=== PATIENT | female | born 1940 | race African-American/Black ===

== ENCOUNTER 2018-02-18 17:46 | Emergency (ER) | payer MEDICARE ==
[~2018-02-18] VITALS: Ht 160 cm; Wt 88.9 kg
[~2018-02-18 17:46] MED LIST: ASA81 MG PO; CLARITIN10 MG PO; COREG3.125 MG PO; DIGITEK125 MCG PO; FLONASE16 GM; FUROSEMIDE; GABAPENTIN300 MG PO; GLYBURIDE MICR1.5 M1; GLYBURIDE1.25 MG PO; IMODIUM2 MG PO; KAOPECTATE240 MG PO; LASIX40 MG PO; LOSARTAN POTASS25 MG PO; PROBIOTIC1 EACH PO; PURELAX510 GM; SINGULAIR10 MG PO; TOVIAZ8 MG PO; TYLENOL 8 HOUR650 MG PO; Z.0.ALDACTONE25 MG PO; Z.0.CORDARONE200 MG PO; Z.0.COREG3.125 MG PO; Z.0.LOSARTAN POTASS2 PO; Z.0.NEURONTIN100 MG; Z.0.NEXIUM40 MG PO; Z.0.NITROSTAT0.4 MG PO; Z.0.PHENERGAN25 M1; Z.0.VESICARE10 MG; Z.0.ZOCOR10 MG PO
[2018-02-18 18:24] LABS: BASOPHILS # (AUTO) 0.1 (0.0-0.1); BASOPHILS % 0.8 % (0.0-1.0); EOSINOPHILS # (AUTO) 0.1 (0.0-0.4); EOSINOPHILS % 1.7 % (0.0-6.0); HEMOGLOBIN 12.3 g/dL (12.0-16.0); LYMPHOCYTES # (AUTO) 2.1 (1.0-3.2); LYMPHOCYTES % 29.3 % (18.0-39.1); MEAN CORPUSCULAR HEMOGLOBIN 27.8 pg (28-32); MEAN CORPUSCULAR HGB CONC 33.2 g/dL (31-35); MEAN CORPUSCULAR VOLUME 83.5 fL (81-99); MONOCYTES # (AUTO) 0.7 (0.2-0.8); MONOCYTES % 9.5 % (4.4-11.3); NEUTROPHILS # (AUTO) 4.1 (2.1-6.9); NEUTROPHILS % 58.6 % (38.7-80.0); PLATELET COUNT 133 x10e3/uL (140-360); RED BLOOD COUNT 4.43 x10e6/uL (3.6-5.1); RED CELL DISTRIBUTION WIDTH 14.2 % (11.7-14.4)
[2018-02-18 18:32] LABS: INR 1.15; PROTHROMBIN TIME 13.8 seconds (11.9-14.5)
[2018-02-18 18:33] LABS: PARTIAL THROMBOPLASTIN TIME 28.1 seconds (23.8-35.5)
--- NOTE | 2018-02-18 18:40 | Diagnostic Imaging Report ---
Chest, one view. History: Chest pain. Comparison: 12/28/2013. Findings: There is a tri-lead left chest cardiac device in place. The heart is mildly enlarged, unchanged.. There is a small right pleural effusion. Mild prominence of the central pulmonary vasculature. Perihilar peribronchial thickening. There is no consolidated pneumonia or pneumothorax. There are degenerative changes about the visualized osseous structures.. Impression: Mild pulmonary venous congestion. Signed by: Dr. Narendra Scruggs M.D. on 02/18/2018 6:37 PM
[2018-02-18 18:42] LABS: ALBUMIN 3.5 g/dL (3.5-5.0); ALBUMIN/GLOBULIN RATIO 1.1 (0.8-2.0); CALCIUM 9.2 mg/dL (8.4-10.2); CREATININE, SERUM 1.08 mg/dL (0.57-1.11)
[2018-02-18 20:31] VITALS: BP 125/60
== END 2018-02-18 20:48 | disposition home or self-care (01) ==
LOC: ER 17:46
DX: R07.89 Other chest pain (principal); I10 Essential (primary) hypertension; E11.9 Type 2 diabetes mellitus without complications; I50.9 Heart failure, unspecified; I48.91 Unspecified atrial fibrillation; K21.9 Gastro-esophageal reflux disease without esophagitis; E78.5 Hyperlipidemia, unspecified
CPT/HCPCS: 36415; 71045; 80053; 82550; 82553; 83880; 84484; 85025; 85610; 85730; 93005; 99284

== ENCOUNTER 2018-08-27 10:56 | Observation (INO) | payer MEDICARE ==
[~2018-08-27] VITALS: Ht 158.8 cm; Wt 88.9 kg
--- OUTSIDE RECORDS SUMMARY | 2018-08-27 11:00 | XMS REPORT | Continuity of Care Document ---
Author Author [facility] Interface Address Unknown Phone Unavailable Problems Problem Status Onset Date Classification Date Reported Comments Source Lower abdominal pain, unspecified 11/26/2017 02/22/2018 [facility] ANGINA MESENTERIC Active 11/14/2017 [facility] ANGINA Active 11/14/2017 [facility] ABDOMINAL PAIN Active 06/04/2016 [facility] ABD PAIN Active 06/04/2016 [facility] GENERALIZED WEAKNESS, UTI, DIARRHEA Active 06/25/2014 [facility] DIARRHEA Active 06/25/2014 [facility] Arthritis Resolved Problem 02/22/2018 [facility] Congestive heart disease Resolved Problem 02/22/2018 [facility] DM , type 2(<span ID="[id number]">Confirmed</span>) Active Problem 02/22/2018 [facility] Hypertension Active Problem 02/22/2018 [facility] UTI (<span ID="[id number]">Confirmed</span>) Resolved Problem 02/22/2018 [facility] Chronic vascular disorders of intestine 02/22/2018 [facility] Encounter for immunization 02/22/2018 [facility] Abnormal weight loss 02/22/2018 [facility] Constipation, unspecified 02/22/2018 [facility] Hypertensive heart and chronic kidney disease with heart failure and stage 1 through stage 4 chronic kidney disease, or unspecified chronic kidney disease 02/22/2018 [facility] Chronic systolic heart failure 02/22/2018 [facility] Chronic kidney disease, stage 3 02/22/2018 [facility] Type 2 diabetes mellitus with diabetic chronic kidney disease 02/22/2018 [facility] Dilated cardiomyopathy 02/22/2018 [facility] Umbilical hernia without obstruction or gangrene 02/22/2018 [facility] Obstructive sleep apnea (pediatric) 02/22/2018 [facility] Pure hypercholesterolemia, unspecified 02/22/2018 [facility] Spondylosis without myelopathy or radiculopathy, lumbar region 02/22/2018 [facility] Unspecified osteoarthritis, unspecified site 02/22/2018 [facility] Morbid obesity due to excess calories 02/22/2018 [facility] Presence of automatic cardiac defibrillator 02/22/2018 [facility] nursing home use of insulin 02/22/2018 [facility] Diabetes Resolved Problem 02/22/2018 [facility] COUGH Active [facility] COUGH Active [facility] MALAISE AND FATIGUE NEC Active [facility] GENERALIZED ABDOMINAL PAIN Active [facility] EDEMA, UNSPECIFIED Active [facility] CHRONIC VASCULAR DISORDERS OF INTESTINE Active [facility] Medications Medication Details Route Status Patient Instructions Ordering Provider Order Date Source Levemir 30 unit, Route: SUB-Q, Bedtime, Dosing Weight 89.091, kg, Start date: 11/15/17 21:00:00 CDT, Duration: 30 day, Stop date: 12/14/17 21:00:00 CDT No Longer Active 11/16/2017 [facility] insulin glargine 30 unit, 0.3 mL, Route: SUB-Q, Drug form: SOLN, Bedtime, Start date: 11/15/17 21:00:00 CDT, Duration: 30 day, Stop date: 12/14/17 21:00:00 CDTNotes: (Same as: Lantus) Do not hold insulin without cont acting prescriber WASTE: F/P - Black; E - Solexa Trash Bin "single patient use only" No Longer Active 11/16/2017 [facility] Ditropan 5 mg, 1 tab, Route: PO, Drug form: TAB, BID, Start date: 11/15/17 9:00:00 CDT, Duration: 30 day, Stop date: 12/14/17 17:00:00 CDTNotes: Same as: Ditropan) No Longer Active 11/15/2017 [facility] Losartan 25 mg, 1 tab, Route: PO, Drug form: TAB, Daily, Dosing Weight 89.091, kg, Start date: 11/15/17 9:00:00 CDT, Duration: 30 day, Stop date: 12/14/17 9:00:00 CDTNotes: (Same as: Cozaar) Inactive 11/15/2017 [facility] Tradjenta 5 mg, Route: PO, Drug form: TAB, Daily, Dosing Weight 89.091, kg, Start date: 11/15/17 9:00:00 CDT No Longer Active 11/15/2017 [facility] Toviaz 8 mg, Route: PO, Drug form: ERTAB, Daily, Dosing Weight 89.091, kg, Start date: 11/15/17 9:00:00 CDT, Duration: 30 day, Stop date: 12/14/17 9:00:00 CDT No Longer Active 11/15/2017 [facility] Digoxin 0.125 MG Oral Tablet 0.125 mg, 1 tab, Route: PO, Drug form: TAB, Daily, Dosing Weight 89.091, kg, Start date: 11/15/17 9:00:00 CDT, Duration: 30 day, Stop date: 12/14/17 9:00:00 CDTNotes: Take on an Empty Stomach (Same as: Lanoxin) No Longer Active 11/15/2017 [facility] Tradjenta 5mg Tablet Tradjenta 5mg Tablet, 1 tab, Drug form: MISC, Route: PO, Daily, 11/15/17 9:00:00 CDT, Duration: 30 day, Stop date: 12/14/17 9:00:00 CDT No Longer Active 11/15/2017 [facility] Coreg 3.125 mg, 1 tab, Route: PO, Drug form: TAB, Daily, Dosing Weight 89.091, kg, Start date: 11/15/17 9:00:00 CDT, Duration: 30 day, Stop date: 12/14/17 9:00:00 CDTNotes: Give with food. (Same As: Coreg) No Longer Active 11/15/2017 [facility] Streptococcus pneumoniae serotype 1 capsular antigen diphtheria [id number] protein conjugate vaccine / Streptococcus pneumoniae serotype 14 capsular antigen diphtheria [id number] protein conjugate vaccine / Streptococcus pneumoniae serotype 18C capsular antigen d 0.5 mL, Route: IM, Drug Form: INJ, Daily, Start date: 11/15/17 9:00:00 CDT, Duration: 1 doses or times, Stop date: 11/15/17 9:00:00 CDTNotes: Shake well prior to use (Same as: Prevnar 13) Inactive 11/15/2017 [facility] Amiodarone 200 mg, 1 tab, Route: PO, Drug form: TAB, Daily, Dosing Weight 89.091, kg, Start date: 11/15/17 9:00:00 CDT, Duration: 30 day, Stop date: 12/14/17 9:00:00 CDTNotes: (Same as: Cordarone) No Longer Active 11/15/2017 [facility] Simvastatin 10 mg, 1 tab, Route: PO, Drug form: TAB, Bedtime, Dosing Weight 89.091, kg, Start date: 11/14/17 21:00:00 CDT, Duration: 30 day, Stop date: 12/13/17 21:00:00 CDTNotes: (Same as: Zocor) No Longer Active 11/15/2017 [facility] montelukast 10 mg, 1 tab, Route: PO, Drug form: TAB, Bedtime, Dosing Weight 89.091, kg, Start date: 11/14/17 21:00:00 CDT, Duration: 30 day, Stop date: 12/13/17 21:00:00 CDTNotes: (Same as:Singulair) No Longer Active 11/15/2017 [facility] normal saline 0.9% IV 500 mL 500 mL, Rate: 50 ml/hr, Infuse over: 10 hr, Route: IV, Dosing Weight 89.091 kg, Total Volume: 500, Start date: 11/14/17 19:49:00 CDT, Stop date: 12/14/17 20:00:00 CDT, 2.02, m2 No Longer Active 11/15/2017 [facility] Dicyclomine 20 mg, 1 tab, Route: PO, Drug form: TAB, Q6H, Dosing Weight 89.091, kg, Start date: 11/14/17 18:00:00 CDT, Duration: 30 day, Stop date: 12/14/17 12:00:00 CDTNotes: (Same as: Bentyl) No Longer Active 11/14/2017 [facility] Acetylcysteine 200 MG/ML Inhalant Solution 600 mg, 3 mL, Route: PO, Drug form: SOLN, BID, Dosing Weight 100.256, kg, Start date: 11/14/17 17:00:00 CDT, Duration: 2 day, Stop date: 11/16/17 9:00:00 CDTNotes: for oral use only No Longer Active 11/14/2017 [facility] Docusate 100 mg, 1 cap, Route: PO, Drug form: CAP, BID, Dosing Weight 100.256, kg, Start date: 11/14/17 17:00:00 CDT, Duration: 30 day, Stop date: 12/14/17 9:00:00 CDTNotes: (Same as: Colace) (Do Not Crush) No Longer Active 11/14/2017 [facility] pantoprazole 40 mg, 1 tab, Route: PO, Drug form: ECTAB, BID-Before Meals, Dosing Weight 89.091, kg, Start date: 11/14/17 16:30:00 CDT, Duration: 30 day, Stop date: 12/14/17 7:30:00 CDTNotes: Tablet should not be chewed or crushed. (Same as: Protonix) No Longer Active 11/14/2017 [facility] Insulin, Aspart, Human 7 unit, Route: SUB-Q, TID-Before Meals, Dosing Weight 89.091, kg, Start date: 11/14/17 16:30:00 CDT, Duration: 30 day, Stop date: 12/14/17 11:30:00 CDT Inactive 11/14/2017 [facility] Humalog 7 unit, 0.07 mL, Route: SUB-Q, Drug form: SOLN, TID-Before Meals, Start date: 11/14/17 16:30:00 CDT, Duration: 30 day, Stop date: 12/14/17 11:30:00 CDTNotes: (Same as: Humalog ) Roll in palms of hands g ently; Do not shake `vigorously. "Single Patient Use Only " WASTE: F/P - Black; E - Municipal Trash Bin Stable for 28 days at room temperature. Expires in days from Date No Longer Active 11/14/2017 [facility] gabapentin 300 MG Oral Capsule 300 mg, 1 cap, Route: PO, Drug form: CAP, Q8H, Dosing Weight 89.091, kg, Start date: 11/14/17 16:00:00 CDT, Duration: 30 day, Stop date: 12/14/17 8:00:00 CDTNotes: (Same as: Neurontin) No Longer Active 11/14/2017 [facility] Pls bring home med Toviaz and Tradjenta to pharmacy for labe Pls bring home med Toviaz and Tradjenta to pharmacy for labe, Galindo RN, Drug form: MISC, Route: MISC, Continuous, 11/14/17 15:30:00 CDT, Duration: 30 day, Stop date: 12/14/17 15:29:00 CDT Inactive 11/14/2017 [facility] Insulin Lispro 5 unit, 0.05 mL, Route: SUB-Q, Drug form: SOLN, TID-Before Meals, Dosing Weight 89.091, kg, PRN Blood Glucose Results, Start date: 11/14/17 14:56:00 CDT, Duration: 30 day, Stop date: 12/14/17 14:55:0 0 CDTNotes: (Same as: Humalog ) Roll in palms of hands gently; Do not shake `vigorously. "Single Patient Use Only " WASTE: F/P - Black; E - Municipal Trash Bin Stable for 28 days at room temperature. Expires in days from Date No Longer Active 11/14/2017 [facility] Dextrose 50% Syringe 12.5 gm, 25 mL, Route: IVP, Drug Form: INJ, Dosing Weight 89.091, kg, PRN, PRN Blood Glucose Results, Start date: 11/14/17 14:56:00 CDT, Duration: 30 day, Stop date: 12/14/17 14:55:00 CDT No Longer Active 11/14/2017 [facility] Glucagon 1 mg, Route: IM, Drug form: PDR/INJ, PRN, Dosing Weight 89.091, kg, PRN Blood Glucose Results, Start date: 11/14/17 14:56:00 CDT, Duration: 30 day, Stop date: 12/14/17 14:55:00 CDT No Longer Active 11/14/2017 [facility] Albuterol 0.833 MG/ML / Ipratropium [place] 0.167 MG/ML Inhalant Solution 3 mL, Route: INHALATION, Drug Form: SOLN, Dosing Weight 89.091, kg, BID, PRN as needed for shortness of breath or wheezing, Start date: 11/14/17 14:54:00 CDT, Duration: 30 day, Stop date: 12/14/17 14:53:00 CDTNotes: (Same as: Duoneb) No Longer Active 11/14/2017 [facility] Nitroglycerin 0.4 MG Sublingual Tablet [Nitrostat] 0.4 mg, 1 tab, Route: SL, Drug form: TAB, Q5Min, Dosing Weight 89.091, kg, PRN Chest Pain, Start date: 11/14/17 14:54:00 CDT, Duration: 3 doses or times, Stop date: Limited # of timesNotes: (Same as:Nitroquick, Nitrostat) "Do Not Crush" Sublingual tablet No Longer Active 11/14/2017 [facility] Insulin, Aspart, Human 7 unit, SUB-Q, TID-Before Meals, 0 Refill(s) Active 11/14/2017 [facility] Ondansetron 4 mg, 2 mL, Route: IVP, Drug form: INJ, Q6H, Dosing Weight 100.256, kg, PRN Nausea & Vomiting, Start date: 11/14/17 12:03:00 CDT, Duration: 30 day, Stop date: 12/14/17 12:02:00 CDTNotes: (Same as: Mika) MEDICATION WASTE Product Size: 4 mg Product Wasted: ___ mg No Longer Active 11/14/2017 [facility] Acetaminophen 325 mg, 1 tab, Route: PO, Drug form: TAB, Q4H, Dosing Weight 100.256, kg, PRN Pain Score 4-6, Start date: 11/14/17 12:03:00 CDT, Duration: 30 day, Stop date: 12/14/17 12:02:00 CDTNotes: Do not exceed 4 gm/day. (Same as: Tylenol) No Longer Active 11/14/2017 [facility] pantoprazole 40 mg oral enteric coated tablet 40 mg=1 tab, PO, BID-Before Meals, # 60 tab, 0 Refill(s) Active 06/09/2016 [facility] montelukast 10 mg oral tablet 10 mg=1 tab, PO, Bedtime, 0 Refill(s) Active 06/09/2016 [facility] gabapentin 300 MG Oral Capsule 300 mg=1 cap, PO, Q8H, # 30 cap, 0 Refill(s) Active 06/09/2016 [facility] dicyclomine 20 mg oral tablet 20 mg=1 tab, PO, Q6H, # 30 tab, 0 Refill(s) Active 06/09/2016 [facility] Linagliptin 5 MG Oral Tablet [Tradjenta] 5 mg=1 tab, PO, Daily, # 30 tab, 3 Refill(s) Active 06/09/2016 [facility] cefpodoxime 200 MG Oral Tablet [Vantin] 200 mg=1 tab, PO, Q12H, # 6 tab, 0 Refill(s) Active 06/09/2016 [facility] pantoprazole 40 mg, 1 tab, Route: PO, Drug form: ECTAB, BID-Before Meals, Dosing Weight 100.256, kg, Start date: 06/08/16 17:49:00 CDT, Duration: 30 day, Stop date: 07/08/16 16:30:00 CSTNotes: Tablet should not be chewed or crushed. (Same as: Protonix) No Longer Active 06/08/2016 [facility] ergocalciferol 50,000 IntlUnit, 1 cap, Route: PO, Drug form: CAP, Daily, Dosing Weight 100.256, kg, Start date: 06/08/16 9:00:00 CDT, Duration: 3 day, Stop date: 06/10/16 9:00:00 CDTNotes: (Same as: Vitamin D) "Do Not Crush" No Longer Active 06/08/2016 [facility] Calcium Chloride 0.0014 MEQ/ML / Potassium Chloride 0.004 MEQ/ML / Sodium Chloride 0.103 MEQ/ML / Sodium Lactate 0.028 MEQ/ML Injectable Solution 1,000 mL, Rate: 25 ml/hr, Infuse over: 40 hr, Route: IV, Dosing Weight 100.256 kg, Total Volume: 1,000, Start date: 06/08/16 1:27:00 CDT, Duration: 1 day, Stop date: 06/09/16 1:26:00 CDT No Longer Active 06/08/2016 [facility] Morphine 2 mg, Route: IVP, Q5Min, Dosing Weight 100.256, kg, PRN Pain Score 4-6, Start date: 06/08/16 1:26:00 CDT, Duration: 5 doses or times, Stop date: Limited # of times Inactive 06/08/2016 [facility] Oxycodone 10 mg, Route: PO, Drug form: TAB, Q4H, Dosing Weight 100.256, kg, PRN Pain Score 7-10, Start date: 06/08/16 1:26:00 CDT, Duration: 30 day, Stop date: 07/08/16 1:25:00 BUILDING INSULATION SUPERVISOR Inactive 06/08/2016 [facility] Hydromorphone 0.5 mg, Route: IVP, Q5Min, Dosing Weight 100.256, kg, PRN Pain Score 7-10, Start date: 06/08/16 1:26:00 CDT, Duration: 4 doses or times, Stop date: Limited # of times Inactive 06/08/2016 [facility] Flumazenil 0.2 mg, Route: IVP, PRN, Dosing Weight 100.256, kg, PRN Benzodiazepine Reversal, Initial dose, Start date: 06/08/16 1:26:00 CDT, Duration: 30 day, Stop date: 07/08/16 0:25:00 BUILDING INSULATION SUPERVISOR Inactive 06/08/2016 [facility] Naloxone 0.4 mg, Route: IVP, Q2MIN, Dosing Weight 100.256, kg, PRN Narcotic Reversal, Start date: 06/08/16 1:26:00 CDT, Duration: 8 doses or times, Stop date: Limited # of times Inactive 06/08/2016 [facility] Meperidine 12.5 mg, Route: IVP, Q30Min, Dosing Weight 100.256, kg, PRN Other -See Comment, For shivering, Start date: 06/08/16 1:26:00 CDT, Duration: 2 doses or times, Stop date: Limited # of times Inactive 06/08/2016 [facility] Nitroglycerin 0.4 MG Sublingual Tablet [Nitrostat] 0.4 mg, 1 tab, Route: SL, Drug form: TAB, Q5Min, Dosing Weight 100.256, kg, PRN Chest Pain, Start date: 06/07/16 9:02:00 CDT, Duration: 3 doses or times, Stop date: Limited # of timesNotes: (Same as:Nitroquick, Nitrostat) "Do Not Crush" Sublingual tablet No Longer Active 06/07/2016 [facility] Metoprolol 5 mg, 5 mL, Route: IV, Drug form: INJ, Q2H, Dosing Weight 100.256, kg, PRN Tachycardia, Start date: 06/07/16 9:02:00 CDT, Duration: 30 day, Stop date: 07/07/16 9:01:00 CSTNotes: (Same as: Lopressor) Push over 2 minutes No Longer Active 06/07/2016 [facility] Morphine 2 mg, 1 mL, Route: IVP, Drug form: INJ, Q2H, Dosing Weight 100.256, kg, PRN Chest Pain, Start date: 06/07/16 9:02:00 CDT, Duration: 30 day, Stop date: 07/07/16 9:01:00 CSTNotes: (Same as:MORPhine Sulfate) No Longer Active 06/07/2016 [facility] Hydralazine 10 mg, 0.5 mL, Route: IV, Drug form: INJ, Q4H, Dosing Weight 100.256, kg, PRN Hypertension, Start date: 06/07/16 9:02:00 CDT, Duration: 30 day, Stop date: 07/07/16 9:01:00 CSTNotes: (Same as: Apresoline) Push over 5 minutes No Longer Active 06/07/2016 [facility] Prednisone 20 mg, 1 tab, Route: PO, Drug form: TAB, Daily, Dosing Weight 100.256, kg, Start date: 06/07/16 9:00:00 CDT, Duration: 2 day, Stop date: 06/08/16 9:00:00 CDTNotes: Take with food. No Longer Active 06/07/2016 [facility] Metformin hydrochloride 500 MG Oral Tablet 500 mg, 1 tab, Route: PO, Drug form: TAB, BID-Meals, Dosing Weight 100.256, kg, Start date: 06/07/16 8:00:00 CDT, Duration: 30 day, Stop date: 07/06/16 17:00:00 CSTNotes: (Same as: Glucophage) Take with meal No Longer Active 06/07/2016 [facility] Levemir FlexPen 10 unit, 0.1 mL, Route: SUB-Q, Drug form: INJ, Bedtime, Dosing Weight 100.256, kg, Start date: 06/06/16 21:00:00 CDT, Duration: 30 day, Stop date: 07/05/16 21:00:00 CSTNotes: Same as Levemir Do not hold insulin without contacting prescriber WASTE: F/P - Black; E - Municipal Trash Bin "single patient use only" No Longer Active 06/07/2016 [facility] Colchicine 0.6 mg, 1 tab, Route: PO, Drug form: TAB, BID, Dosing Weight 100.256, kg, Start date: 06/06/16 17:00:00 CDT, Duration: 30 day, Stop date: 07/06/16 9:00:00 BUILDING INS[employer]ATION SUPERVISOR No Longer Active 06/06/2016 [facility] Kayexalate 15 gm, 60 mL, Route: PO, Drug form: SUSP, ONCE, Dosing Weight 100.256, kg, Start date: 06/06/16 14:02:00 CDT, Stop date: 06/06/16 14:02:00 CDTNotes: (sodium polystyrene sulfonate 15 gm/60 ml SOHAIL) Sh dionicio well before use. (Same as: Kayexalate, SPS) Inactive 06/06/2016 [facility] Losartan 25 mg, 1 tab, Route: PO, Drug form: TAB, Daily, Dosing Weight 100.256, kg, Start date: 06/06/16 9:00:00 CDT, Duration: 30 day, Stop date: 07/05/16 9:00:00 CSTNotes: (Same as: Cozaar) Inactive 06/06/2016 [facility] Spironolactone 25 mg, 1 tab, Route: PO, Drug form: TAB, Daily, Dosing Weight 100.256, kg, Start date: 06/06/16 9:00:00 CDT, Duration: 30 day, Stop date: 07/05/16 9:00:00 CSTNotes: (Same As: Aldactone) Inactive 06/06/2016 [facility] Insulin, Aspart, Human 2 unit, 0.02 mL, Route: SUB-Q, Drug form: SOLN, TID-Before Meals, Dosing Weight 100.256, kg, Start date: 06/06/16 7:30:00 CDT, Duration: 30 day, Stop date: 07/05/16 16:30:00 CSTNotes: Roll in palms of hands gently; Do not shake vigorously. (Same as: NovoLOG) "single patient use only" WASTE: F/P - Black; E - Municipal Trash Bin Stable for 28 days at room temperature. Expires in days from Date No Longer Active 06/06/2016 [facility] Insulin, Aspart, Human 4 unit, 0.04 mL, Route: SUB-Q, Drug form: SOLN, Bedtime, Dosing Weight 100.256, kg, PRN Blood Glucose Results, Start date: 06/05/16 21:55:00 CDT, Duration: 30 day, Stop date: 07/05/16 21:54:00 CSTNotes: Roll in palms of hands gently; Do not shake vigorously. (Same as: NovoLOG) "single patient use only" WASTE: F/P - Black; E - Municipal Trash Bin Stable for 28 days at room temperature. Expires in days from Date No Longer Active 06/06/2016 [facility] Dextrose 50% Syringe 12.5 gm, 25 mL, Route: IVP, Drug Form: INJ, Dosing Weight 100.256, kg, PRN, PRN Blood Glucose Results, Start date: 06/05/16 21:55:00 CDT, Duration: 30 day, Stop date: 07/05/16 20:54:00 BUILDING INSULATION SUPERVISOR No Longer Active 06/06/2016 [facility] Glucagon 1 mg, Route: IM, Drug form: PDR/INJ, PRN, Dosing Weight 100.256, kg, PRN Blood Glucose Results, Start date: 06/05/16 21:55:00 CDT, Duration: 30 day, Stop date: 07/05/16 20:54:00 BUILDING INSULATION SUPERVISOR No Longer Active 06/06/2016 [facility] Rocephin 1 gm, Route: IM, Drug form: PDR/INJ, [id number], Dosing Weight 100.256, kg, Start date: 06/05/16 14:00:00 CDT, Duration: 30 day, Stop date: 07/04/16 14:00:00 CSTNotes: (Same As: Rocephin). Use with 100 mL NS and infuse over 30 min MEDICATION WASTE Product Size: 1000 mg Product Wasted: ___ mg No Longer Active 06/05/2016 [facility] Ceftriaxone 1 gm, Route: IVPB, [id number], Dosing Weight 100.256, kg, Start date: 06/05/16 14:00:00 CDT, Duration: 30 day, Stop date: 07/04/16 14:00:00 CSTNotes: (Same As: Rocephin). Use with 100 mL NS and infuse over 30 min MEDICATION WASTE Product Size: 1000 mg Product Wasted: ___ mg No Longer Active 06/05/2016 [facility] Albuterol 0.833 MG/ML / Ipratropium [place] 0.167 MG/ML Inhalant Solution 3 ml, Route: NEB, Drug Form: SOLN, Dosing Weight 100.256, kg, QID, PRN Respiratory Protocol, Start date: 06/05/16 13:52:00 CDT, Duration: 30 day, Stop date: 07/05/16 13:51:00 CSTNotes: (Same as: Duoneb) No Longer Active 06/05/2016 [facility] digoxin 125 mcg (0.125 mg) oral tablet 0.125 mg, 1 tab, Route: PO, Drug form: TAB, Daily, Dosing Weight 100.256, kg, Start date: 06/05/16 9:00:00 CDT, Duration: 30 day, Stop date: 07/04/16 9:00:00 CSTNotes: Take on an Empty Stomach (Same as: Lanoxin) No Longer Active 06/05/2016 [facility] Furosemide 40 MG Oral Tablet [Lasix] 40 mg, 1 tab, Route: PO, Drug form: TAB, Daily, Dosing Weight 100.256, kg, Start date: 06/05/16 9:00:00 CDT, Duration: 30 day, Stop date: 07/04/16 9:00:00 CSTNotes: (Same as: Lasix) May cause GI upset. Give with food or milk. No Longer Active 06/05/2016 [facility] Amiodarone 200 mg, 1 tab, Route: PO, Drug form: TAB, Daily, Dosing Weight 100.256, kg, Start date: 06/05/16 9:00:00 CDT, Duration: 30 day, Stop date: 07/04/16 9:00:00 CSTNotes: (Same as: Cordarone) No Longer Active 06/05/2016 [facility] Aldactone 25 mg, 1 tab, Route: PO, Drug form: TAB, Daily, Dosing Weight 100.256, kg, Start date: 06/05/16 9:00:00 CDT, Duration: 30 day, Stop date: 07/04/16 9:00:00 CSTNotes: (Same As: Aldactone) Inactive 06/05/2016 [facility] Toviaz 8 mg, Route: PO, Daily, Dosing Weight 100.256, kg, Start date: 06/05/16 9:00:00 CDT, Duration: 30 day, Stop date: 07/04/16 9:00:00 BUILDING INSULATION SUPERVISOR No Longer Active 06/05/2016 [facility] Losartan 25 mg, 1 tab, Route: PO, Drug form: TAB, Daily, Dosing Weight 100.256, kg, Start date: 06/05/16 9:00:00 CDT, Duration: 30 day, Stop date: 07/04/16 9:00:00 CSTNotes: (Same as: Cozaar) Inactive 06/05/2016 [facility] Metformin 500, PO, BID, 0 Refill(s) No Longer Active 06/05/2016 [facility] Albuterol 0.833 MG/ML / Ipratropium [place] 0.167 MG/ML Inhalant Solution 3 ml, INHALATION, BID, PRN as needed for shortness of breath or wheezing, # 30 ea, 0 Refill(s) Active 06/05/2016 [facility] Nurse pls bring pt's own med: (Toviaz)Fesoterodine to [facility] Nurse pls bring pt's own med: (Toviaz)Fesoterodine to [employer], reminder, Drug form: MISC, Route: MISC, QSHIFT, 06/05/16 8:00:00 CDT, Duration: 30 day, Stop date: 07/05/16 0:00:00 [employer] No Longer Active 06/05/2016 [facility] Protonix 40 mg, Route: IVP, Drug form: INJ, Before Breakfast, Dosing Weight 109.091, kg, Start date: 06/05/16 7:30:00 CDT, Duration: 30 day, Stop date: 07/04/16 7:30:00 CSTNotes: For IV push reconstitute with 10 ml 0.9% sodium chloride and push over 2 minutes. (Same as: Protonix) No Longer Active 06/05/2016 [facility] gabapentin 300 MG Oral Capsule 300 mg, 1 cap, Route: PO, Drug form: CAP, Q8H, Dosing Weight 100.256, kg, (CrCl > 60 ml/min), Start date: 06/05/16 0:00:00 CDT, Duration: 30 day, Stop date: 07/04/16 16:00:00 CSTNotes: (Same as: Neurontin) No Longer Active 06/05/2016 [facility] Bentyl 20 mg, 1 tab, Route: PO, Drug form: TAB, Q6H, Dosing Weight 100.256, kg, Start date: 06/05/16 0:00:00 CDT, Duration: 30 day, Stop date: 07/04/16 18:00:00 CSTNotes: (Same as: Bentyl) No Longer Active 06/05/2016 [facility] Tylenol 650 mg, 2 tab, Route: PO, Drug form: TAB, Q4H, Dosing Weight 100.256, kg, PRN Pain Score 1-3, Start date: 06/04/16 21:23:00 CDT, Duration: 30 day, Stop date: 07/04/16 21:22:00 CSTNotes: Do not exceed 4 gm/day. (Same as: Tylenol) No Longer Active 06/05/2016 [facility] Singulair 10 mg, 1 tab, Route: PO, Drug form: TAB, Bedtime, Dosing Weight 100.256, kg, Start date: 06/04/16 21:00:00 CDT, Duration: 30 day, Stop date: 07/03/16 21:00:00 CSTNotes: (Same as:Singulair) No Longer Active 06/05/2016 [facility] atorvastatin 40 mg, 1 tab, Route: PO, Drug form: TAB, Bedtime, Dosing Weight 100.256, kg, Start date: 06/04/16 21:00:00 CDT, Duration: 30 day, Stop date: 07/03/16 21:00:00 CSTNotes: (Same as: Lipitor) No Longer Active 06/05/2016 [facility] Coreg 3.125 mg, 1 tab, Route: PO, Drug form: TAB, Q12H, Dosing Weight 109.091, kg, Start date: 06/04/16 21:00:00 CDT, Duration: 30 day, Stop date: 07/04/16 9:00:00 CSTNotes: Give with food. (Same As: Coreg) No Longer Active 06/05/2016 [facility] Flonase 0.05 mg/inh nasal spray 2 spray, Route: Each Affected Nostril, Drug Form: SPRY, Dosing Weight 100.256, kg, Daily, PRN Allergies, Start date: 06/04/16 20:39:00 CDT, Duration: 30 day, Stop date: 07/04/16 20:38:00 CSTNotes: (Same as: Flonase) No Longer Active 06/05/2016 [facility] gabapentin 300 MG Oral Capsule 300 mg=1 cap, PO, TID, # 90 cap, 2 Refill(s) Active 06/29/2014 [facility] gabapentin 300 MG Oral Capsule 300 mg=1 cap, PO, TID, 0 Refill(s) Inactive 06/29/2014 [facility] Furosemide 40 MG Oral Tablet [Lasix] 40 mg, 1 tab, Route: PO, Drug form: TAB, Daily, Dosing Weight 109.091, kg, Start date: 06/28/14 9:00:00, Duration: 30 day, Stop date: 07/27/14 9:00:00Notes: (Same as: Lasix) May cause GI upset. Give with food or milk. No Longer Active 06/28/2014 [facility] remove patch 1 patch, Route: TOP, Bedtime, Drug form: ERFILM, Start date: 06/27/14 21:00:00, Duration: 30 day, Stop date: 07/26/14 21:00:00Notes: Remove patch 12 hours after application each day. No Longer Active 06/28/2014 [facility] 120 ACTUAT Fluticasone propionate 0.05 MG/ACTUAT Nasal Inhaler [Flonase] 1 inhalation, Route: NASAL, Drug Form: SPRY, Dosing Weight 109.091, kg, BID, Start date: 06/27/14 17:00:00, Duration: 30 day, Stop date: 07/27/14 9:00:00Notes: (Same as: Flonase) No Longer Active 06/27/2014 [facility] Protonix 40 mg, 1 tab, Route: PO, Drug form: ECTAB, Before Dinner, Start date: 06/27/14 16:30:00, Duration: 30 day, Stop date: 07/26/14 16:30:00Notes: Tablet should not be chewed or crushed. (Same as: Protonix) No Longer Active 06/27/2014 [facility] Spironolactone 50 mg, 1 tab, Route: PO, Drug form: TAB, Daily, Dosing Weight 109.091, kg, Start date: 06/27/14 14:00:00, Duration: 30 day, Stop date: 07/27/14 9:00:00Notes: (Same As: Aldactone) No Longer Active 06/27/2014 [facility] Lasix 40 mg, 4 mL, Route: IVP, Drug form: INJ, ONCE, Dosing Weight 109.091, kg, Start date: 06/27/14 12:47:00, Stop date: 06/27/14 12:47:00Notes: (Same as: Lasix) Inactive 06/27/2014 [facility] omeprazole 40 mg oral delayed release capsule 40 mg=1 cap, PO, Daily, # 30 cap, 0 Refill(s) Active 06/27/2014 [facility] carvedilol 3.13 MG Oral Tablet [Coreg] 3.125 mg=1 tab, PO, Daily, 0 Refill(s) Active 06/27/2014 [facility] Tessalon Perles 100 mg, PO, Daily, 0 Refill(s) Active 06/27/2014 [facility] Furosemide 40 MG Oral Tablet [Lasix] 40 mg=1 tab, PO, Daily, # 30 tab, 0 Refill(s) Active 06/27/2014 [facility] 24 HR Fesoterodine Fumarate 8 MG Extended Release Tablet [Toviaz] 8 mg=1 tab, PO, Daily, 0 Refill(s) Active 06/27/2014 [facility] 3 ML liraglutide 6 MG/ML Prefilled Syringe [Victoza] 1.2 mg=0.2 mL, MISC, 0 Refill(s) Active 06/27/2014 [facility] 120 ACTUAT Fluticasone propionate 0.05 MG/ACTUAT Nasal Inhaler [Flonase] 1 spray, NASAL, BID, # 16 gm, 0 Refill(s) Active 06/27/2014 [facility] Lidocaine Hydrochloride 0.05 MG/MG Transdermal Patch [Lidoderm] 1 patch, Route: TOP, Daily, Drug form: FILM, Start date: 06/27/14 9:00:00, Duration: 30 day, Stop date: 07/26/14 9:00:00, Remove after 12 hoursSpecial Instructions: Remove after 12 hoursNotes: Apply only once for up to 12 hours in a 24-hour period (12 hours on and 12 hours off). (Same as: Lidoderm) "Remove old patch before application of new patch" No Longer Active 06/27/2014 [facility] gabapentin 300 MG Oral Capsule 300 mg, 1 cap, Route: PO, Drug form: CAP, TID, Dosing Weight 109.091, kg, Start date: 06/27/14 9:00:00, Duration: 30 day, Stop date: 07/26/14 17:00:00Notes: (Same as: Neurontin) No Longer Active 06/27/2014 [facility] Digoxin 0.125 MG Oral Tablet 0.125 mg, 1 tab, Route: PO, Drug form: TAB, Daily, Dosing Weight 109.091, kg, Start date: 06/27/14 9:00:00, Duration: 30 day, Stop date: 07/26/14 9:00:00Notes: Take on an Empty Stomach (Same as: Lanoxin) No Longer Active 06/27/2014 [facility] Nexium 40 mg, Route: PO, Drug form: ECCAP, Daily, Dosing Weight 109.091, kg, Start date: 06/27/14 9:00:00, Duration: 30 day, Stop date: 07/26/14 9:00:00 No Longer Active 06/27/2014 [facility] Aspirin 81 MG Enteric Coated Tablet 81 mg, 1 tab, Route: PO, Drug form: ECTAB, Daily, Dosing Weight 109.091, kg, Start date: 06/27/14 9:00:00, Duration: 30 day, Stop date: 07/26/14 9:00:00Notes: Do not crush or chew. (Same As: Ecotrin) No Longer Active 06/27/2014 [facility] Amiodarone 200 mg, 1 tab, Route: PO, Drug form: TAB, Daily, Dosing Weight 109.091, kg, Start date: 06/27/14 9:00:00, Duration: 30 day, Stop date: 07/26/14 9:00:00Notes: (Same as: Cordarone) No Longer Active 06/27/2014 [facility] Simvastatin 10 mg, 1 tab, Route: PO, Drug form: TAB, Bedtime, Dosing Weight 109.091, kg, Start date: 06/26/14 21:00:00, Duration: 30 day, Stop date: 07/25/14 21:00:00Notes: (Same as: Zocor) No Longer Active 06/27/2014 [facility] heparin, porcine 5,000 unit, 1 mL, Route: SUB-Q, Drug form: INJ, Q12H, Dosing Weight 109.091, kg, Start date: 06/26/14 21:00:00, Duration: 30 day, Stop date: 07/26/14 9:00:00Notes: porcine heparin No Longer Active 06/27/2014 [facility] Acetaminophen 325 MG / Hydrocodone Bitartrate 5 MG Oral Tablet [[place] 5/325] 1 tab, Route: PO, Drug Form: TAB, Dosing Weight 109.545, kg, Q8H, PRN Pain Score 1-3, Start date: 06/26/14 9:19:00, Duration: 30 day, Stop date: 07/26/14 9:18:00Notes: (Same as: [place] 325/5) Do not exceed 4gm/day of acetaminophen. No Longer Active 06/26/2014 [facility] Sodium Chloride 0.154 MEQ/ML Injectable Solution 250 mL, 250 ml/hr, Infuse Over: 1 hr, Route: IV, ONCE, Priority: STAT, Dosing Weight 109.545 kg, Start date: 06/26/14 9:15:00, Duration: 1 doses or times, Stop date: 06/26/14 9:15:00 Inactive 06/26/2014 [facility] Sodium Chloride 0.154 MEQ/ML Injectable Solution 1,000 mL, Rate: 40 ml/hr, Infuse over: 25 hr, Route: IV, Dosing Weight 109.545 kg, Total Volume: 1,000, Start date: 06/26/14 3:58:00, Duration: 30 day, Stop date: 07/26/14 3:57:00 No Longer Active 06/26/2014 [facility] Ceftriaxone 1 gm, Route: IVPB, Q24H, Dosing Weight 109.545, kg, Priority: STAT, Start date: 06/26/14 3:58:00, Duration: 30 day, Stop date: 07/25/14 3:58:00Notes: (Same As: Rocephin). Use with 100ml NS mini-bag PLUS and infuse over 30 min No Longer Active 06/26/2014 [facility] Acetaminophen 650 mg, 2 tab, Route: PO, Drug form: TAB, Q4H, Dosing Weight 109.545, kg, PRN Pain 1-3/Temp > 100.4 F, Start date: 06/26/14 3:58:00, Duration: 30 day, Stop date: 07/26/14 3:57:00Notes: Do not exceed 4 gm/day. (Same as: Tylenol) No Longer Active 06/26/2014 [facility] Rocephin 1 gm, Route: IVPB, ONCE, Dosing Weight 109.545, kg, Priority: STAT, Start date: 06/26/14 2:10:00, Stop date: 06/26/14 2:10:00Notes: (Same As: Rocephin). Use with 100ml NS mini-bag PLUS and infuse over 30 min Inactive 06/26/2014 [facility] Sodium Chloride 0.154 MEQ/ML Injectable Solution 1,000 mL, Rate: 125 ml/hr, Infuse over: 8 hr, Route: IV, Dosing Weight 109.545 kg, Total Volume: 1,000, Start date: 06/25/14 23:56:00, Duration: 30 day, Stop date: 07/25/14 23:55:00 No Longer Active 06/26/2014 [facility] Allergies, Adverse Reactions, Alerts Substance Category Reaction Severity Reaction type Status Date Reported Comments Source codeine Assertion Allergy to substance Active [facility] Vicodin<sup>1</sup> Assertion Drug intolerance Active Hydrocodone makes pt feel like she is on "cloud 9", like she is on drugs; pt does not want to take [facility] traMADol Assertion Drug allergy Active [facility] Immunizations Immunization Date Given Site Status Last Updated Comments Source pneumococcal 13-valent vaccine 11/15/2017 Right Deltoid completed Steve [facility] Results Order Name Results Value Reference Range Date Interpretation Comments Source ELECTROLYTES AGAP 14.0 meq/L 10.0 - 20.0 11/16/2017 [facility] ELECTROLYTES eGFR 65 mL/min/1.73m2 11/16/2017 Result Comment: The eGFR is calculated using the CKD-EPI formula. In most young, healthy individuals the eGFR will be >90 mL/min/1.73m2. The eGFR declines with age. An eGFR of 60-89 may be normal in some populations, particularly the elderly, for whom the CKD-EPI formula has not been extensively validated. Use of the eGFR is not recommended in the following populations: Individuals with unstable creatinine concentrations, including patients and those with serious co-morbid conditions. Patients with extremes in muscle mass or diet. The data above are obtained from the National Kidney Disease Education Program (NKDEP) which additionally recommends that when the eGFR is used in patients with extremes of body mass index for purposes of drug dosing, the eGFR should be multiplied by the estimated BMI. [facility] ELECTROLYTES Potassium Lvl 4.0 meq/L 3.5 - 5.1 11/16/2017 [facility] ELECTROLYTES Chloride Lvl 106 meq/L 95 - 109 11/16/2017 [facility] ELECTROLYTES CO2 25 meq/L 24 - 32 11/16/2017 [facility] ELECTROLYTES Calcium Lvl 8.7 mg/dL 8.5 - 10.5 11/16/2017 [facility] ELECTROLYTES Sodium Lvl 141 meq/L 135 - 145 11/16/2017 [facility] ELECTROLYTES Glucose Lvl 183 mg/dL 70 - 99 11/16/2017 [facility] ELECTROLYTES BUN 17 mg/dL 7 - 22 11/16/2017 [facility] ELECTROLYTES Creatinine Lvl 0.97 mg/dL 0.50 - 1.40 11/16/2017 [facility] HEMATOLOGY Eosinophils # 0.1 K/CMM 0.0 - 0.5 11/16/2017 [facility] Basophils 0.7 % 0.0 - 1.0 11/16/2017 [facility] Segs-Bands # 4.0 K/CMM 1.5 - 8.1 11/16/2017 [facility] HEMATOLOGY Lymphocytes # 1.6 K/CMM 1.0 - 5.5 11/16/2017 [facility] HEMATOLOGY Eosinophils 1.6 % 0.0 - 4.0 11/16/2017 [facility] HEMATOLOGY Segs 63.8 % 45.0 - 75.0 11/16/2017 [facility] HEMATOLOGY Lymphocytes 25.8 % 20.0 - 40.0 11/16/2017 [facility] Monocytes 8.1 % 2.0 - 12.0 11/16/2017 [facility] Monocytes # 0.5 K/CMM 0.0 - 0.8 11/16/2017 [facility] HEMATOLOGY MCHC 33.2 g/dL 32.0 - 36.0 11/16/2017 [facility] HEMATOLOGY Platelet 108 K/CMM 133 - 450 11/16/2017 [facility] HEMATOLOGY RDW 13.4 % 11.5 - 14.5 11/16/2017 [facility] HEMATOLOGY WBC 6.2 K/CMM 3.7 - 10.4 11/16/2017 [facility] HEMATOLOGY RBC 4.38 M/CMM 4.20 - 5.40 11/16/2017 [facility] HEMATOLOGY Hgb 12.2 g/dL 12.0 - 16.0 11/16/2017 [facility] HEMATOLOGY MPV 10.3 fL 7.4 - 10.4 11/16/2017 [facility] MCH 27.9 pg 27.0 - 31.0 11/16/2017 [facility] HEMATOLOGY Hct 36.8 % 36.0 - 48.0 11/16/2017 [facility] MCV 84.0 fL 80.0 - 98.0 11/16/2017 [facility] URINE AND STOOL UA Nitrite Negative (11/15/17 1:35 PM) Negative 11/15/2017 [facility] URINE AND STOOL UA Leuk Est Negative (11/15/17 1:35 PM) Negative 11/15/2017 [facility] URINE AND STOOL UA Sq Epi Occasional /LPF Few /LPF 11/15/2017 [facility] URINE AND STOOL UA WBC 1 /HPF 0 - 5 11/15/2017 [facility] URINE AND STOOL UA RBC null 0 - 2 11/15/2017 [facility] URINE AND STOOL UA Bacteria Occasional /HPF None Seen /HPF 11/15/2017 [facility] URINE AND STOOL UA Spec Grav 1.017 <=1.030 11/15/2017 [facility] URINE AND STOOL UA pH 6.0 5.0 - 8.0 11/15/2017 [facility] URINE AND STOOL UA Color Yellow *NA* (11/15/17 1:35 PM) Yellow 11/15/2017 [facility] URINE AND STOOL UA Turbidity Clear (11/15/17 1:35 PM) Clear 11/15/2017 [facility] URINE AND STOOL UA Protein Negative mg/dL Negative mg/dL 11/15/2017 [facility] URINE AND STOOL UA Glucose Negative mg/dL Negative mg/dL 11/15/2017 [facility] URINE AND STOOL UA Ketones Negative mg/dL Negative mg/dL 11/15/2017 [facility] URINE AND STOOL UA Bili Negative *NA* (11/15/17 1:35 PM) Negative 11/15/2017 [facility] URINE AND STOOL UA Blood Negative (11/15/17 1:35 PM) Negative 11/15/2017 [facility] URINE AND STOOL UA Urobilinogen 4.0 mg/dL 0.1 - 1.0 11/15/2017 [facility] Abdomen CTA Abdomen CTA Patient Name: GIDEON MORENO : 1940; Age: 77 years y/o Female MR: [id number] * CT ANGIOGRAPHY OF THE ABDOMEN \\T\\ (CT aortography of the abdominal aorta and branches) HISTORY: Abdominal pain. Suspected "mesenteric angina". Prior imaging studies reviewed: Noncontrast computed tomography scan of the abdomen and pelvis of 06/05/2016. Technique: High resolution (2 mm) helical CT images were obtained from the domes of the diaphragm through the mid pelvis during the dynamic administration of nonionic iodinated contrast for maximal arterial opacification (CT angiography technique). 3-dimensional (obtained by postprocessing on an independent workstation), sagittal and coronal maximum intensity projection reconstructions (obtained by postprocessing on an independent workstation) were also provided. CT radiation dose DLP: 964 mGy-cm FINDINGS: (Vascular) 1. Mild atherosclerotic change involving the abdominal aorta. There is no aneurysm or dissection. There is no significant plaquing. 2. The following aortic measurements were obtained: Distal descending thoracic aorta: 2.4 cm Proximal abdominal aorta: 2.1 cm Abdominal aorta at the level of the renal arteries: 1.8 cm Mid infrarenal abdominal aorta: 1.6 cm Lower abdominal aorta near bifurcation: 1.6 cm Left common iliac artery: 0.9 cm Right common iliac artery: 1.0 cm Left external iliac artery: 0.6 cm Right external iliac artery: 0.6 cm 3. There are no findings to suggest mesenteric ischemia/mesenteric angina. The celiac axis is patent. There is mild diffuse narrowing of the proximal celiac artery. The superior mesenteric artery is widely patent. The inferior mesenteric is small but patent. The branch vessels are unremarkable. There are no occlusions or stenoses involving the visualized branch vessels. No mesenteric collaterals are identified. 4. Moderate calcifications involving the proximal renal arteries. The renal arteries are patent without significant stenosis. 5. The visualized common/external iliac arteries and hypogastric arteries are patent. FINDINGS: (Nonvascular) 1. There is no evidence of an acute intra-abdominal process. There is no free intraperitoneal gas, intra-abdominal abscess, bowel obstruction, or ascites. 2. Moderate diffuse fatty change involving the liver. The liver is otherwise unremarkable. No focal lesions are seen. 3. There are postcholecystectomy changes. Surgical clips are noted in the right upper quadrant. . 4. Tiny (6 x 3 mm) low-density left adrenal nodule (image 65 of series 5). This probably represents a tiny adenoma. The adrenal glands are otherwise unremarkable. 5. The spleen and pancreas are normal in appearance. 6. The kidneys are normal in size without hydronephrosis. There is a 4.3 x 3.4 x 3.2 cm right upper pole renal cyst. There is a 1.1 cm left lower pole renal cyst and a very tiny left upper pole renal cyst. No other focal renal lesions are seen. No calculi are seen. 7. No mass, adenopathy, ascites, or other fluid collection. 8. There is a moderate amount of fecal material within the colon (constipation). The gastrointestinal structures are otherwise unremarkable. A normal appendix is visualized. There is no evidence of obstruction or ileus. Evaluation of the gastrointestinal structures is limited due to lack of oral contrast. 9. Very small umbilical hernia. There is no herniation of bowel. 10. Very mild scattered degenerative disc disease. There is moderate degenerative facet disease at L5-S1 and mild degenerative facet disease at L3-L4 and at L4-L5. 11. The visualized lung bases are clear. There are no infiltrates or pleural effusions. There is mild scarring or atelectasis in the right base. 12. The heart is normal in size. There is no pericardial effusion. 13. Transvenous pacemaker is noted. SL: DAX 11/15/2017 - - Read by: Benjamin Rausch MD Dictated Date/time: 11/15/17 16:35 Electronically Signed by: Benjamin Rausch MD 11/15/17 16:49 FINAL REPORT [facility] ELECTROLYTES CO2 27 meq/L 24 - 32 11/15/2017 [facility] ELECTROLYTES Sodium Lvl 140 meq/L 135 - 145 11/15/2017 [facility] ELECTROLYTES Potassium Lvl 3.5 meq/L 3.5 - 5.1 11/15/2017 [facility] ELECTROLYTES Chloride Lvl 104 meq/L 95 - 109 11/15/2017 [facility] ELECTROLYTES Creatinine Lvl 1.06 mg/dL 0.50 - 1.40 11/15/2017 [facility] ELECTROLYTES BUN 24 mg/dL 7 - 22 11/15/2017 [facility] ELECTROLYTES AGAP 12.5 meq/L 10.0 - 20.0 11/15/2017 [facility] ELECTROLYTES Glucose Lvl 207 mg/dL 70 - 99 11/15/2017 [facility] ELECTROLYTES Calcium Lvl 8.9 mg/dL 8.5 - 10.5 11/15/2017 [facility] ELECTROLYTES eGFR 59 mL/min/1.73m2 11/15/2017 Result Comment: The eGFR is calculated using the CKD-EPI formula. In most young, healthy individuals the eGFR will be >90 mL/min/1.73m2. The eGFR declines with age. An eGFR of 60-89 may be normal in some populations, particularly the elderly, for whom the CKD-EPI formula has not been extensively validated. Use of the eGFR is not recommended in the following populations: Individuals with unstable creatinine concentrations, including patients and those with serious co-morbid conditions. Patients with extremes in muscle mass or diet. The data above are obtained from the National Kidney Disease Education Program (NKDEP) which additionally recommends that when the eGFR is used in patients with extremes of body mass index for purposes of drug dosing, the eGFR should be multiplied by the estimated BMI. [facility] CHEM PANEL A/G Ratio 0.9 0.7 - 1.6 11/14/2017 [facility] CHEM PANEL AGAP 12.6 meq/L 10.0 - 20.0 11/14/2017 [facility] CHEM PANEL Globulin 4.0 g/dL 2.7 - 4.2 11/14/2017 [facility] CHEM PANEL B/C Ratio 18 6 - 25 11/14/2017 [facility] CHEM PANEL eGFR 46 mL/min/1.73m2 11/14/2017 Result Comment: The eGFR is calculated using the CKD-EPI formula. In most young, healthy individuals the eGFR will be >90 mL/min/1.73m2. The eGFR declines with age. An eGFR of 60-89 may be normal in some populations, particularly the elderly, for whom the CKD-EPI formula has not been extensively validated. Use of the eGFR is not recommended in the following populations: Individuals with unstable creatinine concentrations, including patients and those with serious co-morbid conditions. Patients with extremes in muscle mass or diet. The data above are obtained from the National Kidney Disease Education Program (NKDEP) which additionally recommends that when the eGFR is used in patients with extremes of body mass index for purposes of drug dosing, the eGFR should be multiplied by the estimated BMI. [facility] CHEM PANEL Potassium Lvl 3.6 meq/L 3.5 - 5.1 11/14/2017 [facility] CHEM PANEL Chloride Lvl 102 meq/L 95 - 109 11/14/2017 [facility] CHEM PANEL Calcium Lvl 9.1 mg/dL 8.5 - 10.5 11/14/2017 [facility] CHEM PANEL CO2 28 meq/L 24 - 32 11/14/2017 [facility] CHEM PANEL Total Protein 7.5 g/dL 6.4 - 8.4 11/14/2017 [facility] CHEM PANEL ALT 18 unit/L 0 - 65 11/14/2017 [facility] CHEM PANEL Albumin Lvl 3.5 g/dL 3.5 - 5.0 11/14/2017 [facility] CHEM PANEL AST 20 unit/L 0 - 37 11/14/2017 [facility] CHEM PANEL Alk Phos 76 unit/L 39 - 136 11/14/2017 [facility] CHEM PANEL Bili Total 0.5 mg/dL 0.2 - 1.3 11/14/2017 [facility] CHEM PANEL BUN 23 mg/dL 7 - 22 11/14/2017 [facility] [facility] CHEM PANEL Sodium Lvl 139 meq/L 135 - 145 11/14/2017 [facility] CHEM PANEL Creatinine Lvl 1.29 mg/dL 0.50 - 1.40 11/14/2017 [facility] CHEM PANEL Glucose Lvl 141 mg/dL 70 - 99 11/14/2017 [facility] HEMATOLOGY Eosinophils # 0.1 K/CMM 0.0 - 0.5 11/14/2017 [facility] HEMATOLOGY Basophils # 0.1 K/CMM 0.0 - 0.2 11/14/2017 [facility] HEMATOLOGY Segs-Bands # 4.7 K/CMM 1.5 - 8.1 11/14/2017 [facility] HEMATOLOGY Lymphocytes # 2.6 K/CMM 1.0 - 5.5 11/14/2017 [facility] HEMATOLOGY Monocytes # 0.6 K/CMM 0.0 - 0.8 11/14/2017 [facility] HEMATOLOGY Segs 58.4 % 45.0 - 75.0 11/14/2017 [facility] Eosinophils 0.8 % 0.0 - 4.0 11/14/2017 [facility] Lymphocytes 31.8 % 20.0 - 40.0 11/14/2017 [facility] Basophils 1.1 % 0.0 - 1.0 11/14/2017 [facility] Monocytes 7.9 % 2.0 - 12.0 11/14/2017 [facility] MPV 10.3 fL 7.4 - 10.4 11/14/2017 [facility] Platelet 137 K/CMM 133 - 450 11/14/2017 [facility] RDW 13.7 % 11.5 - 14.5 11/14/2017 [facility] RBC 4.87 M/CMM 4.20 - 5.40 11/14/2017 [facility] Hgb 13.8 g/dL 12.0 - 16.0 11/14/2017 [facility] Hct 41.6 % 36.0 - 48.0 11/14/2017 [facility] MCHC 33.2 g/dL 32.0 - 36.0 11/14/2017 [facility] MCV 85.5 fL 80.0 - 98.0 11/14/2017 [facility] MCH 28.4 pg 27.0 - 31.0 11/14/2017 [facility] WBC 8.0 K/CMM 3.7 - 10.4 11/14/2017 [facility] CHEM PANEL Lipase Lvl 631 unit/L 73 - 393 06/09/2016 [facility] CHEM PANEL Calcium Lvl 8.8 mg/dL 8.5 - 10.5 06/08/2016 [facility] CHEM PANEL CO2 24 meq/L 24 - 32 06/08/2016 [facility] CHEM PANEL Chloride Lvl 103 meq/L 95 - 109 06/08/2016 [facility] CHEM PANEL Potassium Lvl 4.7 meq/L 3.5 - 5.1 06/08/2016 [facility] CHEM PANEL Sodium Lvl 138 meq/L 135 - 145 06/08/2016 [facility] CHEM PANEL eGFR 46 mL/min/1.73m2 06/08/2016 Result Comment: The eGFR is calculated using the CKD-EPI formula. In most young, healthy individuals the eGFR will be >90 mL/min/1.73m2. The eGFR declines with age. An eGFR of 60-89 may be normal in some populations, particularly the elderly, for whom the CKD-EPI formula has not been extensively validated. Use of the eGFR is not recommended in the following populations: Individuals with unstable creatinine concentrations, including patients and those with serious co-morbid conditions. Patients with extremes in muscle mass or diet. The data above are obtained from the National Kidney Disease Education Program (NKDEP) which additionally recommends that when the eGFR is used in patients with extremes of body mass index for purposes of drug dosing, the eGFR should be multiplied by the estimated BMI. [facility] CHEM PANEL AGAP 15.7 meq/L 10.0 - 20.0 06/08/2016 [facility] CHEM PANEL BUN 30 mg/dL 7 - 22 06/08/2016 [facility] CHEM PANEL Glucose Lvl 177 mg/dL 70 - 99 06/08/2016 [facility] CHEM PANEL Creatinine Lvl 1.30 mg/dL 0.50 - 1.40 06/08/2016 [facility] CHEM PANEL Lipase Lvl 600 unit/L 73 - 393 06/08/2016 [facility] CARDIAC ENZYMES BNP 33 pg/mL <=100 pg/mL 06/07/2016 [facility] CHEM PANEL Vitamin D, 25-OH, Total null 30 - 100 06/07/2016 [facility] CHEM PANEL Uric Acid 7.7 mg/dL 2.5 - 7.0 06/07/2016 [facility] CHEM PANEL Amylase Lvl 101 unit/L 25 - 115 06/07/2016 [facility] CHEM PANEL Phosphorus 4.0 mg/dL 2.5 - 4.5 06/07/2016 [facility] CHEM PANEL Magnesium Lvl 2.1 mg/dL 1.8 - 2.4 06/07/2016 [facility] IMMUNOLOGY Prealbumin 17.7 mg/dL 18.0 - 45.0 06/07/2016 [facility] IMMUNOLOGY Homocyst Tot 14.6 umol/L 3.7 - 13.9 06/07/2016 [facility] LIPIDS CHD Risk 3.40 3.90 - 5.80 06/07/2016 [facility] LIPIDS VLDL 25 06/07/2016 [facility] LIPIDS LDL (Calculated) 76 mg/dL <=99 mg/dL 06/07/2016 [facility] LIPIDS HDL 42 mg/dL >=61 mg/dL 06/07/2016 [facility] LIPIDS Trig 124 mg/dL <=149 mg/dL 06/07/2016 [facility] LIPIDS Chol 143 mg/dL <=199 mg/dL 06/07/2016 [facility] SPECIAL CHEMISTRY Hgb A1C 8.1 % <=5.6 % 06/07/2016 [facility] CHEM PANEL Uric Acid 7.3 mg/dL 2.5 - 7.0 06/06/2016 [facility] CHEM PANEL Lipase Lvl 761 unit/L 73 - 393 06/06/2016 [facility] CHEM PANEL eGFR 31 mL/min/1.73m2 06/06/2016 Result Comment: The eGFR is calculated using the CKD-EPI formula. In most young, healthy individuals the eGFR will be >90 mL/min/1.73m2. The eGFR declines with age. An eGFR of 60-89 may be normal in some populations, particularly the elderly, for whom the CKD-EPI formula has not been extensively validated. Use of the eGFR is not recommended in the following populations: Individuals with unstable creatinine concentrations, including patients and those with serious co-morbid conditions. Patients with extremes in muscle mass or diet. The data above are obtained from the National Kidney Disease Education Program (NKDEP) which additionally recommends that when the eGFR is used in patients with extremes of body mass index for purposes of drug dosing, the eGFR should be multiplied by the estimated BMI. [facility] CHEM PANEL Glucose Lvl 214 mg/dL 70 - 99 06/06/2016 [facility] CHEM PANEL BUN 39 mg/dL 7 - 22 06/06/2016 [facility] CHEM PANEL Calcium Lvl 8.8 mg/dL 8.5 - 10.5 06/06/2016 [facility] CHEM PANEL AGAP 13.5 meq/L 10.0 - 20.0 06/06/2016 [facility] CHEM PANEL CO2 23 meq/L 24 - 32 06/06/2016 [facility] CHEM PANEL Chloride Lvl 102 meq/L 95 - 109 06/06/2016 [facility] CHEM PANEL Creatinine Lvl 1.80 mg/dL 0.50 - 1.40 06/06/2016 [facility] CHEM PANEL Potassium Lvl 5.5 meq/L 3.5 - 5.1 06/06/2016 [facility] CHEM PANEL Sodium Lvl 133 meq/L 135 - 145 06/06/2016 [facility] HEMATOLOGY Basophils # 0.1 K/CMM 0.0 - 0.2 06/06/2016 [facility] HEMATOLOGY Segs-Bands # 4.8 K/CMM 1.5 - 8.1 06/06/2016 [facility] HEMATOLOGY Lymphocytes # 1.5 K/CMM 1.0 - 5.5 06/06/2016 [facility] HEMATOLOGY Monocytes # 0.5 K/CMM 0.0 - 0.8 06/06/2016 [facility] HEMATOLOGY Eosinophils # 0.1 K/CMM 0.0 - 0.5 06/06/2016 [facility] HEMATOLOGY Basophils 1.1 % 0.0 - 1.0 06/06/2016 [facility] HEMATOLOGY Monocytes 6.8 % 2.0 - 12.0 06/06/2016 [facility] HEMATOLOGY Eosinophils 2.1 % 0.0 - 4.0 06/06/2016 [facility] HEMATOLOGY Segs 68.1 % 45.0 - 75.0 06/06/2016 [facility] HEMATOLOGY Lymphocytes 21.9 % 20.0 - 40.0 06/06/2016 [facility] HEMATOLOGY RDW 13.2 % 11.5 - 14.5 06/06/2016 [facility] HEMATOLOGY Hct 38.9 % 36.0 - 48.0 06/06/2016 [facility] HEMATOLOGY MCV 84.2 fL 80.0 - 98.0 06/06/2016 [facility] HEMATOLOGY MCH 27.2 pg 27.0 - 31.0 06/06/2016 [facility] HEMATOLOGY MCHC 32.3 g/dL 32.0 - 36.0 06/06/2016 [facility] HEMATOLOGY WBC 7.0 K/CMM 3.7 - 10.4 06/06/2016 [facility] HEMATOLOGY RBC 4.62 M/CMM 4.20 - 5.40 06/06/2016 [facility] HEMATOLOGY Hgb 12.6 g/dL 12.0 - 16.0 06/06/2016 [facility] MPV 11.0 fL 7.4 - 10.4 06/06/2016 [facility] HEMATOLOGY Platelet 121 K/CMM 133 - 450 06/06/2016 [facility] URINE AND STOOL UA Hyal Cast 11 /LPF 0 - 2 06/05/2016 [facility] URINE AND STOOL UA Bacteria Many /HPF None Seen /HPF 06/05/2016 [facility] URINE AND STOOL UA Mucus Few /LPF None Seen /LPF 06/05/2016 [facility] URINE AND STOOL UA Glucose Negative mg/dL Negative mg/dL 06/05/2016 [facility] URINE AND STOOL UA Protein Negative mg/dL Negative mg/dL 06/05/2016 [facility] URINE AND STOOL UA pH 6.0 5.0 - 8.0 06/05/2016 [facility] URINE AND STOOL UA Spec Grav 1.016 <=1.030 06/05/2016 [facility] URINE AND STOOL UA Color Yellow *NA* (06/05/16 12:51 PM) Yellow 06/05/2016 [facility] URINE AND STOOL UA Turbidity Slight *ABN* (06/05/16 12:51 PM) Clear 06/05/2016 [facility] URINE AND STOOL UA WBC 14 /HPF 0 - 5 06/05/2016 [facility] URINE AND STOOL UA Sq Epi Moderate /LPF Few /LPF 06/05/2016 [facility] URINE AND STOOL UA Leuk Est Trace *ABN* (06/05/16 12:51 PM) Negative 06/05/2016 [facility] URINE AND STOOL UA Bili Negative *NA* (06/05/16 12:51 PM) Negative 06/05/2016 [facility] URINE AND STOOL UA Urobilinogen 4.0 mg/dL 0.1 - 1.0 06/05/2016 [facility] URINE AND STOOL UA Nitrite Negative (06/05/16 12:51 PM) Negative 06/05/2016 [facility] URINE AND STOOL UA Blood Negative (06/05/16 12:51 PM) Negative 06/05/2016 [facility] URINE AND STOOL UA RBC 1 /HPF 0 - 2 06/05/2016 [facility] URINE AND STOOL UA Ketones Negative mg/dL Negative mg/dL 06/05/2016 [facility] ELECTROLYTES Chloride Lvl 101 meq/L 95 - 109 06/05/2016 [facility] ELECTROLYTES Potassium Lvl 5.1 meq/L 3.5 - 5.1 06/05/2016 [facility] ELECTROLYTES CO2 26 meq/L 24 - 32 06/05/2016 [facility] ELECTROLYTES Creatinine Lvl 1.80 mg/dL 0.50 - 1.40 06/05/2016 [facility] ELECTROLYTES Sodium Lvl 135 meq/L 135 - 145 06/05/2016 [facility] ELECTROLYTES BUN 33 mg/dL 7 - 22 06/05/2016 [facility] ELECTROLYTES Glucose Lvl 144 mg/dL 70 - 99 06/05/2016 [facility] ELECTROLYTES eGFR 31 mL/min/1.73m2 06/05/2016 Result Comment: The eGFR is calculated using the CKD-EPI formula. In most young, healthy individuals the eGFR will be >90 mL/min/1.73m2. The eGFR declines with age. An eGFR of 60-89 may be normal in some populations, particularly the elderly, for whom the CKD-EPI formula has not been extensively validated. Use of the eGFR is not recommended in the following populations: Individuals with unstable creatinine concentrations, including patients and those with serious co-morbid conditions. Patients with extremes in muscle mass or diet. The data above are obtained from the National Kidney Disease Education Program (NKDEP) which additionally recommends that when the eGFR is used in patients with extremes of body mass index for purposes of drug dosing, the eGFR should be multiplied by the estimated BMI. [facility] ELECTROLYTES Calcium Lvl 8.4 mg/dL 8.5 - 10.5 06/05/2016 [facility] ELECTROLYTES AGAP 13.1 meq/L 10.0 - 20.0 06/05/2016 [facility] Abdomen/Pelvis wo IV contrast CT Abdomen/Pelvis wo IV contrast CT Patient Name: GIDEON MORENO : 1940; Age: 75 years y/o Female MR: [id number] Study: Abdomen/Pelvis wo IV contrast CT 06/05/2016 1:41 PM CDT Referring physician:Ava Hall MD Clinical Indication: Abdominal pain, acute; Comparison: None TECHNIQUE: Sequential trans-axial images were obtained with a multi-detector helical CT without administration of IV contrast. Coronal and sagittal reconstructions were obtained. FINDINGS: LUNG BASES: Mild dependent atelectasis or fibrosis in the right lung base. No pleural or pericardial effusion. Heart is enlarged. Pacemaker leads are present. ABDOMINAL ORGANS: No focal liver or splenic abnormality. No pelvocaliectasis or ureterectasis bilaterally. No calculi are identified within either kidney or along the course of either collecting system. 4 cm right renal upper pole cyst. The adrenals, pancreas are unremarkable. Gallbladder absent. PERITONEUM AND RETROPERITONEUM: No abdominal or pelvic lymphadenopathy. No free intraperitoneal air. No abnormal fluid collection identified in the abdomen or pelvis. The abdominal aorta is unremarkable. BOWEL: No bowel abnormality identified in the abdomen or pelvis. The appendix is unremarkable. PELVIS: No pelvic mass. Bladder is unremarkable. BONES: Advanced degenerative changes in both acetabula. There are degenerative changes within the lumbar spine. No discrete bone lesion is otherwise evident. IMPRESSION: Prior cholecystectomy. 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 Moderate degenerative changes in the lumbar spine. No bone lesion otherwise. No significant or acute abdominal or pelvic CT findings. SL: DENNY 06/05/2016 - - Read by: Gulshan Duong MD Dictated Date/time: 10/22/16 20:53 Electronically Signed by: Gulshan Duong MD 06/05/16 20:59 FINAL REPORT [facility] Chest 1view DX Chest 1view DX Patient Name: GIDEON MORENO : 1940; Age: 75 years y/o Female MR: [id number] Study: Chest 1view DX 06/05/2016 1:50 PM CDT Ordering Physician: Clinical Indication: Shortness of Breath; Comparison: 05/13/2016 Stable cardiomegaly, without overt congestive heart failure or pulmonary edema. Streaky densities in the right lung base are stable from previous. This could represent infiltrate or, atelectasis or fibrosis. There is no significant pleural effusion noted currently. Pacemaker defibrillator implant is present as before. IMPRESSION: Stable cardiomegaly, without overt congestive heart failure. Small right lung base opacity which could be atelectasis, fibrosis or pneumonia. SL: DENNY 06/05/2016 - - Read by: Gulshan Duong MD Dictated Date/time: 06/05/16 20:32 Electronically Signed by: Gulshan Duong MD 06/05/16 20:33 FINAL REPORT [facility] CHEM PANEL Amylase Lvl 98 unit/L 25 - 115 06/05/2016 [facility] CHEM PANEL AST 20 unit/L 0 - 37 06/05/2016 [facility] CHEM PANEL Alk Phos 83 unit/L 39 - 136 06/05/2016 [facility] CHEM PANEL Albumin Lvl 3.5 g/dL 3.5 - 5.0 06/05/2016 [facility] CHEM PANEL ALT 21 unit/L 0 - 65 06/05/2016 [facility] CHEM PANEL Bili Total 0.5 mg/dL 0.2 - 1.3 06/05/2016 [facility] CHEM PANEL Total Protein 8.0 g/dL 6.4 - 8.4 06/05/2016 [facility] CHEM PANEL A/G Ratio 0.8 0.7 - 1.6 06/05/2016 [facility] CHEM PANEL Globulin 4.5 g/dL 2.7 - 4.2 06/05/2016 [facility] CHEM PANEL B/C Ratio 25 6 - 25 06/05/2016 [facility] HEMATOLOGY MCV 85.4 fL 80.0 - 98.0 06/05/2016 [facility] HEMATOLOGY MCH 27.1 pg 27.0 - 31.0 06/05/2016 [facility] MCHC 31.7 g/dL 32.0 - 36.0 06/05/2016 [facility] RDW 13.8 % 11.5 - 14.5 06/05/2016 [facility] Platelet 162 K/CMM 133 - 450 06/05/2016 [facility] MPV 11.7 fL 7.4 - 10.4 06/05/2016 [facility] WBC 11.9 K/CMM 3.7 - 10.4 06/05/2016 [facility] RBC 5.27 M/CMM 4.20 - 5.40 06/05/2016 [facility] Hgb 14.3 g/dL 12.0 - 16.0 06/05/2016 [facility] Hct 45.1 % 36.0 - 48.0 06/05/2016 [facility] Eosinophils 1.6 % 0.0 - 4.0 06/05/2016 [facility] Monocytes 7.7 % 2.0 - 12.0 06/05/2016 [facility] Segs 64.7 % 45.0 - 75.0 06/05/2016 [facility] Lymphocytes 24.4 % 20.0 - 40.0 06/05/2016 [facility] Segs-Bands # 7.7 K/CMM 1.5 - 8.1 06/05/2016 [facility] Basophils 1.6 % 0.0 - 1.0 06/05/2016 [facility] Lymphocytes # 2.9 K/CMM 1.0 - 5.5 06/05/2016 [facility] Eosinophils # 0.2 K/CMM 0.0 - 0.5 06/05/2016 [facility] Monocytes # 0.9 K/CMM 0.0 - 0.8 06/05/2016 [facility] Basophils # 0.2 K/CMM 0.0 - 0.2 06/05/2016 [facility] RBC Morph Normal (06/04/16 7:08 PM) 06/05/2016 [facility] Plt Morph Normal (06/04/16 7:08 PM) 06/05/2016 [facility] Ext Lower Venous Doppler Bilat US Ext Lower Venous Doppler Bilat US Ext Lower Venous Doppler Bilat US CLINICAL HX: edema; bilateral leg edema COMPARISON: none TECHNIQUE: Reyna scale imaging, compression techniques and spectral analysis were utilized to evaluate the deep venous system of both lower extremities from the inguinal ligament to the popliteal fossa. FINDINGS: There is adequate compression, respiratory variability, and appropriate response to augmentation in the CFV, FV and popliteal veins in both thighs. The junction of the profunda vein to the SFV is patent bilaterally. Posterior tibial trunk and the saphenous vein demonstrate normal compressibility. IMPRESSION: No evidence for deep vein thrombosis in the examined veins of both lower extremities. : [id number] 05/13/2016 - - Read by: Cachorro Collins MD Dictated Date/time: 05/13/16 14:07 Electronically Signed by: Cachorro Collins MD 05/13/16 14:09 FINAL REPORT [facility] Chest 2 views DX Chest 2 views DX PA and lateral chest: The lateral view is limited by motion. A left subclavian triple lead pacemaker is seen in satisfactory position. The aorta is tortuous. The cardiomediastinal silhouette, pulmonary vasculature and jose m are otherwise within normal limits. There is mild scarring or subsegmental atelectasis in the right lateral and posterior costophrenic angle. The lungs and pleural spaces are otherwise clear. There are no significant osseous abnormalities. IMPRESSION: No acute radiographic abnormalities in the chest. [id number] 05/13/2016 - - Read by: Armando Verdugo MD Dictated Date/time: 05/13/16 14:19 Electronically Signed by: Armando Verdugo MD 05/13/16 14:20 FINAL REPORT [facility] CHEM PANEL Magnesium Lvl 2.0 mg/dL 1.8 - 2.4 06/27/2014 [facility] CHEM PANEL Phosphorus 4.2 mg/dL 2.5 - 4.5 06/27/2014 [facility] ELECTROLYTES AGAP 14.0 meq/L 10.0 - 20.0 06/27/2014 [facility] ELECTROLYTES eGFR 65 mL/min/1.73m2 06/27/2014 1Result Comment: The eGFR is calculated using the CKD-EPI formula. In most young, healthy individuals the eGFR will be >90 mL/min/1.73m2. The eGFR declines with age. An eGFR of 60-89 may be normal in some populations, particularly the elderly, for whom the CKD-EPI formula has not been extensively validated. Use of the eGFR is not recommended in the following populations: Individuals with unstable creatinine concentrations, including patients and those with serious co-morbid conditions. Patients with extremes in muscle mass or diet. The data above are obtained from the National Kidney Disease Education Program (NKDEP) which additionally recommends that when the eGFR is used in patients with extremes of body mass index for purposes of drug dosing, the eGFR should be multiplied by the estimated BMI. [facility] ELECTROLYTES BUN 16 mg/dL 7 - 22 06/27/2014 [facility] ELECTROLYTES Calcium Lvl 8.1 mg/dL 8.5 - 10.5 06/27/2014 [facility] ELECTROLYTES CO2 26 meq/L 24 - 32 06/27/2014 [facility] ELECTROLYTES Creatinine Lvl 1.0 mg/dL 0.5 - 1.4 06/27/2014 [facility] ELECTROLYTES Glucose Lvl 105 mg/dL 70 - 99 06/27/2014 3Interpretive Data: Adult reference range values reflect the clinical guidelines of the [place] [employer]. [facility] ELECTROLYTES Sodium Lvl 144 meq/L 135 - 145 06/27/2014 [facility] ELECTROLYTES Potassium Lvl 4.0 meq/L 3.5 - 5.1 06/27/2014 [facility] ELECTROLYTES Chloride Lvl 108 meq/L 95 - 109 06/27/2014 [facility] HEMATOLOGY Eosinophils # 0.3 K/CMM 0.0 - 0.5 06/27/2014 [facility] HEMATOLOGY Monocytes # 0.5 K/CMM 0.0 - 0.8 06/27/2014 [facility] HEMATOLOGY Basophils 0.6 % 0.0 - 1.0 06/27/2014 [facility] HEMATOLOGY Segs 60.9 % 45.0 - 75.0 06/27/2014 [facility] Lymphocytes 27.7 % 20.0 - 40.0 06/27/2014 [facility] HEMATOLOGY Monocytes 7.2 % 2.0 - 12.0 06/27/2014 [facility] HEMATOLOGY Segs-Bands # 4.3 K/CMM 1.5 - 8.1 06/27/2014 [facility] HEMATOLOGY Eosinophils 3.6 % 0.0 - 4.0 06/27/2014 [facility] Lymphocytes # 2.0 K/CMM 1.0 - 5.5 06/27/2014 [facility] MCV 87.4 fL 80.0 - 98.0 06/27/2014 [facility] RBC 4.18 M/CMM 4.20 - 5.40 06/27/2014 [facility] Hgb 11.9 g/dL 12.0 - 16.0 06/27/2014 [facility] HEMATOLOGY MCH 28.5 pg 27.0 - 31.0 06/27/2014 [facility] HEMATOLOGY Hct 36.5 % 36.0 - 48.0 06/27/2014 [facility] MCHC 32.6 g/dL 32.0 - 36.0 06/27/2014 [facility] HEMATOLOGY RDW 14.3 % 11.5 - 14.5 06/27/2014 [facility] HEMATOLOGY WBC 7.1 K/CMM 3.7 - 10.4 06/27/2014 [facility] MPV 10.9 fL 7.4 - 10.4 06/27/2014 [facility] Platelet 102 K/CMM 133 - 450 06/27/2014 [facility] MOLECULAR DIAGNOSTIC C difficile DNA Negative 5 (06/26/14 9:16 AM) Negative 06/26/2014 5Interpretive Data: [employer] Clostridium difficile assay utilizes loop-mediated isothermal DNA amplification (LAMP) technology to detect a 204 bp region of the tcdA gene within the PaLoc gene segment present in all known toxigenic C. difficile strains. The assay utilizes FDA cleared IVD reagents. Performance characteristics have been verified by the [facility] within the [facility]. The [facility] Laboratory is authorized under the Clinical Laboratory Improvement Amendment of 1988 (CLIA-88) to perform high complexity testing. [facility] URINE AND STOOL UA Color Britt 06/26/2014 [facility] URINE AND STOOL UA Hyal Cast 3 /LPF 0 - 2 06/26/2014 [facility] [facility] URINE AND STOOL UA WBC 3 /HPF 0 - 5 06/26/2014 [facility] URINE AND STOOL UA RBC 3 /HPF 0 - 2 06/26/2014 [facility] URINE AND STOOL UA Sq Epi Few /LPF Few /LPF 06/26/2014 [facility] URINE AND STOOL UA Leuk Est Negative (06/26/14 1:08 AM) Negative 06/26/2014 [facility] URINE AND STOOL UA Nitrite Positive *ABN* (06/26/14 1:08 AM) Negative 06/26/2014 [facility] URINE AND STOOL UA Urobilinogen 4.0 mg/dL 0.1 - 1.0 06/26/2014 [facility] URINE AND STOOL UA Blood Negative (06/26/14 1:08 AM) Negative 06/26/2014 [facility] URINE AND STOOL UA Glucose Negative mg/dL Negative mg/dL 06/26/2014 [facility] URINE AND STOOL UA Protein Negative mg/dL Negative mg/dL 06/26/2014 [facility] URINE AND STOOL UA Spec Grav 1.011 <=1.030 06/26/2014 [facility] URINE AND STOOL UA pH 6.0 5.0 - 8.0 06/26/2014 [facility] URINE AND STOOL UA Turbidity Clear (06/26/14 1:08 AM) Clear 06/26/2014 [facility] URINE AND STOOL UA Bili Negative *NA* (06/26/14 1:08 AM) Negative 06/26/2014 [facility] URINE AND STOOL UA Ketones Negative mg/dL Negative mg/dL 06/26/2014 [facility] ELECTROLYTES AGAP 11.3 meq/L 10.0 - 20.0 06/26/2014 [facility] ELECTROLYTES B/C Ratio 17 6 - 25 06/26/2014 [facility] ELECTROLYTES A/G Ratio 0.8 0.7 - 1.6 06/26/2014 [facility] ELECTROLYTES Globulin 4.0 g/dL 2.0 - 4.0 06/26/2014 [facility] ELECTROLYTES Sodium Lvl 140 meq/L 135 - 145 06/26/2014 [facility] ELECTROLYTES Potassium Lvl 4.3 meq/L 3.5 - 5.1 06/26/2014 [facility] ELECTROLYTES Chloride Lvl 104 meq/L 95 - 109 06/26/2014 [facility] ELECTROLYTES eGFR 65 mL/min/1.73m2 06/26/2014 2Result Comment: The eGFR is calculated using the CKD-EPI formula. In most young, healthy individuals the eGFR will be >90 mL/min/1.73m2. The eGFR declines with age. An eGFR of 60-89 may be normal in some populations, particularly the elderly, for whom the CKD-EPI formula has not been extensively validated. Use of the eGFR is not recommended in the following populations: Individuals with unstable creatinine concentrations, including patients and those with serious co-morbid conditions. Patients with extremes in muscle mass or diet. The data above are obtained from the National Kid[employer] Disease Education Program (NKDEP) which additionally recommends that when the eGFR is used in patients with extremes of body mass index for purposes of drug dosing, the eGFR should be multiplied by the estimated BMI. [facility] ELECTROLYTES Alk Phos 89 unit/L 39 - 136 06/26/2014 [facility] ELECTROLYTES Bili Total 0.5 mg/dL 0.2 - 1.3 06/26/2014 [facility] ELECTROLYTES AST 27 unit/L 0 - 37 06/26/2014 [facility] ELECTROLYTES ALT 18 unit/L 0 - 65 06/26/2014 [facility] ELECTROLYTES Albumin Lvl 3.4 g/dL 3.5 - 5.0 06/26/2014 [facility] ELECTROLYTES Total Protein 7.4 g/dL 6.4 - 8.4 06/26/2014 [facility] ELECTROLYTES Calcium Lvl 8.8 mg/dL 8.5 - 10.5 06/26/2014 [facility] ELECTROLYTES Glucose Lvl 111 mg/dL 70 - 99 06/26/2014 4Interpretive Data: Adult reference range values reflect the clinical guidelines of the [place] [employer]. [facility] ELECTROLYTES CO2 29 meq/L 24 - 32 06/26/2014 [facility] ELECTROLYTES Creatinine Lvl 1.0 mg/dL 0.5 - 1.4 06/26/2014 [facility] ELECTROLYTES BUN 17 mg/dL 7 - 22 06/26/2014 [facility] HEMATOLOGY Monocytes # 0.8 K/CMM 0.0 - 0.8 06/26/2014 [facility] HEMATOLOGY Basophils # 0.2 K/CMM 0.0 - 0.2 06/26/2014 [facility] HEMATOLOGY Eosinophils # 0.3 K/CMM 0.0 - 0.5 06/26/2014 [facility] HEMATOLOGY Lymphocytes # 2.5 K/CMM 1.0 - 5.5 06/26/2014 [facility] HEMATOLOGY Lymphocytes 21.2 % 20.0 - 40.0 06/26/2014 [facility] HEMATOLOGY Basophils 1.4 % 0.0 - 1.0 06/26/2014 [facility] HEMATOLOGY Eosinophils 2.3 % 0.0 - 4.0 06/26/2014 [facility] HEMATOLOGY Segs-Bands # 8.3 K/CMM 1.5 - 8.1 06/26/2014 [facility] HEMATOLOGY Monocytes 6.3 % 2.0 - 12.0 06/26/2014 [facility] HEMATOLOGY Segs 68.8 % 45.0 - 75.0 06/26/2014 [facility] HEMATOLOGY RDW 14.2 % 11.5 - 14.5 06/26/2014 [facility] HEMATOLOGY MCH 27.4 pg 27.0 - 31.0 06/26/2014 [facility] MCHC 31.8 g/dL 32.0 - 36.0 06/26/2014 [facility] HEMATOLOGY Hgb 13.4 g/dL 12.0 - 16.0 06/26/2014 [facility] HEMATOLOGY RBC 4.88 M/CMM 4.20 - 5.40 06/26/2014 [facility] HEMATOLOGY Hct 42.0 % 36.0 - 48.0 06/26/2014 [facility] HEMATOLOGY MCV 86.1 fL 80.0 - 98.0 06/26/2014 [facility] HEMATOLOGY WBC 12.0 K/CMM 3.7 - 10.4 06/26/2014 [facility] HEMATOLOGY MPV 10.3 fL 7.4 - 10.4 06/26/2014 [facility] HEMATOLOGY Platelet 150 K/CMM 133 - 450 06/26/2014 [facility] Vital Signs Vital Sign Value Date Comments Source Temperature Oral (F) 97.7 F 11/16/2017 [facility] Systolic (mm Hg) 108 11/16/2017 [facility] Diastolic (mm Hg) 75 11/16/2017 [facility] Respitory Rate 16 11/16/2017 [facility] Heart Rate 65 11/16/2017 [facility] Respitory Rate 16 11/16/2017 [facility] Respitory Rate 18 11/16/2017 [facility] Systolic (mm Hg) 105 11/16/2017 [facility] Diastolic (mm Hg) 61 11/16/2017 [facility] Temperature Oral (F) 98.4 F 11/16/2017 [facility] Heart Rate 70 11/16/2017 [facility] Heart Rate 69 11/16/2017 [facility] Systolic (mm Hg) 114 11/16/2017 [facility] Diastolic (mm Hg) 82 11/16/2017 [facility] Temperature Oral (F) 97.9 F 11/16/2017 [facility] Height 160.02 cm 11/14/2017 [facility] BMI Calculated 34.79 11/14/2017 [facility] Weight 89.091 11/14/2017 [facility] Heart Rate 80 06/09/2016 [facility] Temperature Oral (F) 97.7 F 06/09/2016 [facility] Systolic (mm Hg) 107 06/09/2016 [facility] Diastolic (mm Hg) 67 06/09/2016 [facility] Respitory Rate 18 06/09/2016 [facility] Respitory Rate 17 06/09/2016 [facility] Respitory Rate 18 06/09/2016 [facility] Systolic (mm Hg) 131 06/09/2016 [facility] Diastolic (mm Hg) 79 06/09/2016 [facility] Temperature Oral (F) 98.1 F 06/09/2016 [facility] Heart Rate 65 06/09/2016 [facility] Heart Rate 68 06/09/2016 [facility] Temperature Oral (F) 98 F 06/09/2016 [facility] Systolic (mm Hg) 113 06/09/2016 [facility] Diastolic (mm Hg) 72 06/09/2016 [facility] BMI Calculated 39.15 06/05/2016 [facility] Height 160.02 cm 06/05/2016 [facility] Weight 100.256 06/05/2016 [facility] Respitory Rate 20 06/29/2014 [facility] Diastolic (mm Hg) 69 06/29/2014 [facility] Systolic (mm Hg) 104 06/29/2014 [facility] Respitory Rate 20 06/29/2014 [facility] Heart Rate 77 06/29/2014 [facility] Temperature Oral (F) 98.5 F 06/29/2014 [facility] Heart Rate 75 06/29/2014 [facility] Systolic (mm Hg) 103 06/29/2014 [facility] Diastolic (mm Hg) 59 06/29/2014 [facility] Respitory Rate 16 06/29/2014 [facility] Temperature Oral (F) 97.7 F 06/29/2014 [facility] Systolic (mm Hg) 109 06/29/2014 [facility] Heart Rate 80 06/29/2014 [facility] Diastolic (mm Hg) 69 06/29/2014 [facility] Temperature Oral (F) 98.1 F 06/29/2014 [facility] Weight 109.091 06/26/2014 [facility] BMI Calculated 43.99 06/26/2014 [facility] Height 157.48 cm 06/26/2014 [facility] BMI Calculated 42.78 06/26/2014 [facility] Weight 109.545 06/26/2014 [facility] Height 160.02 cm 06/26/2014 [facility] Encounters Location Location Details Encounter Type Encounter Number Reason For Visit Attending Provider ADM Date DC Date Status Source [facility] Inpatient [id number] Subhadra Bandhakavi 06/26/2014 06/29/2014 [facility] Outpatient [id number] Christy Red 05/13/2016 05/14/2016 [facility] Inpatient [id number] Subhadra Bandhakavi 06/06/2016 06/09/2016 [facility] Observation [id number] Subhadra Bandhakavi 11/15/2017 11/16/2017 [facility] Procedures Procedure Code Date Perfomer Comments Source Hysterectomy [id number] [facility] Arm repair<sup>1</sup> [id number] Muscle surgery in left arm due to numbness in fingers on left hand [facility] Cardiac pacemaker procedure [id number] [facility] Cholecystectomy [id number] [facility]
--- OUTSIDE RECORDS SUMMARY | 2018-08-27 11:01 | XMS REPORT | Summary of Care ---
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, or unspecified chronic kidney disease (Final) - Chronic systolic (congestive) heart failure (Final) - Chronic kidney disease, stage 3 (moderate) (Final) - Type 2 diabetes mellitus with diabetic chronic kidney disease (Final) - Dilated cardiomyopathy (Final) - Umbilical hernia without obstruction or gangrene (Final) - Obstructive sleep apnea (adult) (pediatric) (Final) - Pure hypercholesterolemia, unspecified (Final) - Spondylosis without myelopathy or radiculopathy, lumbar region (Final) - Unspecified osteoarthritis, unspecified site (Final) - Morbid (severe) obesity due to excess calories (Final) - Presence of automatic (implantable) cardiac defibrillator (Final) - FPC (current) use of insulin (Final) - Discharge Disposition: Home or Self Care Attending Physician: Ava Hall MD Admitting Physician: Ava Hall MD Vital Signs 1 2 3 Most recent to oldest [Reference Range]: 160.02 cm (11/14/17 2:27 PM) Height 97.7 DegF (11/16/17 11:07 AM) 98.4 DegF (11/16/17 6:12 AM) 97.9 DegF (11/16/17 3:31 AM) Temperature Oral [96.4-99.1 DegF] 108/75 mmHg (11/16/17 11:07 AM) 105/61 mmHg (11/16/17 6:12 AM) 114/82 mmHg (11/16/17 3:31 AM) Blood Pressure [90-140/60-90 mmHg] 16 BRMIN (11/16/17 11:07 AM) 16 BRMIN (11/16/17 7:31 AM) 18 BRMIN (11/16/17 6:12 AM) Respiratory Rate [14-20 BRMIN] 65 bpm (11/16/17 11:07 AM) 70 bpm (11/16/17 6:12 AM) 69 bpm (11/16/17 3:31 AM) Peripheral Pulse Rate [60-100 bpm] 89.091 kg (11/14/17 2:27 PM) Weight 34.79 m2 (11/14/17 2:27 PM) Body Mass Index Problem List Condition Effective Dates Status Health Status Informant Arthritis(Confirmed) Resolved Congestive heart Resolved disease(Confirmed) Diabetes(Confirmed) Resolved DM (diabetes Active mellitus), type 2(Confirmed) Hypertension(Confirm Active ed) UTI (lower urinary Resolved tract infection)(Confirmed ) Allergies, Adverse Reactions, Alerts Substance Reaction Severity Status codeine Active Vicodin1 Active traMADol Active 1Hydrocodone makes pt feel like she is on "cloud 9", like she is on drugs; pt does not want to take Medications acetaminophen 325 mg, 1 tab, Route: PO, Drug form: TAB, Q4H, Dosing Weight 100.256, kg, PRN Pa in Score 4-6, Start date: 11/14/17 12:03:00 CDT, Duration: 30 day, Stop date: 12:02:00 CDT Notes: Do not exceed 4 gm/day. (Same as: Tylenol) Start Date: 11/14/17 Stop Date: 11/16/17 Status: Discontinued acetylcysteine oral solution (mg) 600 mg, 3 mL, Route: PO, Drug form: SOLN, BID, Dosing Weight 100.256, kg, Start date: 11/14/17 17:00:00 CDT, Duration: 2 day, Stop date: 11/16/17 9:00:00 CDT Notes: for oral use only Start Date: 11/14/17 Stop Date: 11/16/17 Status: Completed albuterol-ipratropium 2.5-0.5 mg inhalation solution 3 mL, Route: INHALATION, Drug Form: SOLN, Dosing Weight 89.091, kg, BID, PRN as needed for shortness of breath or wheezing, Start date: 11/14/17 14:54:00 CDT, D uration: 30 day, Stop date: 12/14/17 14:53:00 CDT Notes: (Same as: Duoneb) Start Date: 11/14/17 Stop Date: 11/16/17 Status: Discontinued AMIODarone 200 mg, 1 tab, Route: PO, Drug form: TAB, Daily, Dosing Weight 89.091, kg, Start date: 11/15/17 9:00:00 CDT, Duration: 30 day, Stop date: 12/14/17 9:00:00 CDT Notes: (Same as: Cordarone) Start Date: 11/15/17 Stop Date: 11/16/17 Status: Discontinued Coreg 3.125 mg, 1 tab, Route: PO, Drug form: TAB, Daily, Dosing Weight 89.091, kg, Sta rt date: 11/15/17 9:00:00 CDT, Duration: 30 day, Stop date: 12/14/17 9:00:00 CDT Notes: Give with food. (Same As: Coreg) Start Date: 11/15/17 Stop Date: 11/16/17 Status: Discontinued Dextrose 50% Syringe 12.5 gm, 25 mL, Route: IVP, Drug Form: INJ, Dosing Weight 89.091, kg, PRN, PRN B lood Glucose Results, Start date: 11/14/17 14:56:00 CDT, Duration: 30 day, Stop date: 12/14/17 14:55:00 CDT Start Date: 11/14/17 Stop Date: 11/16/17 Status: Discontinued Dextrose 50% Syringe 25 gm, 50 mL, Route: IVP, Drug Form: INJ, Dosing Weight 89.091, kg, PRN, PRN Blo od Glucose Results, Start date: 11/14/17 14:56:00 CDT, Duration: 30 day, Stop da te: 12/14/17 14:55:00 CDT Start Date: 11/14/17 Stop Date: 11/16/17 Status: Discontinued dicyclomine 20 mg, 1 tab, Route: PO, Drug form: TAB, Q6H, Dosing Weight 89.091, kg, Start da te: 11/14/17 18:00:00 CDT, Duration: 30 day, Stop date: 12/14/17 12:00:00 CDT Notes: (Same as: Bentyl) Start Date: 11/14/17 Stop Date: 11/16/17 Status: Discontinued digoxin 125 mcg (0.125 mg) oral tablet 0.125 mg, 1 tab, Route: PO, Drug form: TAB, Daily, Dosing Weight 89.091, kg, Sta rt date: 11/15/17 9:00:00 CDT, Duration: 30 day, Stop date: 12/14/17 9:00:00 CDT Notes: Take on an Empty Stomach (Same as: Lanoxin) Start Date: 11/15/17 Stop Date: 11/16/17 Status: Discontinued Ditropan 5 mg, 1 tab, Route: PO, Drug form: TAB, BID, Start date: 11/15/17 9:00:00 CDT, D uration: 30 day, Stop date: 12/14/17 17:00:00 CDT Notes: Same as: Ditropan) Start Date: 11/15/17 Stop Date: 11/16/17 Status: Discontinued docusate 100 mg, 1 cap, Route: PO, Drug form: CAP, BID, Dosing Weight 100.256, kg, Start date: 11/14/17 17:00:00 CDT, Duration: 30 day, Stop date: 12/14/17 9:00:00 CDT Notes: (Same as: Colace) (Do Not Crush) Start Date: 11/14/17 Stop Date: 11/16/17 Status: Discontinued gabapentin 300 mg oral capsule 300 mg, 1 cap, Route: PO, Drug form: CAP, Q8H, Dosing Weight 89.091, kg, Start d ate: 11/14/17 16:00:00 CDT, Duration: 30 day, Stop date: 12/14/17 8:00:00 CDT Notes: (Same as: Neurontin) Start Date: 11/14/17 Stop Date: 11/16/17 Status: Discontinued glucagon 1 mg, Route: IM, Drug form: PDR/INJ, PRN, Dosing Weight 89.091, kg, PRN Blood Gl ucose Results, Start date: 11/14/17 14:56:00 CDT, Duration: 30 day, Stop date: 0 12/14/17 14:55:00 CDT Start Date: 11/14/17 Stop Date: 11/16/17 Status: Discontinued Humalog 7 unit, 0.07 mL, Route: SUB-Q, Drug form: SOLN, TID-Before Meals, Start date: 16:30:00 CDT, Duration: 30 day, Stop date: 12/14/17 11:30:00 CDT Notes: (Same as: Humalog ) Roll in palms of hands gently; Do not shake `vigorou sly. "Single Patient Use Only " WASTE: F/P - Black; E - [facility] [address] [address] able for 28 days at room temperature.Expires in days from Da te Start Date: 11/14/17 Stop Date: 11/16/17 Status: Discontinued insulin aspart 7 unit, Route: SUB-Q, TID-Before Meals, Dosing Weight 89.091, kg, Start date: 16:30:00 CDT, Duration: 30 day, Stop date: 12/14/17 11:30:00 CDT Start Date: 11/14/17 Stop Date: 11/14/17 Status: Deleted insulin aspart 7 unit, SUB-Q, TID-Before Meals, 0 Refill(s) Start Date: 11/14/17 Status: Ordered insulin glargine 30 unit, 0.3 mL, Route: SUB-Q, Drug form: SOLN, Bedtime, Start date: 11/15/17 21 :00:00 CDT, Duration: 30 day, Stop date: 12/14/17 21:00:00 CDT Notes: (Same as: Lantus)Do not hold insulin without contacting prescriberWASTE: F/P - Black; E - [facility] Trash Bin "single patient use only" Start Date: 11/15/17 Stop Date: 11/16/17 Status: Discontinued insulin lispro 5 unit, 0.05 mL, Route: SUB-Q, Drug form: SOLN, TID-Before Meals, Dosing Weight 89.091, kg, PRN Blood Glucose Results, Start date: 11/14/17 14:56:00 CDT, Durati on: 30 day, Stop date: 12/14/17 14:55:00 CDT Notes: (Same as: Humalog ) Roll in palms of hands gently; Do not shake `vigorou sly. "Single Patient Use Only " WASTE: F/P - Black; E - [facility] [address] [address] able for 28 days at room temperature.Expires in days from Da te Start Date: 11/14/17 Stop Date: 11/16/17 Status: Discontinued insulin lispro 1 unit, 0.01 mL, Route: SUB-Q, Drug form: SOLN, TID-Before Meals, Dosing Weight 89.091, kg, PRN Blood Glucose Results, Start date: 11/14/17 14:56:00 CDT, Durati on: 30 day, Stop date: 12/14/17 14:55:00 CDT Notes: (Same as: Humalog ) Roll in palms of hands gently; Do not shake `vigorou sly. "Single Patient Use Only " WASTE: F/P - Black; E - [facility] [address] [address] able for 28 days at room temperature.Expires in days from Da te Start Date: 11/14/17 Stop Date: 11/16/17 Status: Discontinued insulin lispro 2 unit, 0.02 mL, Route: SUB-Q, Drug form: SOLN, TID-Before Meals, Dosing Weight 89.091, kg, PRN Blood Glucose Results, Start date: 11/14/17 14:56:00 CDT, Durati on: 30 day, Stop date: 12/14/17 14:55:00 CDT Notes: (Same as: Humalog ) Roll in palms of hands gently; Do not shake `vigorou sly. "Single Patient Use Only " WASTE: F/P - Black; E - [facility] [address] able for 28 days at room temperature.Expires in days from Da te Start Date: 11/14/17 Stop Date: 11/16/17 Status: Discontinued insulin lispro 3 unit, 0.03 mL, Route: SUB-Q, Drug form: SOLN, TID-Before Meals, Dosing Weight 89.091, kg, PRN Blood Glucose Results, Start date: 11/14/17 14:56:00 CDT, Durati on: 30 day, Stop date: 12/14/17 14:55:00 CDT Notes: (Same as: Humalog ) Roll in palms of hands gently; Do not shake `vigorou sly. "Single Patient Use Only " WASTE: F/P - Black; E - [facility] [address] able for 28 days at room temperature.Expires in days from Da te Start Date: 11/14/17 Stop Date: 11/16/17 Status: Discontinued insulin lispro 4 unit, 0.04 mL, Route: SUB-Q, Drug form: SOLN, TID-Before Meals, Dosing Weight 89.091, kg, PRN Blood Glucose Results, Start date: 11/14/17 14:56:00 CDT, Durati on: 30 day, Stop date: 12/14/17 14:55:00 CDT Notes: (Same as: Humalog ) Roll in palms of hands gently; Do not shake `vigorou sly. "Single Patient Use Only " WASTE: F/P - Black; E - [facility] [address] able for 28 days at room temperature.Expires in days from Da te Start Date: 11/14/17 Stop Date: 11/16/17 Status: Discontinued Levemir 30 unit, Route: SUB-Q, Bedtime, Dosing Weight 89.091, kg, Start date: 11/15/17 2 1:00:00 CDT, Duration: 30 day, Stop date: 12/14/17 21:00:00 CDT Start Date: 11/15/17 Stop Date: 11/14/17 Status: Deleted losartan 25 mg, 1 tab, Route: PO, Drug form: TAB, Daily, Dosing Weight 89.091, kg, Start date: 11/15/17 9:00:00 CDT, Duration: 30 day, Stop date: 12/14/17 9:00:00 CDT Notes: (Same as: Jonathan) Start Date: 11/15/17 Stop Date: 11/15/17 Status: Discontinued montelukast 10 mg, 1 tab, Route: PO, Drug form: TAB, Bedtime, Dosing Weight 89.091, kg, Star t date: 11/14/17 21:00:00 CDT, Duration: 30 day, Stop date: 12/13/17 21:00:00 CD T Notes: (Same as:Adam) Start Date: 11/14/17 Stop Date: 11/16/17 Status: Discontinued Nitrostat 0.4 mg sublingual tablet 0.4 mg, 1 tab, Route: SL, Drug form: TAB, Q5Min, Dosing Weight 89.091, kg, PRN C hest Pain, Start date: 11/14/17 14:54:00 CDT, Duration: 3 doses or times, Stop d ate: Limited # of times Notes: (Same as:Nitroquick, Nitrostat)"Do Not Crush" Sublingual tablet Start Date: 11/14/17 Stop Date: 11/16/17 Status: Discontinued normal saline 0.9% IV 500 mL 500 mL, Rate: 50 ml/hr, Infuse over: 10 hr, Route: IV, Dosing Weight 89.091 kg, Total Volume: 500, Start date: 11/14/17 19:49:00 CDT, Stop date: 12/14/17 20:00: 00 CDT, 2.02, m2 Start Date: 11/14/17 Stop Date: 11/16/17 Status: Discontinued ondansetron 4 mg, 2 mL, Route: IVP, Drug form: INJ, Q6H, Dosing Weight 100.256, kg, PRN Naus ea & Vomiting, Start date: 11/14/17 12:03:00 CDT, Duration: 30 day, Stop date: 12/14/17 12:02:00 CDT Notes: (Same as: Mika) MEDICATION WASTE Product Size: 4 mgProduct Was jaspal: ___ mg Start Date: 11/14/17 Stop Date: 11/16/17 Status: Discontinued pantoprazole 40 mg, 1 tab, Route: PO, Drug form: ECTAB, BID-Before Meals, Dosing Weight 89.09 1, kg, Start date: 11/14/17 16:30:00 CDT, Duration: 30 day, Stop date: 12/14/17 7:30:00 CDT Notes: Tablet should not be chewed or crushed.(Same as: Protonix) Start Date: 11/14/17 Stop Date: 11/16/17 Status: Discontinued Pls bring home med Toviaz and Tradjenta to pharmacy for labe Pls bring home med Toviaz and Tradjenta to pharmacy for labe, Galindo RN, Drug form : MISC, Route: MISC, Continuous, 11/14/17 15:30:00 CDT, Duration: 30 day, Stop d ate: 12/14/17 15:29:00 CDT Start Date: 11/14/17 Stop Date: 11/14/17 Status: Deleted pneumococcal 13-valent vaccine 0.5 mL, Route: IM, Drug Form: INJ, Daily, Start date: 11/15/17 9:00:00 CDT, Dura tion: 1 doses or times, Stop date: 11/15/17 9:00:00 CDT Notes: Shake well prior to use (Same as: Prevnar 13) Start Date: 11/15/17 Stop Date: 11/15/17 Status: Completed simvastatin 10 mg, 1 tab, Route: PO, Drug form: TAB, Bedtime, Dosing Weight 89.091, kg, Star t date: 11/14/17 21:00:00 CDT, Duration: 30 day, Stop date: 12/13/17 21:00:00 CD T Notes: (Same as: Zocor) Start Date: 11/14/17 Stop Date: 11/16/17 Status: Discontinued Toviaz 8 mg, Route: PO, Drug form: ERTAB, Daily, Dosing Weight 89.091, kg, Start date: 11/15/17 9:00:00 CDT, Duration: 30 day, Stop date: 12/14/17 9:00:00 CDT Start Date: 11/15/17 Stop Date: 11/14/17 Status: Deleted Tradjenta 5 mg, Route: PO, Drug form: TAB, Daily, Dosing Weight 89.091, kg, Start date: 9:00:00 CDT Start Date: 11/15/17 Stop Date: 11/16/17 Status: Discontinued Tradjenta 5mg Tablet Tradjenta 5mg Tablet, 1 tab, Drug form: MISC, Route: PO, Daily, 11/15/17 9:00:00 CDT, Duration: 30 day, Stop date: 12/14/17 9:00:00 CDT Start Date: 11/15/17 Stop Date: 11/16/17 Status: Discontinued Results ELECTROLYTES 1 2 3 Most recent to oldest [Reference Range]: 141 mEq/L (11/16/17 3:34 AM) 140 mEq/L (11/15/17 4:23 AM) 139 mEq/L (11/14/17 2:30 PM) Sodium Lvl [135-145 mEq/L] 4.0 mEq/L (11/16/17 3:34 AM) 3.5 mEq/L (11/15/17 4:23 AM) 3.6 mEq/L (11/14/17 2:30 PM) Potassium Lvl [3.5-5.1 mEq/L] 106 mEq/L (11/16/17 3:34 AM) 104 mEq/L (11/15/17 4:23 AM) 102 mEq/L (11/14/17 2:30 PM) Chloride Lvl [95-109 mEq/L] 25 mEq/L (11/16/17 3:34 AM) 27 mEq/L (11/15/17 4:23 AM) 28 mEq/L (11/14/17 2:30 PM) CO2 [24-32 mEq/L] 14.0 mEq/L (11/16/17 3:34 AM) 12.5 mEq/L (11/15/17 4:23 AM) 12.6 mEq/L (11/14/17 2:30 PM) AGAP [10.0-20.0 mEq/L] CHEM PANEL 1 2 3 Most recent to oldest [Reference Range]: 0.97 mg/dL (11/16/17 3:34 AM) 1.06 mg/dL (11/15/17 4:23 AM) 1.29 mg/dL (11/14/17 2:30 PM) Creatinine Lvl [0.50-1.40 mg/dL] 65 mL/min/1.73m2 1 *NA* (11/16/17 3:34 AM) 59 mL/min/1.73m2 2 *NA* (11/15/17 4:23 AM) 46 mL/min/1.73m2 3 *NA* (11/14/17 2:30 PM) eGFR 17 mg/dL (11/16/17 3:34 AM) 24 mg/dL *HI* (11/15/17 4:23 AM) 23 mg/dL *HI* (11/14/17 2:30 PM) BUN [7-22 mg/dL] 18 (11/14/17 2:30 PM) B/C Ratio [6-25] 183 mg/dL *HI* (11/16/17 3:34 AM) 207 mg/dL *HI* (11/15/17 4:23 AM) 141 mg/dL *HI* (11/14/17 2:30 PM) Glucose Lvl [70-99 mg/dL] 7.5 g/dL (11/14/17 2:30 PM) Total Protein [6.4-8.4 g/dL] 3.5 g/dL (11/14/17 2:30 PM) Albumin Lvl [3.5-5.0 g/dL] 4.0 g/dL (11/14/17 2:30 PM) Globulin [2.7-4.2 g/dL] 0.9 (11/14/17 2:30 PM) A/G Ratio [0.7-1.6] 8.7 mg/dL (11/16/17 3:34 AM) 8.9 mg/dL (11/15/17 4:23 AM) 9.1 mg/dL (11/14/17 2:30 PM) Calcium Lvl [8.5-10.5 mg/dL] 18 unit/L (11/14/17 2:30 PM) ALT [0-65 unit/L] 20 unit/L (11/14/17 2:30 PM) AST [0-37 unit/L] 76 unit/L (11/14/17 2:30 PM) Alk Phos [39-136 unit/L] 0.5 mg/dL (11/14/17 2:30 PM) Bili Total [0.2-1.3 mg/dL] 1Result Comment: The eGFR is calculated using [...] from the National Kid[employer] Disease Education Program ( NKDEP) which additionally recommends that when the eGFR is used in patients with extremes of body mass index for purposes of drug dosing, the eGFR should be mul tiplied by the estimated BMI. 2Result Comment: The eGFR is calculated using [...] from the National Kid[employer] Disease Education Program ( NKDEP) which additionally recommends that when the eGFR is used in patients with extremes of body mass index for purposes of drug dosing, the eGFR should be mul tiplied by the estimated BMI. 3Result Comment: The eGFR is calculated using the [...] from the National Kid[employer] Disease Education Program ( NKDEP) which additionally recommends that when the eGFR is used in patients with extremes of body mass index for purposes of drug dosing, the eGFR should be mul tiplied by the estimated BMI. URINE AND STOOL 1 2 3 Most recent to oldest [Reference Range]: Clear (11/15/17 1:35 PM) UA Turbidity [Clear] Yellow *NA* (11/15/17 1:35 PM) UA Color [Yellow] 6.0 (11/15/17 1:35 PM) UA pH [5.0-8.0] 1.017 (11/15/17 1:35 PM) UA Spec Grav [<=1.030] Negative mg/dL *NA* (11/15/17 1:35 PM) UA Glucose [Negative mg/dL] Negative (11/15/17 1:35 PM) UA Blood [Negative] Negative mg/dL *NA* (11/15/17 1:35 PM) UA Ketones [Negative mg/dL] Negative mg/dL (11/15/17 1:35 PM) UA Protein [Negative mg/dL] 4.0 mg/dL *HI* (11/15/17 1:35 PM) UA Urobilinogen [0.1-1.0 mg/dL] Negative *NA* (11/15/17 1:35 PM) UA Bili [Negative] Negative (11/15/17 1:35 PM) UA Leuk Est [Negative] Negative (11/15/17 1:35 PM) UA Nitrite [Negative] 1 /HPF (11/15/17 1:35 PM) UA WBC [0-5 /HPF] <1 /HPF (11/15/17 1:35 PM) UA RBC [0-2 /HPF] Occasional /HPF *NA* (11/15/17 1:35 PM) UA Bacteria [None Seen /HPF] Occasional /LPF *NA* (11/15/17 1:35 PM) UA Sq Epi [Few /LPF] HEMATOLOGY 1 2 3 Most recent to oldest [Reference Range]: 6.2 K/CMM (11/16/17 3:34 AM) 8.0 K/CMM (11/14/17 2:30 PM) WBC [3.7-10.4 K/CMM] 4.38 M/CMM (11/16/17 3:34 AM) 4.87 M/CMM (11/14/17 2:30 PM) RBC [4.20-5.40 M/CMM] 12.2 g/dL (11/16/17 3:34 AM) 13.8 g/dL (11/14/17 2:30 PM) Hgb [12.0-16.0 g/dL] 36.8 % (11/16/17 3:34 AM) 41.6 % (11/14/17 2:30 PM) Hct [36.0-48.0 %] 84.0 fL (11/16/17 3:34 AM) 85.5 fL (11/14/17 2:30 PM) MCV [80.0-98.0 fL] 27.9 pg (11/16/17 3:34 AM) 28.4 pg (11/14/17 2:30 PM) MCH [27.0-31.0 pg] 33.2 g/dL (11/16/17 3:34 AM) 33.2 g/dL (11/14/17 2:30 PM) MCHC [32.0-36.0 g/dL] 13.4 % (11/16/17 3:34 AM) 13.7 % (11/14/17 2:30 PM) RDW [11.5-14.5 %] 10.3 fL (11/16/17 3:34 AM) 10.3 fL (11/14/17 2:30 PM) MPV [7.4-10.4 fL] 108 K/CMM *LOW* (11/16/17 3:34 AM) 137 K/CMM (11/14/17 2:30 PM) Platelet [133-450 K/CMM] 63.8 % (11/16/17 3:34 AM) 58.4 % (11/14/17 2:30 PM) Segs [45.0-75.0 %] 25.8 % (11/16/17 3:34 AM) 31.8 % (11/14/17 2:30 PM) Lymphocytes [20.0-40.0 %] 8.1 % (11/16/17 3:34 AM) 7.9 % (11/14/17 2:30 PM) Monocytes [2.0-12.0 %] 1.6 % (11/16/17 3:34 AM) 0.8 % (11/14/17 2:30 PM) Eosinophils [0.0-4.0 %] 0.7 % (11/16/17 3:34 AM) 1.1 % *HI* (11/14/17 2:30 PM) Basophils [0.0-1.0 %] 4.0 K/CMM (11/16/17 3:34 AM) 4.7 K/CMM (11/14/17 2:30 PM) Segs-Bands # [1.5-8.1 K/CMM] 1.6 K/CMM (11/16/17 3:34 AM) 2.6 K/CMM (11/14/17 2:30 PM) Lymphocytes # [1.0-5.5 K/CMM] 0.5 K/CMM (11/16/17 3:34 AM) 0.6 K/CMM (11/14/17 2:30 PM) Monocytes # [0.0-0.8 K/CMM] 0.1 K/CMM (11/16/17 3:34 AM) 0.1 K/CMM (11/14/17 2:30 PM) Eosinophils # [0.0-0.5 K/CMM] 0.1 K/CMM (11/14/17 2:30 PM) Basophils # [0.0-0.2 K/CMM] Immunizations Given and Recorded Vaccine Date Status Refusal Reason pneumococcal 13-valent vaccine 11/15/17 Given Procedures Procedure Date Related Diagnosis Body Site Status Arm repair1 Completed Cardiac pacemaker procedure Completed Cholecystectomy Completed Hysterectomy Completed 1Muscle surgery in left arm due to numbness in fingers on left hand Social History Social History Type Response Substance Abuse Use: None. Alcohol Never Smoking Status Never smoker; Previous treatment: None; Exposure to Tobacco Smoke None; Cigarette Smoking Last 365 Days No; Reg Smoking Cessation Counseling No entered on: 11/14/17 Assessment and Plan Extracted from: Title: Clinical Document Author: Ava Hall MD Date: 11/16/17 [id number] Extracted from: Title: Clinical Document Author: El Munoz MD Date: 11/15/17 Progress Note Gastroenterology and Hepatology ASSESSMENT /PLAN: 77-year-old female with extensive past medical history of cardiomyopathy, ejection fraction around 20%, status post AICD pacemaker placement, obesity, hypertension, diabetes, degenerative joint disease, hyperlipidemia, among other medical problems who was admitted with postprandial abdominal pain going on for several months. She has underlying constipation adequately controlled with Linzess. Her pain could be due to mesenteric edema due to cardiomyopathy versus chronic mesenteric ischemia. She is on daily PPI for previous history of peptic ulcer disease. CT angio abdomen/plevis with no significant mesenteric vascular disease; constipation noted. RECOMMEND: 1. Continue Linzess for constipation. 2. Abdominal pain likely due to mesenteric/gut edema due to systolic CHF and constipation. Will consider neuromodulation as outpt. 3. We will monitor her for post-contrast nephropathy. SUBJECTIVE: Pt still has mild abdominal pain. CTA reviewed. Review of Systems: (-)=Negative,(+)=Positive 1) Const: (-) fever, (-) weight change 2) Skin: (-) rash, (-) bleeding 3) HEENT: (-) difficulty swallowing, (-) swelling 4) Eyes: (-) vision changes, (-) bleeding 5) Neuro: (-) weakness, (-) headaches 6) Resp: (-) dyspnea on exertion, (-) cough 7) Cardio: (-) chest pain, (-) orthopnea 8) GI: (-) blood in stool, (-) reflux 9) : (-) dysuria, (-) bloody discharge 10) Endo: (-) heat intolerance, (-) cold intolerance OBJECTIVE: Vitals: See below General: Alert , Oriented x 3 CVS: s1s2 RRR Resp: CTA Bilaterally Abd : Soft, NT, ND , BS + Ext : no edema EXECUTIVE PILOT: No gross motor/sensory defects VitalsTmp(F)[id number] 11/15 16:46----69 11/15 15:0897.887010/77--99--- 11/15 11:1297.361766/71--98--- 11/15 07:51 1696--- 11/15 07:1898.120686/74--99--- 24 Hr Tmax: 98.6F (37.00c) at 11/15 03:46Vital Signs are the last 5 in the past 48 hours. Lines, Tubes, and Drains: 11/15/2017 05:30 Peripheral Lines: Wrist Right 22 gauge Over the needle catheter Hysterectomy Cardiac pacemaker procedure Cholecystectomy Arm repair I&ORecordInOutBal 11/323hr Tot 3 0 3 11/223hr Tot 634 0 634 Medications (28) Active Scheduled: (15) acetylcysteine 20% 4 ml SOLN 600 mg 3 mL, PO, BID AMIODarone 200 mg TAB 200 mg 1 tab, PO, Daily carvedilol 3.125 mg TAB 3.125 mg 1 tab, PO, Daily dicyclomine 20 mg TAB 20 mg 1 tab, PO, Q6H digoxin 0.125 mg TAB 0.125 mg 1 tab, PO, Daily docusate sodium 100 mg CAP 100 mg 1 cap, PO, BID gabapentin 300 mg CAP 300 mg 1 cap, PO, Q8H insulin GLARGINE 1 unit/0.01 mL INJ SYR 30 unit 0.3 mL, SUB-Q, Bedtime insulin lispro 100 unit/ml 3 ml Vial 7 unit 0.07 mL, SUB-Q, TID-Before Meals linagliptin 5 mg, PO, Daily montelukast 10 mg TAB 10 mg 1 tab, PO, Bedtime oxybutynin 5 mg TAB 5 mg 1 tab, PO, BID pantoprazole 40 mg ECT 40 mg 1 tab, PO, BID-Before Meals simvastatin 10 mg TAB 10 mg 1 tab, PO, Bedtime Tradjenta 5mg Tablet 1 tab, PO, Daily Continuous: (1) sodium chloride 0.9% 500 ml INJ 500 mL 500 mL, IV, 50 ml/hr PRN: (12) acetaminophen 325 mg TABLET 325 mg 1 tab, PO, Q4H albuterol-ipratropium 2.5 mg-0.5 mg/3 ml YANA 3 mL, INHALATION, BID Dextrose 50% 50 ml INJ syringe 12.5 gm 25 mL, IVP, PRN Dextrose 50% 50 ml INJ syringe 25 gm 50 mL, IVP, PRN glucagon recombinant 1 mg PDR 1 mg, IM, PRN insulin lispro 100 unit/ml 3 ml Vial 1 unit 0.01 mL, SUB-Q, TID-Before Meals insulin lispro 100 unit/ml 3 ml Vial 2 unit 0.02 mL, SUB-Q, TID-Before Meals insulin lispro 100 unit/ml 3 ml Vial 3 unit 0.03 mL, SUB-Q, TID-Before Meals insulin lispro 100 unit/ml 3 ml Vial 4 unit 0.04 mL, SUB-Q, TID-Before Meals insulin lispro 100 unit/ml 3 ml Vial 5 unit 0.05 mL, SUB-Q, TID-Before Meals nitroglycerin 0.4 mg TAB 25's btl 0.4 mg 1 tab, SL, Q5Min ondansetron 4 mg/2ml INJ VL 4 mg 2 mL, IVP, Q6H Labs (Last four charted values) WBC 8.0(NOV 14) Hgb 13.8(NOV 14) Hct 41.6(NOV 14) Plt 137(NOV 14) Na 140(NOV 15)139(NOV 14) K 3.5(NOV 15)3.6(NOV 14) CO2 27(NOV 15)28(NOV 14) Cl 104(NOV 15)102(NOV 14) Cr 1.06(NOV 15)1.29(NOV 14) BUN H 24(NOV 15)H 23(NOV 14) Glucose Random H 207(NOV 15)H 141(NOV 14) Ca 8.9(NOV 15)9.1(NOV 14) Extracted from: Title: Clinical Document Author: Ava Hall MD Date: 11/14/17 [id number]
--- OUTSIDE RECORDS SUMMARY | 2018-08-27 11:01 | XMS REPORT ---
[facility] Address Unknown Phone Unavailable Care Team Providers Care Glass Curvature Gauger Name Role Phone [place] DIA Unavailable Unavailable Problems This patient has no known problems. Allergies, Adverse Reactions, Alerts This patient has no known allergies or adverse reactions. Medications This patient has no known medications. Results Test Description Test Time Test Comments Text Results Atomic Results Result Comments CHEST SINGLE (PORTABLE) 2018-02-18 18:35:00 [place] [address] Patient Name: GIDEON MORENO MR #: [id number] : 1940 Age/Sex: 77/F Req #: [id number] Adm Physician: Ordered by: SAPNA DIA MD Report #: [id number] Location: ER Room/Bed: Procedure: [id number] DX/CHEST SINGLE (PORTABLE) Exam Date: 02/18/18 Exam Time: 1825 REPORT STATUS: Signed Chest, one view. History: Chest pain. Comparison: 12/28/2013. Findings: There is a tri-lead left chest cardiac device in place. The heart is mildly enlarged, unchanged.. There is a small right pleural effusion. Mild prominence of the central pulmonary vasculature. Perihilar peribronchial thickening. There is no consolidated pneumonia or pneumothorax. There are degenerative changes about the visualized osseous structures.. Impression: Mild pulmonary venous congestion. Signed by: Dr. Narendra Lorenz M.D. on 02/18/2018 6:37 PM Dictated By: JULIO C LORENZ MD, MD 36 Transcribed By: CONCEPCIÓN on 02/18/181836 COPY TO: SAPNA DIA MD
[2018-08-27] MEDS ORDERED: ASPIRIN 81 MG CHEW TAB PO ONE (12:00)
[2018-08-27 12:58] LABS: BASOPHILS # (AUTO) 0.1 (0.0-0.1); BASOPHILS % 0.6 % (0.0-1.0); EOSINOPHILS % 0.3 % (0.0-6.0); HEMATOCRIT 45.4 % (34.2-44.1); HEMOGLOBIN 14.6 g/dL (12.0-16.0); LYMPHOCYTES # (AUTO) 2.1 (1.0-3.2); LYMPHOCYTES % 17.7 % (18.0-39.1); MEAN CORPUSCULAR HEMOGLOBIN 27.7 pg (28-32); MEAN CORPUSCULAR HGB CONC 32.2 g/dL (31-35); MONOCYTES # (AUTO) 0.7 (0.2-0.8); MONOCYTES % 5.8 % (4.4-11.3); NEUTROPHILS # (AUTO) 9.1 (2.1-6.9); NEUTROPHILS % 75.4 % (38.7-80.0); PLATELET COUNT 122 x10e3/uL (140-360); RED BLOOD COUNT 5.28 x10e6/uL (3.6-5.1); RED CELL DISTRIBUTION WIDTH 13.5 % (11.7-14.4)
[2018-08-27 13:16] LABS: CLARITY,URINE CLEAR (CLEAR); COLOR,URINE YELLOW (YELLOW)
[2018-08-27 13:17] LABS: BILIRUBIN,URINE NEGATIVE (NEGATIVE); KETONES,URINE NEGATIVE (NEGATIVE); LEUKOCYTE ESTERASE ,URINE NEGATIVE (NEGATIVE); NITRITE,URINE NEGATIVE (NEGATIVE); PROTEIN,URINE DIPSTICK NEGATIVE (NEGATIVE); URINE UROBILINOGEN 1 mg/dL (0.2 - 1)
[2018-08-27 13:21] LABS: EPITHELIAL CELLS,URINE FEW /LPF; WBC,URINE (MAN) 0-5 /HPF (0-5)
[2018-08-27 13:26] LABS: ALANINE AMINOTRANSFERASE 20 IU/L (0-55); ALBUMIN 3.8 g/dL (3.5-5.0); ALBUMIN/GLOBULIN RATIO 1.1 (0.8-2.0); ALKALINE PHOSPHATASE 69 IU/L (40-150); ANION GAP 18.5 mmol/L (8-16); BLOOD UREA NITROGEN 25 mg/dL (7-26); BUN/CREATININE RATIO 25 (6-25); CALCIUM 9.5 mg/dL (8.4-10.2); CARBON DIOXIDE 23 mmol/L (22-29); CHLORIDE 102 mmol/L (98-107); CREATINE KINASE 49 IU/L (29-168); EST GLOMERULAR FILTRATION RATE > 60 ML/MIN (60-); GLUCOSE 114 mg/dL (74-118); MAGNESIUM 2.5 MG/DL (1.3-2.1); POTASSIUM 4.5 mmol/L (3.5-5.1); SODIUM 139 mmol/L (136-145)
--- NOTE | 2018-08-27 14:12 | Diagnostic Imaging Report ---
Examination: Single AP view of the chest. COMPARISON: Portable chest 02/18/2018 INDICATION: AICD dysfunction IMPRESSION: 1. Lines and Tubes: Stable multilead left upper chest cardiac device. 2. Lungs are well inflated. Stable mild perihilar peribronchial thickening. Stable small right pleural effusion. No consolidation. 3. Stable mild enlargement of cardiac silhouette. Pulmonary vasculature is normal. 4. No acute bony abnormalities. Signed by: Dr. Renan Zamora M.D. on 08/27/2018 2:08 PM
--- NOTE | 2018-08-27 14:25 | NUR ---
PT'S INFO OBTAINED AND TRANSMITTED TO [facility]
[2018-08-27] MEDS ORDERED: DEXTROSE 50% SYRINGE 50 ML IV PRN (14:30)
[2018-08-27] MEDS ORDERED: ONDANSETRON HCL INJ 2 MG/ML VIAL IV PRN (14:30)
--- NOTE | 2018-08-27 14:52 | NUR ---
CALL TO [facility] TO CONFIRM DATA WAS REC'D. LOCAL REP TO BE CONTACTED. DR. CALDERA NOTIFIED
[2018-08-27] MEDS ORDERED: DICYCLOMINE HCL20 MG PO (15:15)
--- NOTE | 2018-08-27 16:35 | NUR ---
received pt via stretcher from ER, transferred into bed. no acute distress noted, Resp even and unlabored. denies pain. oriented to room and use of call light. daughter at bedside. call light placed within reach and instructed to call for assistance.
[2018-08-27 17:00] VITALS: BP 112/66
[2018-08-27] MEDS: CARVEDILOL 3.125 MG TAB PO SCH (17:55)
[2018-08-27] MEDS: INSULIN LISPRO 100 UNIT/1 ML 3ML VIAL SQ SCH ×2 (17:57→21:00)
[2018-08-27 18:08] VITALS: BP 112/66
[2018-08-27 18:16] VITALS: BP 112/66
[2018-08-27 21:00] VITALS: BP 109/59
[2018-08-27 21:38] LABS: CREATINE KINASE MB 1.3 ng/mL (0-5.0)
[2018-08-28] VITALS (7 sets, daily range): BP systolic 90–132; BP diastolic 53–71
[2018-08-28 05:20] LABS: BASOPHILS # (AUTO) 0.1 (0.0-0.1); BASOPHILS % 0.5 % (0.0-1.0); EOSINOPHILS # (AUTO) 0.1 (0.0-0.4); EOSINOPHILS % 0.8 % (0.0-6.0); HEMATOCRIT 39.4 % (34.2-44.1); HEMOGLOBIN 12.8 g/dL (12.0-16.0); LYMPHOCYTES # (AUTO) 2.3 (1.0-3.2); LYMPHOCYTES % 23.2 % (18.0-39.1); MEAN CORPUSCULAR HEMOGLOBIN 27.9 pg (28-32); MEAN CORPUSCULAR HGB CONC 32.5 g/dL (31-35); MEAN CORPUSCULAR VOLUME 85.8 fL (81-99); MONOCYTES # (AUTO) 0.7 (0.2-0.8); MONOCYTES % 7.2 % (4.4-11.3); NEUTROPHILS # (AUTO) 6.7 (2.1-6.9); NEUTROPHILS % 68.1 % (38.7-80.0); PLATELET COUNT 135 x10e3/uL (140-360); RED BLOOD COUNT 4.59 x10e6/uL (3.6-5.1); RED CELL DISTRIBUTION WIDTH 13.3 % (11.7-14.4)
[2018-08-28 05:48] LABS: ALANINE AMINOTRANSFERASE 16 IU/L (0-55); ALBUMIN 3.2 g/dL (3.5-5.0); ALBUMIN/GLOBULIN RATIO 1.1 (0.8-2.0); ALKALINE PHOSPHATASE 64 IU/L (40-150); ANION GAP 14.2 mmol/L (8-16); BLOOD UREA NITROGEN 24 mg/dL (7-26); BUN/CREATININE RATIO 26 (6-25); CALCIUM 9.3 mg/dL (8.4-10.2); CARBON DIOXIDE 25 mmol/L (22-29); CHLORIDE 105 mmol/L (98-107); CHOL/HDL RATIO 4.8 (3.0-3.6); CHOLESTEROL 190 MD/DL (0-199); CREATININE, SERUM 0.94 mg/dL (0.57-1.11); EST GLOMERULAR FILTRATION RATE > 60 ML/MIN (60-); GLUCOSE 119 mg/dL (74-118); HDL CHOLESTEROL 40 MG/DL (40-60); LDL CHOLESTEROL 128 MG/DL (60-130); MAGNESIUM 2.1 MG/DL (1.3-2.1); POTASSIUM 4.2 mmol/L (3.5-5.1); SODIUM 140 mmol/L (136-145); TRIGLYCERIDES 112 MG/DL (0-149)
[2018-08-28 06:33] LABS: CREATINE KINASE MB 0.9 ng/mL (0-5.0)
--- NOTE | 2018-08-28 07:24 | NUR ---
REPORT GIVEN TO ONCOMING NURSE,WALKING ROUNDS MADE.PT RESTING IN BED WITH NO S/S OF DISTRESS.
[2018-08-28] MEDS: INSULIN LISPRO 100 UNIT/1 ML 3ML VIAL SQ SCH ×4 (07:30→21:00)
--- NOTE | 2018-08-28 07:52 | Consultation ---
DATE OF CONSULTATION: CARDIOLOGY CONSULTATION CHIEF COMPLAINT: The patient's defibrillator fired. HISTORY OF PRESENT ILLNESS: The patient is a 77 year old with a known history of a dilated cardiomyopathy and ejection fraction of 20%. The patient's defibrillator fired at home, and she came to the emergency room. The patient is currently feeling fine with no chest pain and no shortness of breath. No syncope. No dizziness. No fever. No nausea. No vomiting. PAST MEDICAL HISTORY: Significant for: 1. Dilated cardiomyopathy. 2. Ejection fraction of 20%. 3. Previous implantable defibrillator placement. MEDICATIONS: At home include digoxin, carvedilol, lisinopril. SOCIAL HISTORY: The patient does not drink and does not smoke. FAMILY HISTORY: There is no known family history of coronary artery disease. PHYSICAL EXAMINATION GENERAL: The patient is a well-developed, well-nourished female in no obvious distress. VITAL SIGNS: Include a temperature of 98.8, blood pressure 110/60, pulse 74. HEENT: The patient's cranium was normocephalic and atraumatic. Extraocular muscles were intact. Sclerae is anicteric. NECK: Supple. There is no jugular venous distention and no carotid bruits. CHEST: Clear to auscultation and percussion. CARDIAC: Demonstrated normal S1 and S2 with a short 2/6 systolic murmur. ABDOMEN: Demonstrated good bowel sounds. No tenderness. No masses. EXTREMITIES: There is no clubbing. No cyanosis. No edema. NEUROLOGIC: The patient was alert and oriented times 3. Cranial nerves II-XII are intact. Motor strength was +5/+5 in all limbs. The patient's EKG demonstrated AV sequential pacing. IMPRESSION: The patient is a 77 year old with a dilated cardiomyopathy whose defibrillator fired. RECOMMENDATIONS: Are as follows: 1. The patient's defibrillator will need to be interrogated to see if it was an appropriate shock. 2. The patient will need to be continued on JOHN inhibitors and beta blockers. 3. The patient can be discharged after the defibrillator has been interrogated. Job#: [id number] MT
[2018-08-28] MEDS: CARVEDILOL 3.125 MG TAB PO SCH ×2 (08:22→17:05)
[2018-08-28] MEDS: LISINOPRIL 2.5 MG TAB PO SCH (08:22)
[2018-08-28] MEDS: AMIODARONE HCL 200 MG TAB PO SCH (08:22)
[2018-08-28] MEDS: DIGOXIN 0.125 MG TAB PO SCH (08:22)
--- NOTE | 2018-08-28 13:43 | NUR ---
pt lying in bed with eyes open and TV on. Resp even and unlabored. denies pain. pleasant mood, smiling and conversates with staff. call light within reach, instructed to call for assistance.
[2018-08-29 01:41] VITALS: BP 107/60
[2018-08-29 07:10] VITALS: BP 126/55
[2018-08-29 07:12] VITALS: BP 95/53
--- NOTE | 2018-08-29 07:12 | NUR ---
PT ALERT RESP EVEN AND UNLABORED, NO DISTRESS NOTED, PT ABLE TO MAKE NEEDS KNOWN, NO C/O PAIN WHEN ASKED, CALL LIGHT IN REACH.
[2018-08-29] MEDS: INSULIN LISPRO 100 UNIT/1 ML 3ML VIAL SQ SCH ×2 (07:30→13:21)
[2018-08-29] MEDS: DIGOXIN 0.125 MG TAB PO SCH (09:15)
[2018-08-29] MEDS: LISINOPRIL 2.5 MG TAB PO SCH (09:15)
[2018-08-29] MEDS: AMIODARONE HCL 200 MG TAB PO SCH (09:15)
[2018-08-29] MEDS: CARVEDILOL 3.125 MG TAB PO SCH (09:15)
[2018-08-29 09:38] VITALS: BP 126/55
[2018-08-29] MEDS ORDERED: BISACODYL 10 MG SUPP PR ONE (10:30)
--- NOTE | 2018-08-29 11:21 | Discharge Summary ---
A 77-year-old female patient. History of cardiomyopathy with EF of 20%, had a defibrillator placement. Patient's defibrillator went off and felt a shock when she was at [employer]. Patient was brought to the emergency room. Seen by curtain feller blindstitch. Defibrillator was interrogated by [facility]. Therapy was reviewed and the patient is back to normal sinus rhythm. She is cleared by cardiology. She will be discharged home on the same medications. Advised to follow up in the office in [address] Armando Phillips and activity as tolerated. Diet, low-salt diet. FITO JAVIER MD Job#: [id number] TA
[2018-08-29 12:18] VITALS: BP 129/58
[2018-08-29] MEDS ORDERED: BISACODYL 10 MG SUPP PR SCH (13:45)
--- NOTE | 2018-08-29 17:02 | NUR ---
PT ALERT RESP EVEN AND UNLABORED AT THIS TIME. NO DISTRESS NOTED PT AND FAMILY MEMBER WAS EDUCATED ON HER PRESCRIPTIONS AND WAS ASKED TO FOLLOW UP WITH HER PCP, PT IV SITE REMOVED NO REDNESS NO SWELLING TO SITE,.
== END 2018-08-29 17:03 | disposition home or self-care (01) ==
LOC: ER 10:56 → ERHOLD 14:24 → MED/SURG2 16:36
PROVIDERS: ADMIT Internal Medicine; ATTEND Internal Medicine
DX: I47.2 Ventricular tachycardia (principal); Z95.810 Presence of automatic (implantable) cardiac defibrillator; Z88.5 Allergy status to narcotic agent; E11.9 Type 2 diabetes mellitus without complications; I25.10 Atherosclerotic heart disease of native coronary artery without angina pectoris; E78.5 Hyperlipidemia, unspecified; I48.91 Unspecified atrial fibrillation; I11.0 Hypertensive heart disease with heart failure; I50.9 Heart failure, unspecified; K21.9 Gastro-esophageal reflux disease without esophagitis; Z83.3 Family history of diabetes mellitus; Z82.49 Family history of ischemic heart disease and other diseases of the circulatory system
CPT/HCPCS: 36415 ×3; 71045; 80053 ×2; 80061; 80162; 81001; 82550 ×2; 82553 ×2; 82948 ×3; 83735 ×2; 84484 ×2; 85025 ×2; 93005; 93306; 99284; G0378 ×3

== ENCOUNTER 2022-03-14 09:34 | Inpatient (IN) | payer MEDICARE ==
[~2022-03-14] VITALS: Ht 160 cm; Wt 68.0 kg
[~2022-03-14 09:34] MED LIST changes: +DICYCLOMINE HCL20 MG PO
[2022-03-14] MEDS ORDERED: ASPIRIN 81 MG CHEW TAB PO ONE (09:45)
[2022-03-14 10:56] LABS: BASOPHILS # (AUTO) 0.1 (0.0-0.1); BASOPHILS % 0.6 % (0.0-1.0); EOSINOPHILS # (AUTO) 0.1 (0.0-0.4); HEMATOCRIT 43.7 % (34.2-44.1); LYMPHOCYTES # (AUTO) 1.6 (1.0-3.2); LYMPHOCYTES % 19.9 % (18.0-39.1); MEAN CORPUSCULAR HEMOGLOBIN 28.1 pg (28-32); MEAN CORPUSCULAR VOLUME 87.6 fL (81-99); MONOCYTES # (AUTO) 0.5 (0.2-0.8); MONOCYTES % 6.4 % (4.4-11.3); NEUTROPHILS # (AUTO) 5.7 (2.1-6.9); NEUTROPHILS % 71.8 % (38.7-80.0); PLATELET COUNT 132 x10e3/uL (140-360); RED BLOOD COUNT 4.99 x10e6/uL (3.6-5.1); RED CELL DISTRIBUTION WIDTH 13.2 % (11.7-14.4)
[2022-03-14 11:04] LABS: INR 0.95; PARTIAL THROMBOPLASTIN TIME 27.8 seconds (23.8-35.5); PROTHROMBIN TIME 13.6 seconds (11.9-14.5)
[2022-03-14 11:15] LABS: ALANINE AMINOTRANSFERASE 7 IU/L (0-55); ALBUMIN 3.6 g/dL (3.5-5.0); ALKALINE PHOSPHATASE 54 IU/L (40-150); ANION GAP 15.9 mmol/L (8-16); BLOOD UREA NITROGEN 14 mg/dL (7-26); BUN/CREATININE RATIO 13 (6-25); CALCIUM 8.8 mg/dL (8.4-10.2); CARBON DIOXIDE 24 mmol/L (22-29); CHLORIDE 105 mmol/L (98-107); CREATINE KINASE 33 IU/L (29-168); CREATININE, SERUM 1.08 mg/dL (0.57-1.11); GLUCOSE 109 mg/dL (74-118); MAGNESIUM 1.7 MG/DL (1.3-2.1); POTASSIUM 3.9 mmol/L (3.5-5.1); SODIUM 141 mmol/L (136-145)
[2022-03-14] MEDS ORDERED: ONDANSETRON HCL INJ 2MG/ML 2ML 2 MG/ML VIAL IV PRN (11:45)
[2022-03-14] MEDS ORDERED: FAMOTIDINE 20 MG/2 ML VIAL IV SCH (11:45)
[2022-03-14] MEDS ORDERED: Morphine 2mg Syringe 2 MG/ML SYR IV PRN (11:45)
[2022-03-14 14:01] VITALS: BP 92/47
[2022-03-14 14:34] VITALS: BP 92/47
[2022-03-14 14:48] VITALS: BP 92/47
[2022-03-14 14:49] LABS: CREATINE KINASE MB 0.7 ng/mL (0-5.0)
[2022-03-14] MEDS: FAMOTIDINE 20 MG/2 ML VIAL IV SCH (16:00)
[2022-03-14 16:30] VITALS: BP 100/68
[2022-03-14 19:45] VITALS: BP 90/64
[2022-03-14 20:00] VITALS: BP 90/64
[2022-03-14 23:42] LABS: CREATINE KINASE MB 0.7 ng/mL (0-5.0)
[2022-03-15] VITALS (7 sets, daily range): BP systolic 83–106; BP diastolic 46–77
[2022-03-15] MEDS: FAMOTIDINE 20 MG/2 ML VIAL IV SCH ×2 (04:44→17:06)
[2022-03-15 06:02] LABS: BASOPHILS # (AUTO) 0.1 (0.0-0.1); BASOPHILS % 0.9 % (0.0-1.0); EOSINOPHILS # (AUTO) 0.1 (0.0-0.4); EOSINOPHILS % 2.1 % (0.0-6.0); HEMATOCRIT 39.5 % (34.2-44.1); HEMOGLOBIN 12.6 g/dL (12.0-16.0); LYMPHOCYTES % 29.9 % (18.0-39.1); MEAN CORPUSCULAR HGB CONC 31.9 g/dL (31-35); MEAN CORPUSCULAR VOLUME 87.8 fL (81-99); MONOCYTES # (AUTO) 0.5 (0.2-0.8); MONOCYTES % 7.3 % (4.4-11.3); NEUTROPHILS # (AUTO) 3.9 (2.1-6.9); NEUTROPHILS % 59.6 % (38.7-80.0); PLATELET COUNT 137 x10e3/uL (140-360); RED CELL DISTRIBUTION WIDTH 13.2 % (11.7-14.4)
[2022-03-15 06:17] LABS: ALBUMIN 3.3 g/dL (3.5-5.0); ANION GAP 13.8 mmol/L (8-16); CALCIUM 8.3 mg/dL (8.4-10.2); CHOL/HDL RATIO 5.6 (3.0-3.6); CREATININE, SERUM 0.93 mg/dL (0.57-1.11); POTASSIUM 3.8 mmol/L (3.5-5.1)
[2022-03-15 06:57] LABS: CREATINE KINASE MB 0.7 ng/mL (0-5.0)
[2022-03-15] MEDS ORDERED: ACETAMINOPHEN 325 MG TAB PO PRN (09:15)
[2022-03-15] MEDS: ASPIRIN 81 MG ENTERIC COATED PO SCH (09:16)
[2022-03-15] MEDS ORDERED: DEXTROSE 50% SYRINGE 50 ML IV PRN (09:30)
[2022-03-15] MEDS ORDERED: DIGOXIN 0.125 MG TAB PO ONE (09:45)
[2022-03-15] MEDS ORDERED: INSULIN LISPRO 100 UNIT/1 ML 3ML VIAL SQ SCH (11:30)
[2022-03-15] MEDS: INSULIN REGULAR, HUMAN 100 UNIT/1 ML SQ SCH ×3 (11:30→21:00)
[2022-03-15] MEDS: SPIRONOLACTONE 25 MG TAB PO SCH (11:44)
[2022-03-15] MEDS: DOCUSATE SODIUM 100 MG CAP PO SCH (11:44)
[2022-03-15] MEDS: DULOXETINE HCL 20 MG DELAYED RELEASE PO SCH (11:45)
[2022-03-15] MEDS: CARVEDILOL 3.125 MG TAB PO SCH (11:45)
[2022-03-16] VITALS: BP 94/53
[2022-03-16 04:00] VITALS: BP 89/56
[2022-03-16] MEDS: FAMOTIDINE 20 MG/2 ML VIAL IV SCH ×2 (05:42→16:00)
[2022-03-16] MEDS: INSULIN REGULAR, HUMAN 100 UNIT/1 ML SQ SCH ×4 (07:30→21:00)
[2022-03-16 08:02] VITALS: BP 94/68
[2022-03-16] MEDS: CARVEDILOL 3.125 MG TAB PO SCH ×2 (09:00→17:00)
[2022-03-16] MEDS: DULOXETINE HCL 20 MG DELAYED RELEASE PO SCH (10:51)
[2022-03-16] MEDS: SPIRONOLACTONE 25 MG TAB PO SCH (10:52)
[2022-03-16] MEDS: DOCUSATE SODIUM 100 MG CAP PO SCH (10:52)
[2022-03-16] MEDS: ASPIRIN 81 MG ENTERIC COATED PO SCH (10:53)
[2022-03-16] MEDS ORDERED: SODIUM CHLORIDE 0.9% 1000ML 3,000 ML ONE (12:20)
[2022-03-16] MEDS ORDERED: SODIUM CHLORIDE 0.9% 250ML 250 ML ONE (12:22)
[2022-03-16] MEDS ORDERED: Vancomycin IV 1 GM VIAL ONE (12:22)
[2022-03-16] MEDS ORDERED: GENTAMICIN SULFATE 40 MG/ML 2 ML VIAL ONE (12:22)
[2022-03-16] MEDS ORDERED: FENTANYL CITRATE/PF 100MCG/2 ML INJ ONE (12:23)
[2022-03-16] MEDS ORDERED: MIDAZOLAM HCL 2 MG/2 ML VIAL ONE ×2 (12:23→14:06)
[2022-03-16] MEDS ORDERED: LIDOCAINE HCL 1% LOCAL INJ 20 ML VIAL ONE ×2 (12:26→12:27)
[2022-03-16 12:53] VITALS: BP 94/69
[2022-03-16 16:06] VITALS: BP 107/66
[2022-03-16 20:00] VITALS: BP 97/47
[2022-03-17] VITALS (9 sets, daily range): BP systolic 90–123; BP diastolic 56–75
[2022-03-17] MEDS: FAMOTIDINE 20 MG/2 ML VIAL IV SCH ×2 (05:47→16:45)
[2022-03-17] MEDS: INSULIN REGULAR, HUMAN 100 UNIT/1 ML SQ SCH ×4 (07:30→21:00)
[2022-03-17] MEDS: DULOXETINE HCL 20 MG DELAYED RELEASE PO SCH (09:14)
[2022-03-17] MEDS: CARVEDILOL 3.125 MG TAB PO SCH ×2 (09:15→16:45)
[2022-03-17] MEDS: DOCUSATE SODIUM 100 MG CAP PO SCH (09:15)
[2022-03-17] MEDS: ASPIRIN 81 MG ENTERIC COATED PO SCH (09:15)
[2022-03-17] MEDS: SPIRONOLACTONE 25 MG TAB PO SCH (09:15)
[2022-03-18] VITALS: BP 106/52
[2022-03-18 04:00] VITALS: BP 110/65
[2022-03-18] MEDS: FAMOTIDINE 20 MG/2 ML VIAL IV SCH (04:58)
[2022-03-18] MEDS: INSULIN REGULAR, HUMAN 100 UNIT/1 ML SQ SCH ×2 (07:30→11:21)
[2022-03-18 07:59] VITALS: BP 109/62
[2022-03-18] MEDS: DULOXETINE HCL 20 MG DELAYED RELEASE PO SCH (10:08)
[2022-03-18] MEDS: ASPIRIN 81 MG ENTERIC COATED PO SCH (10:08)
[2022-03-18] MEDS: DOCUSATE SODIUM 100 MG CAP PO SCH (10:08)
[2022-03-18] MEDS: CARVEDILOL 3.125 MG TAB PO SCH (10:09)
[2022-03-18] MEDS: SPIRONOLACTONE 25 MG TAB PO SCH (10:09)
[2022-03-18 11:29] VITALS: BP 110/64
[2022-03-18 14:41] VITALS: BP 110/64
[2022-03-18 15:00] VITALS: BP 118/63
== END 2022-03-18 16:06 | disposition home or self-care (01) | DRG 245 ==
LOC: ER 09:39 → ERHOLD 11:34 → MED/SURG2 13:19 → OBSVTOIN 03-16 07:38
PROVIDERS: ADMIT Internal Medicine; ATTEND Internal Medicine
PROC: 02HV33Z Insertion of Infusion Device into Superior Vena Cava, Percutaneous Approach (ICD-10-PCS; principal; 2022-03-16)
PROC: 0JH608Z Insertion of Defibrillator Generator into Chest Subcutaneous Tissue and Fascia, Open Approach (ICD-10-PCS; 2022-03-16)
PROC: 0JPT0PZ Removal of Cardiac Rhythm Related Device from Trunk Subcutaneous Tissue and Fascia, Open Approach (ICD-10-PCS; 2022-03-16)
PROC: 02WA0MZ Revision of Cardiac Lead in Heart, Open Approach (ICD-10-PCS; 2022-03-16)
DX: T82.191A Other mechanical complication of cardiac pulse generator (battery), initial encounter (principal); I50.43 Acute on chronic combined systolic (congestive) and diastolic (congestive) heart failure; I42.8 Other cardiomyopathies; Z79.01 Long term (current) use of anticoagulants; M81.0 Age-related osteoporosis without current pathological fracture; E78.5 Hyperlipidemia, unspecified; I11.0 Hypertensive heart disease with heart failure; R07.89 Other chest pain; Z20.822 Contact with and (suspected) exposure to COVID-19; I48.91 Unspecified atrial fibrillation
CPT/HCPCS: 0223U; 33264; 36415; 71045; 80053; 80061; 82550; 82553; 82948; 83735; 83880; 84484; 85025; 85610; 85730; 93005; 93306; 99152; 99153; 99251; 99284; C1763; C1882; G0378; J1580; J2001; J2250; J2405; J3010; J3370; J7030; J7050

== ENCOUNTER 2022-08-30 07:24 | Inpatient (IN) | payer MEDICARE ==
[~2022-08-30] VITALS: Ht 160 cm; Wt 64.9 kg
[2022-08-30] VITALS (51 sets, daily range): BP systolic 57–138; BP diastolic 41–126
[2022-08-30] MEDS ORDERED: SODIUM CHLORIDE 0.9% 500ML 500 ML IV ONE ×2 (08:00→09:45)
[2022-08-30 08:21] LABS: BASOPHILS % 0.2 % (0.0-1.0); HEMATOCRIT 43.9 % (34.2-44.1); HEMOGLOBIN 13.4 g/dL (12.0-16.0); LYMPHOCYTES % 11.4 % (18.0-39.1); MEAN CORPUSCULAR HEMOGLOBIN 26.8 pg (28-32); MEAN CORPUSCULAR HGB CONC 30.5 g/dL (31-35); MEAN CORPUSCULAR VOLUME 87.8 fL (81-99); MONOCYTES # (AUTO) 0.5 (0.2-0.8); MONOCYTES % 5.6 % (4.4-11.3); NEUTROPHILS # (AUTO) 6.8 (2.1-6.9); PLATELET COUNT 145 x10e3/uL (140-360); RED CELL DISTRIBUTION WIDTH 17.5 % (11.7-14.4)
[2022-08-30 08:27] LABS: CLARITY,URINE TURBID (CLEAR); COLOR,URINE YELLOW (YELLOW); LEUKOCYTE ESTERASE ,URINE LARGE (NEGATIVE); NITRITE,URINE NEGATIVE (NEGATIVE); PROTEIN,URINE DIPSTICK 2+ (NEGATIVE)
[2022-08-30 08:28] LABS: KETONES,URINE TRACE (NEGATIVE)
[2022-08-30 08:34] LABS: BACTERIA,URINE MODERATE /HPF; EPITHELIAL CELLS,URINE FEW /LPF; RBC,URINE >50 /HPF (0-5); WBC,URINE (MAN) >50 /HPF (0-5)
[2022-08-30 08:36] LABS: INR 0.83; PROTHROMBIN TIME 11.6 seconds (11.9-14.5)
[2022-08-30 08:37] LABS: PARTIAL THROMBOPLASTIN TIME 33.8 seconds (23.8-35.5)
[2022-08-30 08:46] LABS: ALBUMIN 2.7 g/dL (3.5-5.0); ALBUMIN/GLOBULIN RATIO 0.6 (0.8-2.0); ANION GAP 27.5 mmol/L (8-16); CREATININE, SERUM 3.08 mg/dL (0.57-1.11); POTASSIUM 3.5 mmol/L (3.5-5.1)
[2022-08-30 08:52] LABS: CREATINE KINASE MB 8.3 ng/mL (0-5.0)
[2022-08-30] MEDS ORDERED: SODIUM CHLORIDE 0.9% 1000ML 1,000 ML IV SCH (10:15)
[2022-08-30] MEDS: NOREPINEPHRINE 8 MG/D5W 250 ML 250 ML IV SCH (10:32)
[2022-08-30] MEDS ORDERED: NOREPINEPHRINE 8 MG/D5W 250 ML 250 ML ONE (10:46)
[2022-08-30] MEDS ORDERED: ONDANSETRON HCL INJ 2MG/ML 2ML 2 MG/ML VIAL IV PRN (11:00)
[2022-08-30] MEDS ORDERED: Vancomycin IV 1 GM in SODIUM CHLORIDE 0.9% 250ML 250 ML IV ONE (11:00)
[2022-08-30] MEDS ORDERED: ACETAMINOPHEN 325 MG TAB PO PRN (11:00)
[2022-08-30] MEDS ORDERED: SYMBICORT 16010.2 GM INH (12:36)
[2022-08-30] MEDS ORDERED: AMITIZA24 MCG PO (12:36)
[2022-08-30] MEDS ORDERED: OXYBUTYNIN CHLOR5 M1 PO (12:36)
[2022-08-30] MEDS ORDERED: MIRTAZAPINE7.5 MG PO (12:36)
[2022-08-30] MEDS ORDERED: PROTONIX20 MG PO (12:36)
[2022-08-30] MEDS ORDERED: CYMBALTA30 MG PO (12:36)
[2022-08-30] MEDS ORDERED: COLACE100 M1 PO (12:36)
[2022-08-30 12:49] LABS: CREATINE KINASE MB 8.2 ng/mL (0-5.0)
[2022-08-30] MEDS ORDERED: SODIUM CHLORIDE 0.9% 1000ML 1,000 ML IV STA (13:33)
[2022-08-30] MEDS: DEXTROSE 5% 1,000 ML IV SCH ×2 (13:52→23:52)
[2022-08-30 14:01] LABS: MAGNESIUM 1.7 MG/DL (1.3-2.1); PHOSPHORUS 3.9 MG/DL (2.3-4.7)
[2022-08-30] MEDS ORDERED: CITRATE OF MAGNESIA 300ML BOTTLE PO ONE (15:45)
[2022-08-30 16:29] LABS: BASOPHILS % 0.3 % (0.0-1.0); HEMATOCRIT 40.4 % (34.2-44.1); LYMPHOCYTES # (AUTO) 0.7 (1.0-3.2); LYMPHOCYTES % 6.9 % (18.0-39.1); MEAN CORPUSCULAR HEMOGLOBIN 26.5 pg (28-32); MEAN CORPUSCULAR HGB CONC 29.7 g/dL (31-35); MEAN CORPUSCULAR VOLUME 89.4 fL (81-99); MONOCYTES # (AUTO) 0.6 (0.2-0.8); MONOCYTES % 6.3 % (4.4-11.3); NEUTROPHILS # (AUTO) 7.9 (2.1-6.9); NEUTROPHILS % 84.6 % (38.7-80.0); PLATELET COUNT 111 x10e3/uL (140-360); RED BLOOD COUNT 4.52 x10e6/uL (3.6-5.1); RED CELL DISTRIBUTION WIDTH 17.8 % (11.7-14.4)
[2022-08-30] MEDS: MINERAL OIL 30 ML CUP NG SCH (17:00)
[2022-08-30] MEDS: POLYETHYLENE GLYCOL 3350 17 GM PACK PO SCH (17:00)
[2022-08-30] MEDS ORDERED: LACTULOSE SYRUP 20 GM/30 ML UDC RC ONE (17:00)
[2022-08-30] MEDS ORDERED: ZIPRASIDONE 20 MG VIAL IM ONE (18:00)
[2022-08-30] MEDS ORDERED: WATER STERILE 10 ML VIAL INJ ONE (18:15)
[2022-08-30 20:53] LABS: CREATINE KINASE MB 10.9 ng/mL (0-5.0)
[2022-08-30] MEDS ORDERED: LACTULOSE SYRUP 20 GM/30 ML UDC ONE (22:08)
[2022-08-31] VITALS (94 sets, daily range): BP systolic 67–115; BP diastolic 24–96
[2022-08-31 02:16] LABS: BASOPHILS % 0.1 % (0.0-1.0); EOSINOPHILS % 0.1 % (0.0-6.0); HEMATOCRIT 37.5 % (34.2-44.1); HEMOGLOBIN 11.4 g/dL (12.0-16.0); LYMPHOCYTES % 11.8 % (18.0-39.1); MEAN CORPUSCULAR HEMOGLOBIN 26.6 pg (28-32); MEAN CORPUSCULAR HGB CONC 30.4 g/dL (31-35); MEAN CORPUSCULAR VOLUME 87.6 fL (81-99); MONOCYTES # (AUTO) 0.5 (0.2-0.8); MONOCYTES % 6.2 % (4.4-11.3); NEUTROPHILS # (AUTO) 6.8 (2.1-6.9); NEUTROPHILS % 80.4 % (38.7-80.0); PLATELET COUNT 112 x10e3/uL (140-360); RED BLOOD COUNT 4.28 x10e6/uL (3.6-5.1); RED CELL DISTRIBUTION WIDTH 17.5 % (11.7-14.4)
[2022-08-31] MEDS: NOREPINEPHRINE 8 MG/D5W 250 ML 250 ML IV SCH (06:03)
[2022-08-31 06:38] LABS: BASOPHILS % 0.1 % (0.0-1.0); EOSINOPHILS % 0.1 % (0.0-6.0); HEMATOCRIT 37.5 % (34.2-44.1); HEMOGLOBIN 11.3 g/dL (12.0-16.0); LYMPHOCYTES % 11.1 % (18.0-39.1); MEAN CORPUSCULAR HEMOGLOBIN 26.5 pg (28-32); MEAN CORPUSCULAR HGB CONC 30.1 g/dL (31-35); MEAN CORPUSCULAR VOLUME 87.8 fL (81-99); MONOCYTES # (AUTO) 0.5 (0.2-0.8); MONOCYTES % 5.2 % (4.4-11.3); NEUTROPHILS # (AUTO) 7.1 (2.1-6.9); NEUTROPHILS % 81.9 % (38.7-80.0); PLATELET COUNT 109 x10e3/uL (140-360); RED BLOOD COUNT 4.27 x10e6/uL (3.6-5.1); RED CELL DISTRIBUTION WIDTH 17.4 % (11.7-14.4)
[2022-08-31 06:52] LABS: ALBUMIN 2.2 g/dL (3.5-5.0); ALBUMIN/GLOBULIN RATIO 0.6 (0.8-2.0); ANION GAP 15.9 mmol/L (8-16); CHOL/HDL RATIO 5.9 (3.0-3.6); CREATININE, SERUM 2.42 mg/dL (0.57-1.11)
[2022-08-31 06:56] LABS: POTASSIUM 2.9 mmol/L (3.5-5.1)
[2022-08-31 07:22] LABS: CREATINE KINASE MB 16.9 ng/mL (0-5.0)
[2022-08-31] MEDS ORDERED: POTASSIUM CHLORIDE 20MEQ/100ML 100 ML IV ONE (07:45)
[2022-08-31] MEDS: AMIODARONE HCL 200 MG TAB PO SCH (09:00)
[2022-08-31] MEDS ORDERED: POTASSIUM CHLORIDE 20MEQ/100ML 200 ML IV ONE (09:00)
[2022-08-31] MEDS: POLYETHYLENE GLYCOL 3350 17 GM PACK PO SCH ×3 (09:00→15:39)
[2022-08-31] MEDS: MINERAL OIL 30 ML CUP NG SCH ×3 (09:00→15:39)
[2022-08-31] MEDS: DEXTROSE 5% 1,000 ML IV SCH (09:06)
[2022-08-31] MEDS: POTASSIUM CHLORIDE 20 MEQ in DEXTROSE 5% 1,000 ML IV SCH ×2 (09:38→23:58)
[2022-08-31] MEDS ORDERED: ALBUMIN 5% 0.05 GM/ML BTL IV ONE (10:00)
[2022-08-31] MEDS: DEXMEDETOMIDINE 400MCG/NS100ML 100 ML IV PRN ×2 (15:40→23:56)
[2022-09-01] VITALS (81 sets, daily range): BP systolic 69–118; BP diastolic 36–97
[2022-09-01] MEDS: NOREPINEPHRINE 8 MG/D5W 250 ML 250 ML IV SCH (06:11)
[2022-09-01 07:30] LABS: ALBUMIN/GLOBULIN RATIO 0.6 (0.8-2.0); ANION GAP 15.5 mmol/L (8-16); CALCIUM 7.9 mg/dL (8.4-10.2); CREATININE, SERUM 1.87 mg/dL (0.57-1.11); POTASSIUM 3.5 mmol/L (3.5-5.1)
[2022-09-01 07:39] LABS: BASOPHILS % 0.3 % (0.0-1.0); EOSINOPHILS # (AUTO) 0.1 (0.0-0.4); EOSINOPHILS % 0.8 % (0.0-6.0); HEMATOCRIT 35.2 % (34.2-44.1); HEMOGLOBIN 10.8 g/dL (12.0-16.0); LYMPHOCYTES # (AUTO) 1.3 (1.0-3.2); LYMPHOCYTES % 19.1 % (18.0-39.1); MEAN CORPUSCULAR HEMOGLOBIN 26.8 pg (28-32); MEAN CORPUSCULAR HGB CONC 30.7 g/dL (31-35); MEAN CORPUSCULAR VOLUME 87.3 fL (81-99); MONOCYTES # (AUTO) 0.4 (0.2-0.8); MONOCYTES % 6.3 % (4.4-11.3); NEUTROPHILS # (AUTO) 4.8 (2.1-6.9); NEUTROPHILS % 71.4 % (38.7-80.0); RED BLOOD COUNT 4.03 x10e6/uL (3.6-5.1); RED CELL DISTRIBUTION WIDTH 17.2 % (11.7-14.4)
[2022-09-01 07:42] LABS: PLATELET COUNT 92 x10e3/uL (140-360)
[2022-09-01] MEDS: DEXMEDETOMIDINE 400MCG/NS100ML 100 ML IV PRN ×2 (08:35→17:24)
[2022-09-01] MEDS: COLLAGENASE 5 GM TUBE TOP SCH (08:49)
[2022-09-01] MEDS: MINERAL OIL 30 ML CUP NG SCH ×2 (08:49→15:56)
[2022-09-01] MEDS: BACITRACIN ZINC 15 GM OINT TOP SCH (08:49)
[2022-09-01] MEDS: LINEZOLID 600 MG/D5W 300ML 300 ML IV SCH ×2 (08:50→21:08)
[2022-09-01] MEDS: POLYETHYLENE GLYCOL 3350 17 GM PACK PO SCH ×2 (08:50→15:56)
[2022-09-01] MEDS: AMIODARONE HCL 200 MG TAB PO SCH (08:50)
[2022-09-01] MEDS ORDERED: ALBUMIN 5% 0.05 GM/ML BTL IV ONE (10:00)
[2022-09-01] MEDS: ALBUMIN 5% 250ML 250 ML IV SCH ×2 (10:20→11:34)
[2022-09-01] MEDS ORDERED: MAGNESIUM SULFATE 2GM/50ML 50 ML IV ONE (11:00)
[2022-09-01] MEDS ORDERED: POTASSIUM CHLORIDE 20MEQ/100ML 100 ML IV ONE (11:00)
[2022-09-01] MEDS: POTASSIUM CHLORIDE 20 MEQ in DEXTROSE 5% 1,000 ML IV SCH ×2 (13:05→17:23)
[2022-09-01] MEDS: HYDROCORTISONE SOD SUCCINATE 100 MG VIAL IV SCH ×2 (15:56→21:08)
[2022-09-02] VITALS (64 sets, daily range): BP systolic 76–124; BP diastolic 52–82
[2022-09-02] MEDS: DEXMEDETOMIDINE 400MCG/NS100ML 100 ML IV PRN ×2 (03:17→17:11)
[2022-09-02] MEDS: HYDROCORTISONE SOD SUCCINATE 100 MG VIAL IV SCH ×2 (05:16→13:23)
[2022-09-02 06:55] LABS: BASOPHILS % 0.3 % (0.0-1.0); HEMATOCRIT 34.5 % (34.2-44.1); HEMOGLOBIN 10.9 g/dL (12.0-16.0); LYMPHOCYTES # (AUTO) 0.7 (1.0-3.2); LYMPHOCYTES % 10.3 % (18.0-39.1); MEAN CORPUSCULAR HEMOGLOBIN 26.7 pg (28-32); MEAN CORPUSCULAR HGB CONC 31.6 g/dL (31-35); MEAN CORPUSCULAR VOLUME 84.4 fL (81-99); MONOCYTES # (AUTO) 0.1 (0.2-0.8); MONOCYTES % 1.5 % (4.4-11.3); NEUTROPHILS # (AUTO) 5.6 (2.1-6.9); NEUTROPHILS % 85.8 % (38.7-80.0); PLATELET COUNT 93 x10e3/uL (140-360); RED BLOOD COUNT 4.09 x10e6/uL (3.6-5.1); RED CELL DISTRIBUTION WIDTH 17.4 % (11.7-14.4)
[2022-09-02 07:17] LABS: ALBUMIN 2.7 g/dL (3.5-5.0); ALBUMIN/GLOBULIN RATIO 0.9 (0.8-2.0); ANION GAP 18.1 mmol/L (8-16); CREATININE, SERUM 1.84 mg/dL (0.57-1.11); POTASSIUM 5.1 mmol/L (3.5-5.1)
[2022-09-02] MEDS: AMIODARONE HCL 200 MG TAB PO SCH (09:23)
[2022-09-02] MEDS: MINERAL OIL 30 ML CUP NG SCH ×2 (09:23→17:10)
[2022-09-02] MEDS: POLYETHYLENE GLYCOL 3350 17 GM PACK PO SCH ×2 (09:23→17:11)
[2022-09-02] MEDS: BACITRACIN ZINC 15 GM OINT TOP SCH (09:25)
[2022-09-02] MEDS: COLLAGENASE 5 GM TUBE TOP SCH (09:25)
[2022-09-02] MEDS: LINEZOLID 600 MG/D5W 300ML 300 ML IV SCH ×2 (09:27→21:06)
[2022-09-02] MEDS: NOREPINEPHRINE 8 MG/D5W 250 ML 250 ML IV SCH (10:32)
[2022-09-02] MEDS ORDERED: SOD POLYSTYRENE SULFONATE SUSP 15 GM/60 ML BTL NG ONE (15:15)
[2022-09-02] MEDS ORDERED: ALBUMIN 5% 0.05 GM/ML BTL IV ONE (15:15)
[2022-09-02] MEDS: METHYLPREDNISOLONE SOD SUCC 40 MG/ML VIAL 1ML IV SCH (20:39)
[2022-09-03] VITALS (63 sets, daily range): BP systolic 65–122; BP diastolic 37–89
[2022-09-03 06:55] LABS: BASOPHILS % 0.1 % (0.0-1.0); HEMATOCRIT 33.1 % (34.2-44.1); HEMOGLOBIN 10.4 g/dL (12.0-16.0); LYMPHOCYTES # (AUTO) 0.8 (1.0-3.2); LYMPHOCYTES % 11.2 % (18.0-39.1); MEAN CORPUSCULAR HEMOGLOBIN 26.7 pg (28-32); MEAN CORPUSCULAR HGB CONC 31.4 g/dL (31-35); MEAN CORPUSCULAR VOLUME 84.9 fL (81-99); MONOCYTES # (AUTO) 0.2 (0.2-0.8); MONOCYTES % 2.5 % (4.4-11.3); NEUTROPHILS # (AUTO) 5.7 (2.1-6.9); NEUTROPHILS % 84.6 % (38.7-80.0); PLATELET COUNT 50 x10e3/uL (140-360); RED CELL DISTRIBUTION WIDTH 17.9 % (11.7-14.4)
[2022-09-03 07:14] LABS: ALBUMIN 2.9 g/dL (3.5-5.0); ALBUMIN/GLOBULIN RATIO 1.1 (0.8-2.0); ANION GAP 18.3 mmol/L (8-16); CALCIUM 7.9 mg/dL (8.4-10.2); CREATININE, SERUM 1.94 mg/dL (0.57-1.11); POTASSIUM 4.3 mmol/L (3.5-5.1)
[2022-09-03] MEDS: AMIODARONE HCL 200 MG TAB PO SCH (08:09)
[2022-09-03] MEDS: METHYLPREDNISOLONE SOD SUCC 40 MG/ML VIAL 1ML IV SCH ×2 (08:09→20:16)
[2022-09-03] MEDS: MINERAL OIL 30 ML CUP NG SCH ×2 (08:09→17:38)
[2022-09-03] MEDS: COLLAGENASE 5 GM TUBE TOP SCH (08:11)
[2022-09-03] MEDS: BACITRACIN ZINC 15 GM OINT TOP SCH (08:11)
[2022-09-03] MEDS: POLYETHYLENE GLYCOL 3350 17 GM PACK PO SCH ×2 (08:12→17:00)
[2022-09-03] MEDS: LINEZOLID 600 MG/D5W 300ML 300 ML IV SCH (08:12)
[2022-09-03] MEDS: DEXMEDETOMIDINE 400MCG/NS100ML 100 ML IV PRN (10:34)
[2022-09-03] MEDS ORDERED: BUMETANIDE INJ 0.25MG/ML 4ML VIAL IV ONE (11:15)
[2022-09-03] MEDS ORDERED: DEXTROSE 50% SYRINGE 50 ML IV PRN (11:15)
[2022-09-03] MEDS: CITRIC ACID/SODIUM CITRATE 30 ML UDC PO SCH ×2 (11:51→17:38)
[2022-09-03] MEDS: INSULIN REGULAR, HUMAN 100 UNIT/1 ML SQ SCH ×3 (11:52→21:06)
[2022-09-03] MEDS: SODIUM BICARBONATE 8.4% 150 ML in STERILE WATER IV SOLN 1,000 ML IV SCH (11:53)
[2022-09-03] MEDS: NITROFURANTOIN MACROCRYSTALS 100 MG CAP PO SCH (17:43)
[2022-09-04] VITALS (38 sets, daily range): BP systolic 77–98; BP diastolic 48–59
[2022-09-04] MEDS: CITRIC ACID/SODIUM CITRATE 30 ML UDC PO SCH ×5 (01:02→23:53)
[2022-09-04 06:45] LABS: BASOPHILS % 0.2 % (0.0-1.0); HEMATOCRIT 30.2 % (34.2-44.1); HEMOGLOBIN 10.4 g/dL (12.0-16.0); LYMPHOCYTES # (AUTO) 0.6 (1.0-3.2); LYMPHOCYTES % 6.4 % (18.0-39.1); MEAN CORPUSCULAR HEMOGLOBIN 27.1 pg (28-32); MEAN CORPUSCULAR HGB CONC 34.4 g/dL (31-35); MEAN CORPUSCULAR VOLUME 78.6 fL (81-99); MONOCYTES # (AUTO) 0.2 (0.2-0.8); MONOCYTES % 2.6 % (4.4-11.3); NEUTROPHILS # (AUTO) 7.8 (2.1-6.9); NEUTROPHILS % 89.4 % (38.7-80.0); PLATELET COUNT 60 x10e3/uL (140-360); RED BLOOD COUNT 3.84 x10e6/uL (3.6-5.1); RED CELL DISTRIBUTION WIDTH 17.9 % (11.7-14.4)
[2022-09-04 07:03] LABS: ALBUMIN 2.6 g/dL (3.5-5.0); ANION GAP 16.3 mmol/L (8-16); CALCIUM 7.5 mg/dL (8.4-10.2); CREATININE, SERUM 1.77 mg/dL (0.57-1.11); POTASSIUM 3.3 mmol/L (3.5-5.1)
[2022-09-04] MEDS: INSULIN REGULAR, HUMAN 100 UNIT/1 ML SQ SCH ×4 (07:30→20:48)
[2022-09-04] MEDS: METHYLPREDNISOLONE SOD SUCC 40 MG/ML VIAL 1ML IV SCH ×2 (08:39→20:45)
[2022-09-04] MEDS: POLYETHYLENE GLYCOL 3350 17 GM PACK PO SCH ×2 (08:40→15:44)
[2022-09-04] MEDS: MINERAL OIL 30 ML CUP NG SCH ×2 (08:40→16:22)
[2022-09-04] MEDS: NITROFURANTOIN MACROCRYSTALS 100 MG CAP PO SCH ×2 (08:40→16:22)
[2022-09-04] MEDS: AMIODARONE HCL 200 MG TAB PO SCH (08:40)
[2022-09-04] MEDS: BACITRACIN ZINC 15 GM OINT TOP SCH (08:40)
[2022-09-04] MEDS ORDERED: POTASSIUM CHLORIDE 20MEQ/100ML 200 ML IV ONE (10:15)
[2022-09-04] MEDS: COLLAGENASE 5 GM TUBE TOP SCH (10:37)
[2022-09-04] MEDS: MIDODRINE HCL 5 MG TABLET PO SCH ×2 (11:38→16:22)
[2022-09-04] MEDS: DEXMEDETOMIDINE 400MCG/NS100ML 100 ML IV PRN (13:00)
[2022-09-04] MEDS: HYDROCORTISONE 10 MG TAB PO SCH (16:22)
[2022-09-04] MEDS: SODIUM BICARBONATE 8.4% 150 ML in STERILE WATER IV SOLN 1,000 ML IV SCH (18:10)
[2022-09-05] VITALS (33 sets, daily range): BP systolic 93–107; BP diastolic 52–60
[2022-09-05] MEDS: CITRIC ACID/SODIUM CITRATE 30 ML UDC PO SCH ×3 (06:00→18:27)
[2022-09-05 06:14] LABS: BASOPHILS % 0.1 % (0.0-1.0); HEMOGLOBIN 10.3 g/dL (12.0-16.0); LYMPHOCYTES # (AUTO) 0.3 (1.0-3.2); LYMPHOCYTES % 3.9 % (18.0-39.1); MEAN CORPUSCULAR HEMOGLOBIN 26.5 pg (28-32); MEAN CORPUSCULAR HGB CONC 32.2 g/dL (31-35); MEAN CORPUSCULAR VOLUME 82.5 fL (81-99); MONOCYTES # (AUTO) 0.3 (0.2-0.8); MONOCYTES % 3.7 % (4.4-11.3); NEUTROPHILS % 91.1 % (38.7-80.0); PLATELET COUNT 76 x10e3/uL (140-360); RED BLOOD COUNT 3.88 x10e6/uL (3.6-5.1); RED CELL DISTRIBUTION WIDTH 17.2 % (11.7-14.4)
[2022-09-05 07:01] LABS: ALBUMIN 2.5 g/dL (3.5-5.0); ANION GAP 15.4 mmol/L (8-16); CALCIUM 7.8 mg/dL (8.4-10.2); CREATININE, SERUM 1.58 mg/dL (0.57-1.11); POTASSIUM 3.4 mmol/L (3.5-5.1)
[2022-09-05] MEDS: INSULIN REGULAR, HUMAN 100 UNIT/1 ML SQ SCH ×4 (07:26→20:03)
[2022-09-05] MEDS: HYDROCORTISONE 10 MG TAB PO SCH ×2 (08:39→16:20)
[2022-09-05] MEDS: MIDODRINE HCL 5 MG TABLET PO SCH ×3 (08:39→16:20)
[2022-09-05] MEDS: POLYETHYLENE GLYCOL 3350 17 GM PACK PO SCH ×2 (08:40→17:00)
[2022-09-05] MEDS: NITROFURANTOIN MACROCRYSTALS 100 MG CAP PO SCH ×2 (08:40→16:20)
[2022-09-05] MEDS: AMIODARONE HCL 200 MG TAB PO SCH (08:40)
[2022-09-05] MEDS: MINERAL OIL 30 ML CUP NG SCH ×2 (08:40→17:00)
[2022-09-05] MEDS: BACITRACIN ZINC 15 GM OINT TOP SCH (08:41)
[2022-09-05] MEDS: COLLAGENASE 5 GM TUBE TOP SCH (08:41)
[2022-09-06] VITALS (33 sets, daily range): BP systolic 79–120; BP diastolic 45–87
[2022-09-06] MEDS: CITRIC ACID/SODIUM CITRATE 30 ML UDC PO SCH ×2 (00:22→05:17)
[2022-09-06 06:43] LABS: BASOPHILS % 0.1 % (0.0-1.0); HEMATOCRIT 33.8 % (34.2-44.1); LYMPHOCYTES # (AUTO) 0.7 (1.0-3.2); LYMPHOCYTES % 7.7 % (18.0-39.1); MEAN CORPUSCULAR HEMOGLOBIN 27.2 pg (28-32); MEAN CORPUSCULAR HGB CONC 32.5 g/dL (31-35); MEAN CORPUSCULAR VOLUME 83.5 fL (81-99); MONOCYTES # (AUTO) 0.4 (0.2-0.8); MONOCYTES % 4.8 % (4.4-11.3); NEUTROPHILS % 86.6 % (38.7-80.0); PLATELET COUNT 93 x10e3/uL (140-360); RED BLOOD COUNT 4.05 x10e6/uL (3.6-5.1); RED CELL DISTRIBUTION WIDTH 17.8 % (11.7-14.4)
[2022-09-06 07:18] LABS: ALBUMIN 2.3 g/dL (3.5-5.0); ALBUMIN/GLOBULIN RATIO 0.9 (0.8-2.0); ANION GAP 12.9 mmol/L (8-16); CALCIUM 7.8 mg/dL (8.4-10.2); CREATININE, SERUM 1.34 mg/dL (0.57-1.11)
[2022-09-06] MEDS: SODIUM BICARBONATE 8.4% 150 ML in STERILE WATER IV SOLN 1,000 ML IV SCH (07:18)
[2022-09-06 07:27] LABS: POTASSIUM 2.9 mmol/L (3.5-5.1)
[2022-09-06] MEDS: INSULIN REGULAR, HUMAN 100 UNIT/1 ML SQ SCH ×4 (08:04→20:31)
[2022-09-06] MEDS: MIDODRINE HCL 5 MG TABLET PO SCH ×3 (09:04→16:55)
[2022-09-06] MEDS: NITROFURANTOIN MACROCRYSTALS 100 MG CAP PO SCH ×2 (09:04→16:55)
[2022-09-06] MEDS: HYDROCORTISONE 10 MG TAB PO SCH ×2 (09:05→16:55)
[2022-09-06] MEDS: AMIODARONE HCL 200 MG TAB PO SCH (09:06)
[2022-09-06] MEDS: BACITRACIN ZINC 15 GM OINT TOP SCH (09:07)
[2022-09-06] MEDS: MINERAL OIL 30 ML CUP NG SCH (09:22)
[2022-09-06] MEDS: POLYETHYLENE GLYCOL 3350 17 GM PACK PO SCH ×2 (09:22→16:56)
[2022-09-06] MEDS: POTASSIUM CHLORIDE 20MEQ/100ML 100 ML IV SCH ×2 (11:12→11:13)
[2022-09-06] MEDS: COLLAGENASE 5 GM TUBE TOP SCH (16:55)
[2022-09-07] VITALS (31 sets, daily range): BP systolic 99–127; BP diastolic 52–92
[2022-09-07 06:36] LABS: BASOPHILS % 0.1 % (0.0-1.0); EOSINOPHILS % 0.4 % (0.0-6.0); HEMATOCRIT 33.6 % (34.2-44.1); HEMOGLOBIN 10.7 g/dL (12.0-16.0); LYMPHOCYTES # (AUTO) 1.3 (1.0-3.2); LYMPHOCYTES % 14.8 % (18.0-39.1); MEAN CORPUSCULAR HEMOGLOBIN 26.7 pg (28-32); MEAN CORPUSCULAR HGB CONC 31.8 g/dL (31-35); MEAN CORPUSCULAR VOLUME 83.8 fL (81-99); MONOCYTES # (AUTO) 0.5 (0.2-0.8); MONOCYTES % 6.2 % (4.4-11.3); NEUTROPHILS # (AUTO) 6.6 (2.1-6.9); PLATELET COUNT 90 x10e3/uL (140-360); RED BLOOD COUNT 4.01 x10e6/uL (3.6-5.1); RED CELL DISTRIBUTION WIDTH 18.1 % (11.7-14.4)
[2022-09-07 07:34] LABS: ALBUMIN 2.3 g/dL (3.5-5.0); ALBUMIN/GLOBULIN RATIO 0.9 (0.8-2.0); ANION GAP 13.3 mmol/L (8-16); CALCIUM 8.1 mg/dL (8.4-10.2); CREATININE, SERUM 0.92 mg/dL (0.57-1.11); POTASSIUM 3.3 mmol/L (3.5-5.1)
[2022-09-07] MEDS: MIDODRINE HCL 5 MG TABLET PO SCH ×3 (08:30→17:49)
[2022-09-07] MEDS: INSULIN REGULAR, HUMAN 100 UNIT/1 ML SQ SCH ×4 (08:31→20:42)
[2022-09-07] MEDS ORDERED: POTASSIUM CHLORIDE 20MEQ/100ML 200 ML IV ONE (09:00)
[2022-09-07] MEDS ORDERED: SODIUM CHLORIDE 0.9% 100 ML IV ONE (09:00)
[2022-09-07] MEDS ORDERED: SODIUM CHLORIDE 0.9% 1000ML 1,000 ML ONE (09:52)
[2022-09-07] MEDS: AMIODARONE HCL 200 MG TAB PO SCH (09:58)
[2022-09-07] MEDS: POLYETHYLENE GLYCOL 3350 17 GM PACK PO SCH ×2 (09:58→17:50)
[2022-09-07] MEDS: HYDROCORTISONE 10 MG TAB PO SCH ×2 (09:58→17:49)
[2022-09-07] MEDS: NITROFURANTOIN MACROCRYSTALS 100 MG CAP PO SCH ×2 (09:58→17:50)
[2022-09-07] MEDS: COLLAGENASE 5 GM TUBE TOP SCH (09:59)
[2022-09-07] MEDS: BACITRACIN ZINC 15 GM OINT TOP SCH (09:59)
[2022-09-07] MEDS: ACETAZOLAMIDE 250 MG TAB PO SCH (17:50)
[2022-09-08] VITALS (21 sets, daily range): BP systolic 101–161; BP diastolic 54–93
[2022-09-08 06:54] LABS: BASOPHILS % 0.1 % (0.0-1.0); EOSINOPHILS # (AUTO) 0.1 (0.0-0.4); EOSINOPHILS % 0.8 % (0.0-6.0); HEMATOCRIT 32.2 % (34.2-44.1); HEMOGLOBIN 10.1 g/dL (12.0-16.0); LYMPHOCYTES # (AUTO) 1.1 (1.0-3.2); LYMPHOCYTES % 12.8 % (18.0-39.1); MEAN CORPUSCULAR HEMOGLOBIN 26.4 pg (28-32); MEAN CORPUSCULAR HGB CONC 31.4 g/dL (31-35); MEAN CORPUSCULAR VOLUME 84.1 fL (81-99); MONOCYTES # (AUTO) 0.5 (0.2-0.8); MONOCYTES % 6.4 % (4.4-11.3); NEUTROPHILS # (AUTO) 6.6 (2.1-6.9); NEUTROPHILS % 79.3 % (38.7-80.0); PLATELET COUNT 82 x10e3/uL (140-360); RED BLOOD COUNT 3.83 x10e6/uL (3.6-5.1); RED CELL DISTRIBUTION WIDTH 19.2 % (11.7-14.4)
[2022-09-08 07:18] LABS: ALBUMIN 2.3 g/dL (3.5-5.0); ALBUMIN/GLOBULIN RATIO 0.9 (0.8-2.0); ANION GAP 11.5 mmol/L (8-16); CREATININE, SERUM 0.83 mg/dL (0.57-1.11); POTASSIUM 3.5 mmol/L (3.5-5.1)
[2022-09-08] MEDS: MIDODRINE HCL 5 MG TABLET PO SCH ×3 (08:00→12:00)
[2022-09-08] MEDS ORDERED: POTASSIUM CHLORIDE 20MEQ/100ML 200 ML IV ONE (08:30)
[2022-09-08] MEDS: HYDROCORTISONE 10 MG TAB PO SCH ×2 (08:43→17:31)
[2022-09-08] MEDS: NITROFURANTOIN MACROCRYSTALS 100 MG CAP PO SCH ×2 (08:43→17:31)
[2022-09-08] MEDS: ACETAZOLAMIDE 250 MG TAB PO SCH ×2 (08:43→17:31)
[2022-09-08] MEDS: AMIODARONE HCL 200 MG TAB PO SCH (08:43)
[2022-09-08] MEDS: COLLAGENASE 5 GM TUBE TOP SCH (08:44)
[2022-09-08] MEDS: INSULIN REGULAR, HUMAN 100 UNIT/1 ML SQ SCH ×3 (08:45→17:32)
[2022-09-08] MEDS: POLYETHYLENE GLYCOL 3350 17 GM PACK PO SCH ×2 (08:48→17:31)
== END 2022-09-08 21:36 | DRG 871 ==
LOC: ER 07:27 → ERHOLD 10:23 → ICU 11:53
PROVIDERS: ADMIT Internal Medicine; ATTEND Internal Medicine
PROC: 02HV33Z Insertion of Infusion Device into Superior Vena Cava, Percutaneous Approach (ICD-10-PCS; principal; 2022-08-30)
PROC: B548ZZA Ultrasonography of Superior Vena Cava, Guidance (ICD-10-PCS; 2022-08-30)
PROC: 3E04329 Introduction of Other Anti-infective into Central Vein, Percutaneous Approach (ICD-10-PCS; 2022-08-30)
PROC: 3E04329 Introduction of Other Anti-infective into Central Vein, Percutaneous Approach (ICD-10-PCS; 2022-08-30)
PROC: 3E04329 Introduction of Other Anti-infective into Central Vein, Percutaneous Approach (ICD-10-PCS; 2022-09-01)
PROC: 3E04329 Introduction of Other Anti-infective into Central Vein, Percutaneous Approach (ICD-10-PCS; 2022-09-02)
PROC: 3E04329 Introduction of Other Anti-infective into Central Vein, Percutaneous Approach (ICD-10-PCS; 2022-09-03)
DX: A40.9 Streptococcal sepsis, unspecified (principal); E11.10 Type 2 diabetes mellitus with ketoacidosis without coma; G93.41 Metabolic encephalopathy; I50.23 Acute on chronic systolic (congestive) heart failure; L89.153 Pressure ulcer of sacral region, stage 3; R65.21 Severe sepsis with septic shock; N17.0 Acute kidney failure with tubular necrosis; N39.0 Urinary tract infection, site not specified; I13.0 Hypertensive heart and chronic kidney disease with heart failure and stage 1 through stage 4 chronic kidney disease, or unspecified chronic kidney disease; E87.1 Hypo-osmolality and hyponatremia; I42.8 Other cardiomyopathies; K62.5 Hemorrhage of anus and rectum; E87.3 Alkalosis; E86.0 Dehydration; I95.9 Hypotension, unspecified; R77.8 Other specified abnormalities of plasma proteins; T46.0X5A Adverse effect of cardiac-stimulant glycosides and drugs of similar action, initial encounter; L89.156 Pressure-induced deep tissue damage of sacral region; L89.896 Pressure-induced deep tissue damage of other site; F32.A Depression, unspecified; K21.9 Gastro-esophageal reflux disease without esophagitis; I48.91 Unspecified atrial fibrillation; R13.10 Dysphagia, unspecified; E78.5 Hyperlipidemia, unspecified; F03.90 Unspecified dementia, unspecified severity, without behavioral disturbance, psychotic disturbance, mood disturbance, and anxiety; M19.90 Unspecified osteoarthritis, unspecified site; M54.9 Dorsalgia, unspecified; E86.1 Hypovolemia; E87.6 Hypokalemia; R62.7 Adult failure to thrive; T47.1X5A Adverse effect of other antacids and anti-gastric-secretion drugs, initial encounter; G89.29 Other chronic pain; K56.41 Fecal impaction; N18.30 Chronic kidney disease, stage 3 unspecified; I08.3 Combined rheumatic disorders of mitral, aortic and tricuspid valves; E87.5 Hyperkalemia; R45.1 Restlessness and agitation; E78.00 Pure hypercholesterolemia, unspecified; E11.22 Type 2 diabetes mellitus with diabetic chronic kidney disease; J44.9 Chronic obstructive pulmonary disease, unspecified; Z95.810 Presence of automatic (implantable) cardiac defibrillator; Z90.49 Acquired absence of other specified parts of digestive tract; Z88.5 Allergy status to narcotic agent; Z79.82 Long term (current) use of aspirin; Z79.899 Other long term (current) drug therapy; Z79.84 Long term (current) use of oral hypoglycemic drugs; Z86.718 Personal history of other venous thrombosis and embolism; Z86.711 Personal history of pulmonary embolism; Z98.890 Other specified postprocedural states; Z82.49 Family history of ischemic heart disease and other diseases of the circulatory system; Z90.710 Acquired absence of both cervix and uterus; Z68.25 Body mass index [BMI] 25.0-25.9, adult; Z66 Do not resuscitate
CPT/HCPCS: 36415; 36555; 51700; 71045; 74018; 74176; 80053; 80061; 80162; 81001; 82550; 82553; 82948; 83605; 83735; 83880; 84100; 84484; 85025; 85610; 85730; 86850; 86900; 87040; 87086; 87186; 93306; 94799; 96372; 99252; 99284; J0692; J1720; J1817; J2020; J2185; J2543; J2920; J3370; J3475; J3480; J3486; J7030; J7040; J7050; J7070; J7799; P9045

== ENCOUNTER 2022-10-19 14:07 | Emergency (ER) | payer MEDICARE ==
[~2022-10-19] VITALS: Ht 160 cm; Wt 64.9 kg
[~2022-10-19 14:07] MED LIST changes: +AMITIZA24 MCG PO; +COLACE100 M1 PO; +CYMBALTA30 MG PO; +MIRTAZAPINE7.5 MG PO; +OXYBUTYNIN CHLOR5 M1 PO; +PROTONIX20 MG PO; +SYMBICORT 16010.2 GM INH
== END 2022-10-19 15:46 | disposition left against medical advice (07) ==
LOC: ER 14:26
DX: Z45.2 Encounter for adjustment and management of vascular access device (principal)

== ENCOUNTER 2023-02-10 14:37 | Inpatient (IN) | payer MEDICARE ==
[~2023-02-10] VITALS: Ht 160 cm; Wt 64.9 kg
[~2023-02-10 14:37] MED LIST changes: +LIDOCAINE HCL 2% LOCAL INJ 5 ML SDV VIAL INJ ONE; +PHENYLEPHRINE HCL 1% 10 MG/ML VIAL ONE; +POVIDONE IODINE 0.05% 0.05 % ML PO ONE; +PROPOFOL IV EMULSION 10 MG/ML 20 ML VIAL ONE
[2023-02-10] MEDS ORDERED: SODIUM CHLORIDE FLUSH 10 ML SYR IV PRN (15:30)
[2023-02-10 15:34] LABS: BASOPHILS # (AUTO) 0.1 (0.0-0.1); BASOPHILS % 0.9 % (0.0-1.0); EOSINOPHILS # (AUTO) 0.7 (0.0-0.4); EOSINOPHILS % 8.2 % (0.0-6.0); HEMATOCRIT 33.9 % (34.2-44.1); HEMOGLOBIN 11.1 g/dL (12.0-16.0); LYMPHOCYTES # (AUTO) 2.4 (1.0-3.2); LYMPHOCYTES % 29.6 % (18.0-39.1); MEAN CORPUSCULAR HEMOGLOBIN 28.1 pg (28-32); MEAN CORPUSCULAR HGB CONC 32.7 g/dL (31-35); MEAN CORPUSCULAR VOLUME 85.8 fL (81-99); MONOCYTES # (AUTO) 0.6 (0.2-0.8); MONOCYTES % 7.3 % (4.4-11.3); NEUTROPHILS # (AUTO) 4.3 (2.1-6.9); NEUTROPHILS % 53.9 % (38.7-80.0); PLATELET COUNT 166 x10e3/uL (140-360); RED BLOOD COUNT 3.95 x10e6/uL (3.6-5.1); RED CELL DISTRIBUTION WIDTH 15.5 % (11.7-14.4)
[2023-02-10 15:48] LABS: ALANINE AMINOTRANSFERASE 6 IU/L (0-55); ALBUMIN 3.2 g/dL (3.5-5.0); ALKALINE PHOSPHATASE 55 IU/L (40-150); ANION GAP 16.4 mmol/L (8-16); BLOOD UREA NITROGEN 48 mg/dL (7-26); BUN/CREATININE RATIO 51 (6-25); CALCIUM 9.1 mg/dL (8.4-10.2); CARBON DIOXIDE 18 mmol/L (22-29); CHLORIDE 108 mmol/L (98-107); CREATININE, SERUM 0.95 mg/dL (0.57-1.11); GLUCOSE 81 mg/dL (74-118); POTASSIUM 4.4 mmol/L (3.5-5.1); SODIUM 138 mmol/L (136-145)
[2023-02-10] MEDS ORDERED: SODIUM CHLORIDE FLUSH 10 ML SYR INJ PRN (16:45)
[2023-02-10] MEDS ORDERED: ONDANSETRON HCL INJ 2MG/ML 2ML 2 MG/ML VIAL IV PRN (16:45)
[2023-02-10 17:13] VITALS: PULSE 74; RESP 20; O2SAT 97
[2023-02-10] MEDS ORDERED: SODIUM CHLORIDE 0.9% 1000ML 500 ML IV STA (17:40)
[2023-02-10] MEDS ORDERED: SODIUM CHLORIDE 0.9% 500ML 500 ML ONE (17:42)
[2023-02-10] MEDS ORDERED: MELATONIN 3 MG TAB PO PRN (19:30)
[2023-02-10] MEDS ORDERED: DOCUSATE SODIUM 100 MG CAP PO PRN (19:30)
[2023-02-10] MEDS ORDERED: METOPROLOL TARTRATE INJ 1 MG/ML VIAL IV PRN (19:30)
[2023-02-10] MEDS ORDERED: ALBUTEROL/IPRATROPIUM 3 ML NEB NEB PRN (19:30)
[2023-02-10] MEDS ORDERED: IOPAMIDOL 370 MG/ML 100 ML INFUS..BTL INJ ONE (20:09)
[2023-02-10 20:16] LABS: CHOL/HDL RATIO 3.7 (3.0-3.6)
[2023-02-10] MEDS ORDERED: MIDODRINE HCL 5 MG TABLET PO SCH (20:30)
[2023-02-10] MEDS: ASPIRIN 325 MG TAB PO SCH (20:54)
[2023-02-10] MEDS: ENOXAPARIN SOD INJ 60 MG/0.6 ML SYR SC SCH (20:54)
[2023-02-11] VITALS (8 sets, daily range): BP systolic 87–107; BP diastolic 50–68; PULSE 70–85; RESP 16–18; TEMP 97.6–98.7; O2SAT 97–100
[2023-02-11 06:50] LABS: BASOPHILS # (AUTO) 0.1 (0.0-0.1); BASOPHILS % 1.2 % (0.0-1.0); EOSINOPHILS # (AUTO) 0.6 (0.0-0.4); EOSINOPHILS % 9.5 % (0.0-6.0); HEMATOCRIT 32.1 % (34.2-44.1); HEMOGLOBIN 10.6 g/dL (12.0-16.0); LYMPHOCYTES % 29.5 % (18.0-39.1); MEAN CORPUSCULAR HEMOGLOBIN 28.3 pg (28-32); MEAN CORPUSCULAR VOLUME 85.8 fL (81-99); MONOCYTES # (AUTO) 0.5 (0.2-0.8); MONOCYTES % 7.1 % (4.4-11.3); NEUTROPHILS # (AUTO) 3.5 (2.1-6.9); NEUTROPHILS % 52.5 % (38.7-80.0); PLATELET COUNT 154 x10e3/uL (140-360); RED BLOOD COUNT 3.74 x10e6/uL (3.6-5.1); RED CELL DISTRIBUTION WIDTH 15.6 % (11.7-14.4)
[2023-02-11 07:13] LABS: ALBUMIN 2.9 g/dL (3.5-5.0); ALKALINE PHOSPHATASE 39 IU/L (40-150); BLOOD UREA NITROGEN 41 mg/dL (7-26); BUN/CREATININE RATIO 50 (6-25); CALCIUM 8.7 mg/dL (8.4-10.2); CARBON DIOXIDE 19 mmol/L (22-29); CHLORIDE 112 mmol/L (98-107); CREATININE, SERUM 0.82 mg/dL (0.57-1.11); GLUCOSE 67 mg/dL (74-118); SODIUM 141 mmol/L (136-145)
[2023-02-11 07:29] LABS: ALANINE AMINOTRANSFERASE < 6 IU/L (0-55)
[2023-02-11 07:48] LABS: CREATINE KINASE 17 IU/L (29-168)
[2023-02-11] MEDS: ENOXAPARIN SOD INJ 60 MG/0.6 ML SYR SC SCH (08:50)
[2023-02-11] MEDS: ASPIRIN 325 MG TAB PO SCH (08:50)
[2023-02-12] VITALS (11 sets, daily range): BP systolic 83–162; BP diastolic 55–110; PULSE 82–101; RESP 15–19; TEMP 97.6–98.6; O2SAT 92–100
[2023-02-12] MEDS: ASPIRIN 325 MG TAB PO SCH (08:43)
[2023-02-12] MEDS: ENOXAPARIN SOD INJ 40 MG/0.4 ML SYR SC SCH (08:43)
[2023-02-12 09:31] LABS: ANION GAP 13.2 mmol/L (8-16); CREATININE, SERUM 0.85 mg/dL (0.57-1.11); POTASSIUM 4.2 mmol/L (3.5-5.1)
[2023-02-13] VITALS (11 sets, daily range): BP systolic 85–101; BP diastolic 52–63; PULSE 78–98; RESP 14–21; TEMP 97.7–98.8; O2SAT 94–100
[2023-02-13] MEDS: ENOXAPARIN SOD INJ 40 MG/0.4 ML SYR SC SCH (08:48)
[2023-02-13] MEDS: ASPIRIN 325 MG TAB PO SCH (08:48)
[2023-02-13] MEDS: ACETAMINOPHEN 325 MG TAB PO PRN ×2 (08:48→21:31)
[2023-02-14] VITALS (9 sets, daily range): BP systolic 79–98; BP diastolic 50–61; PULSE 89–102; RESP 15–21; TEMP 97.6–98.4; O2SAT 96–100
[2023-02-14 06:18] LABS: BASOPHILS # (AUTO) 0.1 (0.0-0.1); BASOPHILS % 0.9 % (0.0-1.0); EOSINOPHILS # (AUTO) 0.7 (0.0-0.4); HEMATOCRIT 29.7 % (34.2-44.1); HEMOGLOBIN 9.5 g/dL (12.0-16.0); LYMPHOCYTES # (AUTO) 1.9 (1.0-3.2); LYMPHOCYTES % 29.8 % (18.0-39.1); MEAN CORPUSCULAR HEMOGLOBIN 28.2 pg (28-32); MEAN CORPUSCULAR VOLUME 88.1 fL (81-99); MONOCYTES # (AUTO) 0.5 (0.2-0.8); MONOCYTES % 7.5 % (4.4-11.3); NEUTROPHILS # (AUTO) 3.3 (2.1-6.9); NEUTROPHILS % 50.5 % (38.7-80.0); PLATELET COUNT 127 x10e3/uL (140-360); RED BLOOD COUNT 3.37 x10e6/uL (3.6-5.1)
[2023-02-14 06:39] LABS: ANION GAP 13.4 mmol/L (8-16); CREATININE, SERUM 0.79 mg/dL (0.57-1.11); POTASSIUM 4.4 mmol/L (3.5-5.1)
[2023-02-14] MEDS: ASPIRIN 325 MG TAB PO SCH (11:08)
[2023-02-14] MEDS: ENOXAPARIN SOD INJ 40 MG/0.4 ML SYR SC SCH (11:09)
[2023-02-15] VITALS (9 sets, daily range): BP systolic 82–96; BP diastolic 53–64; PULSE 71–96; RESP 16–20; TEMP 97.5–98.1; O2SAT 97–100
[2023-02-15 01:15] LABS: % IRON SATURATION 20 % (15-50); IRON 45 ug/dL (50-170); TOTAL IRON BINDING CAPACITY 227 ug/dL (261-478); TRANSFERRIN 162 mg/dL (180-382)
[2023-02-15 07:42] LABS: BASOPHILS # (AUTO) 0.1 (0.0-0.1); BASOPHILS % 0.9 % (0.0-1.0); EOSINOPHILS # (AUTO) 0.8 (0.0-0.4); EOSINOPHILS % 11.7 % (0.0-6.0); HEMOGLOBIN 9.5 g/dL (12.0-16.0); MEAN CORPUSCULAR HEMOGLOBIN 28.7 pg (28-32); MEAN CORPUSCULAR HGB CONC 31.7 g/dL (31-35); MEAN CORPUSCULAR VOLUME 90.6 fL (81-99); MONOCYTES # (AUTO) 0.5 (0.2-0.8); MONOCYTES % 6.6 % (4.4-11.3); NEUTROPHILS # (AUTO) 3.7 (2.1-6.9); NEUTROPHILS % 52.4 % (38.7-80.0); PLATELET COUNT 129 x10e3/uL (140-360); RED BLOOD COUNT 3.31 x10e6/uL (3.6-5.1); RED CELL DISTRIBUTION WIDTH 15.9 % (11.7-14.4)
[2023-02-15] MEDS: MIDODRINE 2.5 MG TAB PO SCH ×3 (08:00→16:56)
[2023-02-15 08:06] LABS: ANION GAP 12.4 mmol/L (8-16); CALCIUM 9.6 mg/dL (8.4-10.2); CREATININE, SERUM 0.85 mg/dL (0.57-1.11); POTASSIUM 4.4 mmol/L (3.5-5.1)
[2023-02-15] MEDS: ENOXAPARIN SOD INJ 40 MG/0.4 ML SYR SC SCH (09:00)
[2023-02-15] MEDS: ASPIRIN 325 MG TAB PO SCH (09:00)
[2023-02-15] MEDS ORDERED: SODIUM CHLORIDE 0.9% 500ML 500 ML ONE (09:34)
[2023-02-15] MEDS ORDERED: SODIUM CHLORIDE 0.9% 500ML 500 ML IV ONE (09:45)
[2023-02-15] MEDS ORDERED: IRON SUCROSE 100 MG in SODIUM CHLORIDE 0.9% 100 ML IV SCH (11:00)
[2023-02-15] MEDS: IRON SUCROSE 100 MG in SODIUM CHLORIDE 0.9% 100 ML IV SCH (15:01)
[2023-02-16] VITALS (7 sets, daily range): BP systolic 83–100; BP diastolic 53–65; PULSE 91–99; RESP 16–21; TEMP 97.5–98.5; O2SAT 96–100
[2023-02-16] MEDS ORDERED: FERROUS SULFAT325 MG PO (06:51)
[2023-02-16] MEDS ORDERED: ACETAMINOPHEN325 M1 PO (06:51)
[2023-02-16] MEDS ORDERED: Docusate Sodium PO (06:51)
[2023-02-16] MEDS ORDERED: MIDODRINE HCL2.5 MG PO (06:51)
[2023-02-16] MEDS ORDERED: PANTOPRAZOLE SO40 MG PO (06:51)
[2023-02-16] MEDS ORDERED: SENOKOT8.6 MG PO (06:52)
[2023-02-16] MEDS ORDERED: ECOTRIN81 MG PO (06:54)
[2023-02-16] MEDS ORDERED: ATORVASTATIN CA40 MG PO (06:59)
[2023-02-16] MEDS ORDERED: SODIUM CHLORIDE 0.9% 500ML 500 ML IV ONE (07:00)
[2023-02-16] MEDS ORDERED: SODIUM CHLORIDE 0.9% 250ML 250 ML IV ONE (07:15)
[2023-02-16] MEDS: ASPIRIN 325 MG TAB PO SCH (08:26)
[2023-02-16] MEDS: ENOXAPARIN SOD INJ 40 MG/0.4 ML SYR SC SCH (08:27)
[2023-02-16] MEDS: FLUDROCORTISONE ACETATE 0.1 MG TAB PO SCH ×2 (08:27→11:59)
[2023-02-16] MEDS: MIDODRINE 2.5 MG TAB PO SCH ×3 (08:34→16:26)
[2023-02-16] MEDS ORDERED: LACTASE 3,000 UNIT TAB PO SCH (09:00)
[2023-02-16] MEDS ORDERED: ONDANSETRON HCL 4 MG ORAL DISINTEGRATING TAB PO PRN (12:30)
[2023-02-16] MEDS: IRON SUCROSE 100 MG in SODIUM CHLORIDE 0.9% 100 ML IV SCH (14:14)
[2023-02-17] MEDS ORDERED: PANTOPRAZOLE SOD 40 MG TABEC PO SCH (07:30)
== END 2023-02-16 19:26 | DRG 291 ==
LOC: ER 15:02 → ERHOLD 16:46 → MED/SURG2 02-11 00:06 → OBSVTOIN 02-11 16:09
PROVIDERS: ADMIT Internal Medicine; ATTEND Internal Medicine
PROC: 02HV33Z Insertion of Infusion Device into Superior Vena Cava, Percutaneous Approach (ICD-10-PCS; 2023-02-10)
PROC: B548ZZA Ultrasonography of Superior Vena Cava, Guidance (ICD-10-PCS; 2023-02-10)
PROC: 0D20XUZ Change Feeding Device in Upper Intestinal Tract, External Approach (ICD-10-PCS; principal; 2023-02-15 11:15)
DX: I11.0 Hypertensive heart disease with heart failure (principal); I50.23 Acute on chronic systolic (congestive) heart failure; L89.153 Pressure ulcer of sacral region, stage 3; K94.23 Gastrostomy malfunction; N39.0 Urinary tract infection, site not specified; E44.0 Moderate protein-calorie malnutrition; E87.20 Acidosis, unspecified; I48.20 Chronic atrial fibrillation, unspecified; Y83.8 Other surgical procedures as the cause of abnormal reaction of the patient, or of later complication, without mention of misadventure at the time of the procedure; Y73.8 Miscellaneous gastroenterology and urology devices associated with adverse incidents, not elsewhere classified; K44.9 Diaphragmatic hernia without obstruction or gangrene; J44.9 Chronic obstructive pulmonary disease, unspecified; K21.00 Gastro-esophageal reflux disease with esophagitis, without bleeding; E78.5 Hyperlipidemia, unspecified; G89.29 Other chronic pain; M19.90 Unspecified osteoarthritis, unspecified site; R53.81 Other malaise; E11.649 Type 2 diabetes mellitus with hypoglycemia without coma; F03.90 Unspecified dementia, unspecified severity, without behavioral disturbance, psychotic disturbance, mood disturbance, and anxiety; R13.10 Dysphagia, unspecified; K46.9 Unspecified abdominal hernia without obstruction or gangrene; Z86.718 Personal history of other venous thrombosis and embolism; Z86.711 Personal history of pulmonary embolism; Z95.810 Presence of automatic (implantable) cardiac defibrillator; Z87.440 Personal history of urinary (tract) infections; Z90.49 Acquired absence of other specified parts of digestive tract; Z74.01 Bed confinement status; Z82.49 Family history of ischemic heart disease and other diseases of the circulatory system; Y92.129 Unspecified place in nursing home as the place of occurrence of the external cause; Z20.822 Contact with and (suspected) exposure to COVID-19; Z68.25 Body mass index [BMI] 25.0-25.9, adult
CPT/HCPCS: 0223U; 36415; 36569; 43246; 71045; 71260; 80048; 80053; 80061; 82533; 82550; 82607; 82746; 82948; 83540; 83880; 84466; 84484; 85025; 85045; 93005; 93306; 94760; 94799; 99284; G0378; J1650; J1756; J2001; J2370; J2405; J7040; J7050; Q9967

== ENCOUNTER 2023-03-05 11:54 | Inpatient (IN) | payer MEDICARE, OTHER ==
[~2023-03-05] VITALS: Ht 160 cm; Wt 55.8 kg
[~2023-03-05 11:54] MED LIST changes: +ACETAMINOPHEN325 M1 PO; +ATORVASTATIN CA40 MG PO; +CEPHALEXIN500 MG PO; +Docusate Sodium PO; +ECOTRIN81 MG PO; +FERROUS SULFAT325 MG PO; +LASIX20 MG PO; -LIDOCAINE HCL 2% LOCAL INJ 5 ML SDV VIAL INJ ONE; +MIDODRINE HCL2.5 MG PO; +PANTOPRAZOLE SO40 MG PO; -PHENYLEPHRINE HCL 1% 10 MG/ML VIAL ONE; -POVIDONE IODINE 0.05% 0.05 % ML PO ONE; -PROPOFOL IV EMULSION 10 MG/ML 20 ML VIAL ONE; +SENOKOT8.6 MG PO
[2023-03-05 13:17] LABS: BASOPHILS % 0.4 % (0.0-1.0); EOSINOPHILS # (AUTO) 0.1 (0.0-0.4); EOSINOPHILS % 1.1 % (0.0-6.0); HEMATOCRIT 36.8 % (34.2-44.1); HEMOGLOBIN 12.2 g/dL (12.0-16.0); LYMPHOCYTES % 10.7 % (18.0-39.1); MEAN CORPUSCULAR HEMOGLOBIN 28.3 pg (28-32); MEAN CORPUSCULAR HGB CONC 33.2 g/dL (31-35); MEAN CORPUSCULAR VOLUME 85.4 fL (81-99); MONOCYTES # (AUTO) 1.5 (0.2-0.8); MONOCYTES % 15.8 % (4.4-11.3); NEUTROPHILS # (AUTO) 6.9 (2.1-6.9); NEUTROPHILS % 71.4 % (38.7-80.0); PLATELET COUNT 75 x10e3/uL (140-360); RED BLOOD COUNT 4.31 x10e6/uL (3.6-5.1); RED CELL DISTRIBUTION WIDTH 15.5 % (11.7-14.4)
[2023-03-05 13:32] LABS: ALBUMIN 3.1 g/dL (3.5-5.0); ALBUMIN/GLOBULIN RATIO 0.8 (0.8-2.0); ANION GAP 18.1 mmol/L (8-16); CALCIUM 8.8 mg/dL (8.4-10.2); CREATININE, SERUM 1.45 mg/dL (0.57-1.11)
[2023-03-05 13:38] LABS: POTASSIUM 5.1 mmol/L (3.5-5.1)
[2023-03-05 14:19] LABS: INR 1.39; PROTHROMBIN TIME 17.9 seconds (11.9-14.5)
[2023-03-05 14:20] LABS: PARTIAL THROMBOPLASTIN TIME 35.5 seconds (23.8-35.5)
[2023-03-05] MEDS: SODIUM CHLORIDE 0.9% 1000ML 1,000 ML IV SCH (15:01)
[2023-03-05 20:00] VITALS: BP 90/68; PULSE 97; RESP 18; TEMP 97.8; O2SAT 99
[2023-03-05] MEDS: Morphine 4mg INJECTION 4 MG/ML INJ IV PRN (21:30)
[2023-03-06] VITALS (7 sets, daily range): BP systolic 99–110; BP diastolic 56–73; PULSE 82–102; RESP 15–18; TEMP 97.6–98.3; O2SAT 98–100
[2023-03-06] MEDS: SODIUM CHLORIDE 0.9% 1000ML 1,000 ML IV SCH ×3 (00:39→15:26)
[2023-03-06] MEDS ORDERED: DIATRIZOATE MEGL/DIATRIZOA SOD 30 ML BTL PO ONE (01:50)
[2023-03-06] MEDS ORDERED: ONDANSETRON HCL INJ 2MG/ML 2ML 2 MG/ML VIAL IV PRN (14:00)
[2023-03-06] MEDS ORDERED: DEXTROSE 50% SYRINGE 50 ML IV PRN (19:30)
[2023-03-06] MEDS: INSULIN REGULAR, HUMAN 100 UNIT/1 ML SQ SCH (21:52)
[2023-03-07] VITALS (8 sets, daily range): BP systolic 92–113; BP diastolic 43–73; PULSE 70–95; RESP 18–22; TEMP 97.5–98.2; O2SAT 99–100
[2023-03-07] MEDS: Morphine 4mg INJECTION 4 MG/ML INJ IV PRN ×2 (00:21→22:08)
[2023-03-07] MEDS: SODIUM CHLORIDE 0.9% 1000ML 1,000 ML IV SCH ×2 (03:34→16:41)
[2023-03-07 06:05] LABS: ANION GAP 18.4 mmol/L (8-16); CALCIUM 8.3 mg/dL (8.4-10.2); CREATININE, SERUM 1.43 mg/dL (0.57-1.11); POTASSIUM 4.4 mmol/L (3.5-5.1)
[2023-03-07] MEDS: INSULIN REGULAR, HUMAN 100 UNIT/1 ML SQ SCH ×4 (07:30→22:10)
[2023-03-08] VITALS: BP 95/59; PULSE 95; RESP 18; TEMP 98.7; O2SAT 100
[2023-03-08 04:00] VITALS: BP 97/65; PULSE 96; RESP 18; TEMP 98.7; O2SAT 100
[2023-03-08 05:29] LABS: ANION GAP 16.3 mmol/L (8-16); CALCIUM 8.3 mg/dL (8.4-10.2); CREATININE, SERUM 1.45 mg/dL (0.57-1.11); POTASSIUM 4.3 mmol/L (3.5-5.1)
[2023-03-08 05:48] LABS: ALBUMIN 2.6 g/dL (3.5-5.0); BILIRUBIN,DIRECT 1.1 mg/dL (0.0-0.5)
[2023-03-08] MEDS: SODIUM CHLORIDE 0.9% 1000ML 1,000 ML IV SCH (06:06)
[2023-03-08 08:00] VITALS: BP 110/71; PULSE 96; RESP 22; TEMP 97.7; O2SAT 100
[2023-03-08] MEDS: INSULIN REGULAR, HUMAN 100 UNIT/1 ML SQ SCH ×2 (08:53→11:30)
[2023-03-08 08:55] VITALS: BP 110/71; PULSE 96; RESP 22; TEMP 97.7; O2SAT 100
[2023-03-08 12:00] VITALS: BP 99/63; PULSE 95; RESP 18; TEMP 97.6; O2SAT 100
== END 2023-03-08 13:10 | DRG 393 ==
LOC: ER 12:05 → MED/SURG 14:35 → ER 19:50 → OBSVTOIN 03-07 09:09
PROVIDERS: ADMIT Internal Medicine; ATTEND Internal Medicine
PROC: 0DH68UZ Insertion of Feeding Device into Stomach, Via Natural or Artificial Opening Endoscopic (ICD-10-PCS; principal; 2023-03-07 16:56)
DX: Z43.1 Encounter for attention to gastrostomy (principal); L89.313 Pressure ulcer of right buttock, stage 3; L89.323 Pressure ulcer of left buttock, stage 3; E87.1 Hypo-osmolality and hyponatremia; N17.9 Acute kidney failure, unspecified; I13.0 Hypertensive heart and chronic kidney disease with heart failure and stage 1 through stage 4 chronic kidney disease, or unspecified chronic kidney disease; I50.22 Chronic systolic (congestive) heart failure; E86.0 Dehydration; R13.10 Dysphagia, unspecified; K46.9 Unspecified abdominal hernia without obstruction or gangrene; K20.90 Esophagitis, unspecified without bleeding; N18.30 Chronic kidney disease, stage 3 unspecified; E11.22 Type 2 diabetes mellitus with diabetic chronic kidney disease; Z87.440 Personal history of urinary (tract) infections; E78.5 Hyperlipidemia, unspecified; G89.29 Other chronic pain; M54.9 Dorsalgia, unspecified; J44.9 Chronic obstructive pulmonary disease, unspecified; F32.A Depression, unspecified; D64.9 Anemia, unspecified; Z86.718 Personal history of other venous thrombosis and embolism; Z95.810 Presence of automatic (implantable) cardiac defibrillator; Z79.82 Long term (current) use of aspirin; Z79.899 Other long term (current) drug therapy; Z74.01 Bed confinement status; Z20.822 Contact with and (suspected) exposure to COVID-19
CPT/HCPCS: 36415; 43246; 74018; 80048; 80053; 80076; 82948; 85025; 85610; 85730; 99284; G0378; J2270; J2405; J7030; Q9963